=== PATIENT | female | born 1965 | race Caucasian/White ===

== ENCOUNTER 2023-08-04 11:11 | Outpatient (OUT) | payer BC, SELFPAY ==
[2023-08-04 11:34] LABS: Basophils Percent Auto 0.3 % (0.2-2.0); Eosinophils Absolute Auto 0.1 10^3/uL (0.0-0.7); Hemoglobin 12.7 g/dL (12.0-16.0); Immature Granulocytes Abs Auto 0.01 10^3/uL (0.00-0.03); Immature Granulocytes Pct Auto 0.1 % (0.0-0.5); Lymphocytes Absolute Auto 1.5 10^3/uL (1.2-3.8); Lymphocytes Percent Auto 22.3 % (20.5-60.0); Mean Corpuscular HGB Conc 32.6 g/dL (29.9-35.2); Mean Corpuscular Hemoglobin 30.7 pg (26.7-34.0); Mean Corpuscular Volume 94.2 fL (81.0-99.0); Mean Platelet Volume 10.8 fL (9.5-13.5); Monocytes Absolute Auto 0.5 10^3/uL (0.3-0.8); Monocytes Percent Auto 7.7 % (1.7-12.0); Neutrophils Absolute Auto 4.6 10^3/uL (1.4-6.5); Neutrophils Percent Auto 68.6 % (43.0-75.0); Platelet Count 185 10^3/uL (150-450); Red Blood Count 4.14 10^6/uL (4.20-5.40); Red Cell Distribution Width 12.2 % (11.0-15.0); White Blood Count 6.8 10^3/uL (4.0-11.0)
[2023-08-04 12:00] LABS: Alanine Aminotransferase 22 U/L (14-59); Albumin Globulin Ratio 0.9; Albumin Level 3.3 g/dL (3.4-5.0); Alkaline Phosphatase 98 U/L (46-116); Anion Gap 9.4; Aspartate Amino Transferase 18 U/L (15-37); BUN Creatinine Ratio 15.3; Bilirubin Total 0.3 mg/dL (0.2-1.0); Calcium 8.2 mg/dL (8.5-10.1); Carbon Dioxide 29.7 mmol/L (21.0-32.0); Chloride 106 mmol/L (98-107); Chol HDL Ratio 2.7; Cholesterol 187 mg/dL (<=200); Estimated GFR (African America >60 (>=60); Estimated GFR (Non-African Ame 58 (>=60); Globulin 3.5 g/dL; Glucose 89 mg/dL (74-106); HDL Cholesterol 70 mg/dL (40-60); Potassium 4.1 mmol/L (3.5-5.1); Sodium 141 mmol/L (136-145); Thyroid Stimulating Hormone 2.283 uIU/mL (0.358-3.740); Total Protein 6.8 g/dL (6.4-8.2); Triglycerides 64 mg/dL (<=150); VLDL CHOLESTEROL 12.8 mg/dL
== END 2023-08-04 11:12 | disposition home or self-care (01) ==
LOC: LAB 11:15
PROVIDERS: PCP Family Medicine; Visit Provider Family Medicine
DX: Z00.00 Encounter for general adult medical examination without abnormal findings (principal)
CPT/HCPCS: 36415; 80053; 80061; 84443; 85025

== ENCOUNTER 2023-08-14 12:50 | Outpatient (OUT) | payer BC, SELFPAY ==
--- NOTE | 2023-08-14 12:57 | XR_ITS ---
The [address] [address] Patient Name: RASHAD ALMEIDA MRN: [id number] date: 1965 Sex: F Assigned Patient Location: [facility] Current Patient Location: [facility] Accession/Order Number: [id number] Exam Date: 08/14/2023 13:15 Report Date: 08/14/2023 13:39 At the request of: YNES YEE Procedure: XR DEXA axial skeleton EXAMINATION: XR DEXA axial skeleton, 08/14/2023 1:15 PM EST HISTORY: Asymptomatic Menopausal State Z78.0 COMPARISON: None. TECHNIQUE: Dual-energy X-ray absorptiometry (DEXA) bone density study performed for the axial skeleton. HISTORY: Asymptomatic Menopausal State Z78.0 FINDINGS: Bone mineral density AP spine L1-L4 measures 0.759 g/sq cm. This is a 70.9% reduction from the prior exam. Young adult T score -3.5. WHO classification: Osteoporosis. Total femoral bone mineral density is 0.787 g/sq cm. T score -1.7. WHO classification: Osteopenia XR/XR DEXA axial skeleton IMPRESSION: Significant reduction in bone mineral density, more than physiologic in amount Osteoporosis with high fracture risk Electronically authenticated by: SHAUNA ARNOLD Date: 08/14/2023 13:39
--- NOTE | 2023-08-14 12:57 | MM_ITS ---
Patient Name: RASHAD ALMEIDA MR#: [id number] : 1965 Exam Date: 08/14/2023 Ordering Doctor: DR Verona Corral M.D. RADIOLOGY REPORT PROCEDURE: MM TOMOSYNTHESIS SCREENING BI COMPARISON: MG MAMM SCREEN RADHA W CAD, 05/27/2018. MG MAMM SCREEN RADHA W CAD, 08/10/2020. INDICATIONS: Screening Calculator Name NCI Breast Cancer Risk Assessment Tool 5 Year Breast Cancer Risk 1.10% Lifetime Breast Cancer Risk 7.10% Personal Breast Cancer No Personal Ovarian Cancer No Treatments None Family Cancers Mother with lung cancer at age 72. LOCATION: [facility] BREAST COMPOSITION: Heterogeneously dense,which may obscure small masses. FINDINGS: DIAGNOSTIC CATEGORY 1--NEGATIVE. NO CHANGE FROM COMPARISON ASSESSMENT. Scattered benign-appearing calcifications are present. Scattered benign-appearing lymph nodes are present. RIGHT BREAST: No significant suspicious finding. LEFT BREAST: No significant suspicious finding. RECOMMENDATIONS: ROUTINE MAMMOGRAM AND CLINICAL EVALUATION IN 12 MONTHS. PLEASE NOTE: A NORMAL MAMMOGRAM DOES NOT EXCLUDE THE POSSIBILITY OF BREAST CANCER. A CLINICALLY SUSPICIOUS PALPABLE LUMP SHOULD BE BIOPSIED. Dictated by: Schuyler Amin MD on 08/14/2023 at 14:55 Approved by: Schuyler Amin MD on 08/14/2023 at 14:56
== END 2023-08-14 12:51 | disposition home or self-care (01) ==
PROVIDERS: PCP Family Medicine; Visit Provider Family Medicine
DX: Z12.31 Encounter for screening mammogram for malignant neoplasm of breast (principal); Z78.0 Asymptomatic menopausal state; Z80.1 Family history of malignant neoplasm of trachea, bronchus and lung; M81.0 Age-related osteoporosis without current pathological fracture
CPT/HCPCS: 77063; 77067; 77080

== ENCOUNTER 2023-09-01 18:29 | Emergency (ER) | payer BC, SELFPAY ==
[2023-09-01] VITALS (16 sets, daily range): BP systolic 101–162; BP diastolic 65–92; PULSE 83–112; RESP 18; TEMP 37.2; O2SAT 94–98; BMI 30.6
--- NOTE | 2023-09-01 19:14 | XR_ITS ---
The [address] [address] Patient Name: RASHAD ALMEIDA MRN: [id number] date: 1965 Sex: F Assigned Patient Location: ED.MAIN Current Patient Location: ED[facility]MAIN Accession/Order Number: [id number] Exam Date: 09/01/2023 20:00 Report Date: 09/01/2023 20:37 At the request of: REINA EASLEY Procedure: XR chest 1V EXAMINATION: XR chest 1V, , 09/01/2023 8:00 PM EST INDICATION: Chest tightness HISTORY: Ordering Provider Reason for Exam: Chest tightness Technologist Note: Additional: COMPARISON: Chest x-ray dated 10/11/2022. TECHNIQUE: Chest x-ray: One view. FINDINGS: No pneumothorax, pleural effusion or focal airspace consolidation. Heart is normal in size. Bony thorax is unremarkable. XR/XR chest 1V IMPRESSION: No acute cardiopulmonary process. Electronically authenticated by: KIKI MONTIEL Date: 09/01/2023 20:37
--- NOTE | 2023-09-01 19:14 | ECG_ITS ---
[facility] Test Date: 2023-09-01 Pat Name: RASHAD ALMEIDA Department: Room: - Gender: Female Manager Play: : 1965 Requested By: YNES YEE Order Number: [id number] Reading MD: MARI ANN Measurements Intervals [place] Rate: 126 P: 69 [place]: 170 QRS: 71 QRSD: 78 T: 23 QT: 288 QTc: 363 Interpretive Statements 1120 Sinus tachycardia 9150 abnormal ECG Electronically Signed On 09-02-2023 7:08:42 EST by MARI ANN
--- OUTSIDE RECORDS SUMMARY | 2023-09-01 19:14 | XMS_ITS | CCD ---
Author Name Unknown Address [address] [place] [address] [id number] [place] [address] Organization [facility] Care Team Providers Care Street Commissioner Name Role Phone Verona Corral Unavailable MYRIAM ., DR LORNE Gomez Attending Unavailable MIGUEL ., DR LORNE Gomez Consulting Unavailable MIGUEL ., DR LORNE Gomez Admitting Unavailable NAKIA, DR VERONA Gomez Primary Care Unavailable JEFFERSONVILLE, DR SHAUNA Tapia Consulting Unavailable MURILLO, WILLIS Consulting Unavailable DIABCHRISTOPHER Consulting Unavailable NAKIA, DR VERONA Gomez Attending Unavailable NAKIA, DR VERONA Gomez Consulting Unavailable NAKIA, DR VERONA Gomez Primary Care Unavailable CORRAL, DR VERONA Gomez Admitting Unavailable NAKIA, DR VERONA Gomez Attending Unavailable CORRAL, DR VERONA Gomez Consulting Unavailable CORRAL, DR VERONA Gomez Primary Care Unavailable NAKIA, DR VERONA Gomez Admitting Unavailable Verona Corral Unavailable Unavailable Unavailable Dr. Verona Corral Primary Care Unav ailable MD RITA ARMENTA Attending Unavailable MD RITA ARMENTA Referring Unavailable Rita Armenta Attending Unavailable Dr. Verona Corral Primary Care Unav ailable Allergies Allergy Classification Reported Allergen(s) Allergy Type Date of Onset Reaction(s) Facility (4 sources) patient allergy list reviewed by nurse or physicia Propensity to adverse reactions 8 Comment:Done [employer] Other (4 sources) Allergies Reconciled Propensity to adverse reactions Unknown [employer] Other Medications Current Medications Medication Drug Class(es) Dates Sig (Normalized) Sig (Original) clonazePAM 0.5 mg oral tablet (13 sources) Benzodiazepine Start: 08-27-2023 take 1 tablet by mouth once daily as needed clonazePAM 0.5 MG TAKE 1 TABLET BY MOUTH DAILY NEEDED for Jul, Active Start: 06-10-2023 take 1 tablet by gabriel th once daily as needed clonazePAM 0.5 MG TAKE 1 TABLET BY MOUTH DAILY NEEDED for May, Active Start: 03-25-2023 take 1 tablet by gabriel th once daily as needed clonazePAM 0.5 MG TAKE 1 TABLET BY MOUTH DAILY NEEDED for Feb, Active Start: 10-10-2022 clonazePAM 0.5 MG Oral Tablet Quantity: 90 Refills: 0 Ordered: 10-Oct-2022 DO Start : 10-Oct-2022 Active Start: 10-10-2022 take 1 tablet by gabriel th once daily as needed KlonoPIN 0.5 MG 1 tablet Orally daily prn for 90 days Oct, Active folic acid 0.8 mg oral capsule (13 sources) take 1 capsule by mo nch every twenty-four hours Folic Acid 0.8 MG 1 capsule Orally Once a day Active take 1 capsule by mouth once aden ly Folic Acid 0.8 MG 1 capsule Orally Once a day Active take 1 tablet by mouth once terri y Folic Acid 1 MG Oral Tablet TAKE 1 TABLET DAILY. Quantity: 0 Refills: 0 Ordered: 06-Nov-2022 DO Active ibandronic acid 150 mg oral tablet (1 source) Bisphosphonate take 1 tablet by mouth once daily Ibandronate Sodium 150 MG 1 tablet 60 minutes before the first food, beverage or medicine of the day with plain water Orally for 90 days Active ozempic (0.25 or 0.5 mg/dose) 2 mg/3ml solution pen-injector (2 sources) Ozempic (0.25 or 0.5 MG/DOSE) 2 MG/3ML 0.25mg Subcutaneous weekly for 28 days Active Completed/Discontinued Medications Medication Drug Class(es) Dates Sig (Normalized) Sig (Original) flecainide acetate 100 mg oral tablet (3 sources) Antiarrhythmic Start: 11-06-2022 Flecainide Acetate 100 MG Oral Tablet Take 2 tablets as needed for SVT Quantity: 6 Refills: 0 Ordered: 06-Nov-2022 Rita Armenta MD Start : 06-Nov-2022 Active magnesium oxide 400 mg oral tablet (3 sources) Start: 11-06-2022 take 1 tablet by mouth twice daily Magnesium Oxide 400 MG Oral Tablet TAKE 1 TABLET TWICE DAILY. Quantity: 180 Refills: 3 Ordered: 06-Nov-2022 Rita Armenta MD Start : 06-Nov-2022 Active new start meloxicam 15 mg oral tablet (6 sources) Nonsteroidal Anti-inflammatory Drug Start: 07-16-2022 take 1 tablet by mouth once daily as needed Meloxicam 15 MG Oral Tablet TAKE 1 TABLET DAILY NEEDED. Quantity: 0 Refills: 0 Ordered: 16-Jul-2022 DO Start : 16-Jul-2022 Active methotrexate 2.5 mg oral tablet (13 sources) Folate Analog Metabolic Inhibitor Start: 01-14-2022 take 6 tablets by mouth every week Methotrexate Sodium 2.5 MG Oral Tablet TAKE 6 TABLETS WEEKLY. Quantity: 0 Refills: 0 Ordered: 29-Jul-2022 DO Start : 14-Jan-2022 Active Methotrexate Act kelley metoprolol tartrate 50 mg oral tablet (3 sources) beta-Adrenergic Afshan Start: 11-06-2022 Metopr olol Tartrate 50 MG Oral Tablet Take 1 tablet as needed for SVT Quantity: 3 Refills: 0 Ordered: 06-Nov-2022 Rita Armenta MD Start : 06-Nov-2022 Active Triamcinolone (10 sources) Corticosteroid Start: 02-23-2015 KENALOG - 10 m g Jan, 40 mg Problems Active Problems Problem Classification Problem Date Documented Date Episodic/Chronic Anxiety disorders (20 sources) Anxiety; Translations: [Anxiety disorder, unspecified] Onset: 10-26-2017 Chronic Cardiac dysrhythmias (17 sources) Supraventricular tachycardia; Translations: [Supraventricular tachycardia] Onset: 10-14-2022 Chronic Cardiac dysrhythmias (13 sources) Palpitations; Translations: [Tachycardia, unspecified] Onset: 10-11-2022 Episodic E Codes: Adverse effects of medical drugs (1 source) Adverse effect of appetite depressants, initial encounter; Translations: [ADVERS EFF APPETITE DEPRESSANT INIT] Onset: 10-14-2022 Episodic Fluid and electrolyte disorders (1 source) Dehydration; Translations: [DEHYDRATION] Onset: 10-14-2022 Episodic Heart valve disorders (1 source) Rheumatic tricuspid insufficiency; Translations: [RHEUMATIC TRICUSPID INSUFFICIENCY] Onset: 10-29-2022 Chronic Mood disorders (10 sources) Major depressive disorder, single episode, unspecified; Translations: [Depression] Chronic Other aftercare (1 source) Other halfway (current) drug therapy; Translations: [OTH CHALK TESTER CURRENT DRUG THERAPY] Onset: 10-14-2022 Episodic Other aftercare (3 sources) Treatment changed; Translations: [Long-term (current) use of other medications] Episodic Other connective tissue disease (4 sources) Pain in left foot; Translations: [Pain in left foot] Episodic Other female genital disorders (4 sources) Dyspareunia; Translations: [Dyspareunia] Chronic Other inflammatory condition of skin (14 sources) Psoriasis; Translations: [Psoriasis, unspecified] Chronic Other inflammatory condition of skin (1 source) Psoriasis, unspecified; Translations: [PSORIASIS UNSPECIFIED] Onset: 10-14-2022 Chronic Other nutritional; endocrine; and metabolic disorders (16 sources) Body mass index 30+ - obesity; Translations: [Body mass index (BMI) 30.0-30.9, adult] Onset: 12-09-2018 Chronic Other nutritional; endocrine; and metabolic disorders (1 source) Body mass index (BMI) 30.0-30.9, adult Chronic Other nutritional; endocrine; and metabolic disorders (2 sources) Obesity; Translations: [Obesity, unspecified] Chronic Other nutritional; endocrine; and metabolic disorders (1 source) Obesity, unspecified Chronic Other nutritional; endocrine; and metabolic disorders (1 source) Body mass index (BMI) 31.0-31.9, adult Chronic Other nutritional; endocrine; and metabolic disorders (3 sources) Overweight in adulthood with body mass index of 25 or more but less than 30; Translations: [Overweight] Episodic Other nutritional; endocrine; and metabolic disorders (1 source) Overweight Episodic Other nutritional; endocrine; and metabolic disorders (1 source) Body mass index (BMI) 29.0-29.9, adult Episodic Other nutritional; endocrine; and metabolic disorders (20 sources) Body mass index 25-29 - overweight; Translations: [Body mass index (BMI) 28.0-28.9, adult] Onset: 12-09-2018 Episodic Other nutritional; endocrine; and metabolic disorders (4 sources) Overweight; Translations: [Overweight] Episodic Other screening for suspected conditions (not mental disorders or infectious disease) (1 source) Encounter for screening mammogram for malignant neoplasm of breast Episodic Otitis media and related conditions (4 sources) Non-suppurative otitis media; Translations: [Unspecified nonsuppurative otitis media, left ear] Episodic Residual codes; unclassified (1 source) Asymptomatic menopausal state Episodic Skin and subcutaneous tissue infections (4 sources) Localized infection of skin AND/OR subcutaneous tissue; Translations: [Local infection of the skin and subcutaneous tissue, unspecified] Episodic Unclassified (1 source) CONTACT W/AND (SUSP) EXPOS COVID-19; Translations: [CONTACT W/AND (SUSP) EXPOS COVID-19] Onset: 10-14-2022 Past or Other Problems Problem Classification Problem Date Documented Da te Episodic/Chronic Other bone disease and musculoskeletal deformities (4 sources) Bone density finding; Translations: [Other specified disorders of bone density and structure, unspecified site] Onset: 09-17-2017 Episodic Other lower respiratory disease (4 sources) Cough; Translations: [Cough] Onset: 10-11-2018 Episodic Other non-traumatic joint disorders (4 sources) Arthralgia of the lower leg; Translations: [Pain in joint, lower leg] Onset: 09-17-2017 Episodic Residual codes; unclassified (4 sources) Insomnia; Translations: [Insomnia, unspecified] Onset: 11-23-2017 Episodic Unclassified (3 sources) Patient status finding; Translations: [Patient new to provider] Unclassified (3 sources) Never smoked tobacco; Translations: [Never a smoker] Results Test Name Value Interpretation Reference Range Facility [facility] CARDIAC STRESS/REST INJE CTIONon 12-04-2022 [facility] CARDIAC STRESS/REST INJECTION Patient Name: LORENA ALMEIDA STUDY: MYOCARDIAL PERFUSION STRESS TEST WITH EXERCISE Performing facility: [facility], [address] [place] [address], [address], [place] [address] [facility] Provider: Rita Armenta MD, [facility] PCP: Dr. Luis Corral Supervising provider: Rita Armenta MD, [facility] INDICATION: Palpitations PSVT HISTORY: Gender: F; Age: 57 y/o ; Height: 0 cm; Weight: 0 kg. Arrhythmias; Palpitation, SVT Denies smoking. COMPARISON: No comparison. ACCESSION NUMBER(S): [id number]; [id number]; [id number] ORDERING CLINICIAN: RITA ARMENTA TECHNIQUE: ONE DAY protocol. Stress injection: Date:12-04-22, 35.7 mCi of Myoview IV at peak exercise. Rest injection: Date: 12-04-22, 10.9 mCi of Myoview IV at rest. Imaging was performed by gated tomographic technique. STRESS TEST DATA: Resting heart rate was 59 BPM. Resting blood pressure was 120/72 mmHg. The patient exercised using a Efrem exercise protocol. 7:00 minutes exercised. 107 % of MPHR achieved for age. 8.50 METS achieved. Maximum heart rate was 176 BPM. Maximum blood pressure was 148/80 mmHg. DTS 7. TEST TERMINATED DUE TO: Fatigue FINDINGS: STRESS TEST RESULTS: Resting electrocardiogram revealed normal sinus rhythm. The patient had no significant ECG changes with maximal stress. The patient did not have chest pains/symptoms during the procedure. There was a normal recovery phase. There were no significant dysrhythmias. IMAGING RESULTS: Image quality was good. Rest and stress tomographic images were reviewed and revealed normal perfusion without evidence of ischemia, myocardial infarction, or left ventricular dilatation with stress. Overall left ventricular systolic function appeared to be normal without regional wall motion abnormalities. LV ejection fraction was 65 %. TID is 1.1 and is normal. There were evidence of breast attenuation artifact. IMPRESSION: Normal exercise Myoview cardiac perfusion stress test. No evidence of ischemia or myocardial infarction by perfusion imaging. Normal left ventricular systolic function, ejection fraction 65%. No exercise provoked significant ischemic ECG changes or chest pain symptoms. No previous study available for comparison Good exercise tolerance. Electronically signed by: VINCENZO DUEÑAS MD Normal [facility] No Panel Informationon 12-04 Normal -[facility] Work Phone: Office Visit (Cardiology)on 11-06-2022 Follow-up visit Diagnoses/Problems Assessed Patient new to provider Palpitations (785.1) (R00.2) Overweight with body mass index (BMI) of 28 to 28.9 in adult (278.02,V85.24) (E66.3,Z68.28) Never a smoker Paroxysmal SVT (supraventricular tachycardia) (427.0) (I47.1) Orders Overweight with body mass index (BMI) of 28 to 28.9 in adult Healthy Weight Tips; Status:Complete - Retrospective Authorization; Done: 06Nov2022 Some eating tips that can help you lose weight.; Status:Complete - Retrospective Authorization; Done: 06Nov2022 Palpitations IO EKG Electrocardiogram- 12 Lead; Status:Complete; Done: 06Nov2022 Palpitations, Paroxysmal SVT (supraventricular tachycardia) NM Cardiac Stress/Rest Nuclear Med Order; Status:Hold For - Scheduling,Retrospecti ve Authorization; Requested for:06Nov2022; Radiologist to Determine Optimal Study : Y What are the patient's signs and symptoms? : svt Paroxysmal SVT (supraventricular tachycardia) Start: Flecainide Acetate 100 MG Oral Tablet; Take 2 tablets as needed for SVT Start: Magnesium Oxide 400 MG Oral Tablet; TAKE 1 TABLET TWICE DAILY Start: Metoprolol Tartrate 50 MG Oral Tablet; Take 1 tablet as needed for SVT SocHx: Never a smoker Tobacco Use Screening; Status:Complete; Done: 06Nov2022 Patient Instructions Please bring all medicines, vitamins, and herbal supplements with you when you come to the office. Prescriptions will not be filled unless you are compliant with your follow up appointments or have a follow up appointment scheduled as per instruction of your physician. Refills should be requested at the time of your visit. Start Magnesium Oxide 400 mg 1 tablet twice daily. If patient experiences diarrhea decrease down to once daily. Per Dr. Rita Armenta MD 3-4 doses of PRN medications sent to pharmacy. Follow up in [4 ] months Chief Complaint LORENA ALMEIDA is being seen for a cardiovascular evaluation. LORENA ALMEIDA is being seen for SVT. History of Present Illness Patient is new to this provider. She is accompanied by her to the office. 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 Her palpitations were very infrequent but over the last year or so they are becoming more frequent. Sometimes they last a few minutes sometimes they last longer. She describes them as a sudden sensation of heart jumping racing, trying to get out of her chest almost, and when it last for several minutes it is associated with lightheadedness presyncope diaphoresis pallor, and chest discomfort. Sometimes she tries vagal maneuvers and it breaks the palpitations. She has on and off being on Adipex, losing 10 pounds each time she is on the medication. This is supervised by physician. Of late, because of the palpitations and her tachycardia, she is no longer using Adipex. She rarely uses caffeinated beverages. She has no known drug allergies she is never a smoker, she does not have a history of hypertension diabetes, no history of coronary artery disease. 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 She tells me that she is very hesitant to take any medications. She does not give history of symptoms suggestive of obstructive sleep apnea. She has never had a treadmill stress test. Reviewed her echocardiogram report. Her LV function is preserved and she does not have any significant valvular heart disease. Reviewed records from [facility] dated 10/12/2022. Dr. Negron's office notes were also reviewed. Laboratory data from 10/12/2022 show hematocrit of 35 hemoglobin 11.4 platelets 150 sodium 144 potassium 4 GFR greater than 60 albumin 2.8. TSH was normal Assessment: 1. 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 2. Echocardiogram 10/24/2022-normal chamber dimensions grossly normal valves no pericardial effusion LVEF 55 to 60% normal diastolic function mild tricuspid regurgitation left atrial volume index was reported to be? 60 mL?? RV systolic pressure was reported to be about 25 to 30 mmHg. 3. Carotid ultrasound 10/12/2022-normal examination 4. Patient is on methotrexate for? Psoriasis Recommendations: 1. Extensive discussion about reentrant tachycardia. She has tried vagal maneuvers at times with success. However there has been an increase in the frequency and duration of her symptoms, at this point I am not sure whether this is related to add Effexor count, but the decision has been made to hold off on Adipex. I told her that if she would like to try medications for weight loss she should talk to her primary physician about agents such as Rybelsus or Mounjaro. 2. Magnesium oxide 400 mg p.o. twice daily 3. Talke (more content not included)... Normal [employer] Tobacco Screening.on 023 Adult depression screening assessment No -[facility] [address] DO Work Phone: Tobacco use status [facility] b) No [facility] DO Work Phone: ECHOCARDIO M/2D COMPLETEon 0 10-24-2022 ECHOCARDIO M/2D COMPLETE Patient: LORENA ALMEIDA Exam Date: 10/24/2022 : 1965 Gender:F Ordering : DR VERONA CORRAL M.D. Admission #: [id number] Family : Order #: [id number] CLICK HERE TO VIEW EXAM ECHOCARDIOGRAM REPORT PROCEDURE: CARDIO PULMONARY ECHOCARDIO M/2D COMP INDICATIONS: Palpitations COMPARISON: None. DESCRIPTION: COMPLETE ECHOCARDIOGRAM Real-time transthoracic echocardiography with 2D, M-mode, spectral and color flow Doppler performed. QUALITY: Technical quality was good. 64 165# BP 124/80 LEFT VENTRICLE: Normal chamber size. Normal left ventricular wall thickness. LV EF: Normal left ventricular ejection fraction, (>55%). DIASTOLIC: No diastolic dysfunction. ATRIAL SEPTUM: LEFT ATRIUM: Normal chamber size. RIGHT ATRIUM: Normal chamber size. RIGHT VENTRICLE: Normal chamber size. Normal right ventricular systolic function. TRICUSPID VALVE: Normal mobility and thickness. No stenosis with mild regurgitation. No evidence of pulmonary hypertension. RVSP 30 mmHg MITRAL VALVE: Normal mobility and thickness. No evidence of mitral valve stenosis. There is no mitral annular calcification. Trivial mitral regurgitation. AORTIC VALVE: Normal trileaflet appearance. No visible sclerosis. Normal leaflet mobility. No evidence of aortic valve stenosis. No aortic regurgitation. AORTIC ROOT: Normal diameter and appearance. PULMONIC VALVE: Normal thickness and mobility. No stenosis. Trivial regurgitation. PERICARDIUM: No evidence of pericardial effusion. IVC: Collapses with inspirations. PLEURA: CONCLUSION: 1. Normal ventricular systolic function. LVEF is 55 to 60%. 2. Normal diastolic function. 3. Mild tricuspid regurgitation. 4. No pericardial effusion. 5. Normal right-sided pressures. Adult Echocardiography Procedure Report Left Ventricle LVEDD (3.7 - 5.6 cm): 4.55 cm LVESD (2.2 - 4.0 cm): 3.18 cm LVIVS thickness (0.6 - 1.2 cm): 1.03 cm LVPW thickness (0.5 - 1.0 cm): 0.58 cm e': 0.13 m/s E - e': 5.83 LVOT Max Gradient: 4.81 mm[Hg], 4.81 mm[Hg] Peak Velocity (LVOT): 1.10 m/s, 1.10 m/s Mean Velocity (LVOT): 0.76 m/s, 0.76 m/s LVOT Diameter 2.10 cm Left Ventricular Ejection Fraction: 55-60% Left Atrium LA Volume Index (2D A2C): 60.39 ml, 60.39 ml Left Atrium Systolic Dimension: 3.62 cm Mitral Valve MV E to A Ratio: 1.15 Mitral Valve A-Wave Peak Velocity: 0.64 m/s Mitral Valve E-Wave Peak Velocity: 0.74 m/s Right Ventricle Aorta AO Root Diam: 3.21 cm Aortic Valve AoV Area (Peak Isrrael): 3.00 cm2, 3.00 cm2 Peak Velocity(Antegrade Flow): 1.27 m/s Peak Gradient(Antegrade Flow): 6.47 mm[Hg] Tricuspid Valve Peak Velocity (Regurgitant Flow): 2.39 m/s, 2.60 m/s, 2.46 m/s Peak Velocity: 0.54 m/s Pulmonic Valve Peak Velocity: 0.90 m/s, 0.86 m/s Peak Gradient: 3.27 mm[Hg], 2.98 mm[Hg] Right Atrium Right Atrium Systolic Pressure: 40.37 ml, 40.37 ml Dictated by: Max Davila M.D. on 10/24/2022 at 14:52 Approved by: Max Davila M.D. on 10/24/2022 at 14:55 Normal [facility] ECHOCARDIO M/2D COMPLETE [employer] Other CBC AUTO DIFFon 10-12-2022 BASO # 0.0 103/ul Normal 0.0-0.1 [facility] Comment on above: Performed By: #### C [facility] #### [facility] [address] [place] [address] Dr. Drea Rockwell Basophils/100 WBC (Bld) 0.2 % Normal 0.2-2.0 [facility] Comment on above: Performed By: #### C ANALY #### [facility] [address] [place] [address] Dr. Drea Rockwell EO # 0.1 103/ul Normal 0.0-0.7 [facility] Comment on above: Performed By: #### C VDTBH #### [facility] [address] [place] [address] Dr. Drea Rockwell Eosinophils/100 WBC (Bld) 2.4 % Normal 0.9-7.0 [facility] Comment on above: Performed By: #### C VDTBH #### [facility] [address] [place] [address] Dr. Drea Rockwell Erythrocyte distribution width (RBC) [Ratio] 12.5 % Normal 11.0-15.0 [facility] Comment on above: Performed By: #### C VDTBH #### [facility] [address] [place] [address] Dr. Drea Rockwell Hematocrit (Bld) [Volume fraction] 34.8 % Critically low 36.0-48.0 [facility] Comment on above: Performed By: #### C VDTBH #### [facility] [address] [place] [address] Dr. Drea Rockwell Hemoglobin (Bld) [Mass/Vol] 11.4 g/dL Critically low 12.0-16.0 [facility] Comment on above: Result Comment: IV f luids given Performed By: #### C VDTBH #### [facility] [address] [place] [address] Dr. Drea Rockwell IG # 0.00 10e3/ul Normal 0.00-0.03 [facility] Comment on above: Performed By: #### C VDTBH #### [facility] [address] [place] [address] Dr. Drea Rockwell IG % 0.0 % Normal 0.0-0.5 [facility] Comment on above: Performed By: #### C VDTBH #### [facility] [address] [place] [address] Dr. Drea Rockwell LYMPH # 1.5 103/ul Normal 1.2-3.8 [facility] Comment on above: Performed By: #### C VDTBH #### [facility] [address] [place] [address] Dr. Drea Rockwell Lymphocytes/100 WBC (Bld) 33.7 % Normal 20.5-60.0 [facility] Comment on above: Performed By: #### C VDTBH #### [facility] [address] [place] [address] Dr. Drea Rockwell MANUAL DIFF REQ NO Normal [facility] Comment on above: Performed By: #### C VDTBH #### [facility] [address] [place] [address] Dr. Drea Rockwell MCH (RBC) [Entitic mass] 29.9 pg Normal 26.7-34.0 [facility] Comment on above: Performed By: #### C VDTBH #### [facility] [address] [place] [address] Dr. Drea Rockwell MCHC (RBC) [Mass/Vol] 32.8 g/dL Normal 29.9-35.2 [facility] Comment on above: Performed By: #### C VDTBH #### [facility] [address] [place] [address] Dr. Drea Rockwell MCV (RBC) [Entitic vol] 91.3 fL Normal 81.0-99.0 [facility] Comment on above: Performed By: #### C VDTBH #### [facility] [address] [place] [address] Dr. Drea Rockwell MONO # 0.4 103/ul Normal 0.3-0.8 [facility] Comment on above: Performed By: #### C VDTBH #### [facility] [address] [place] [address] Dr. Drea Rockwell Monocytes/100 WBC (Bld) 9.3 % Normal 1.7-12.0 [facility] Comment on above: Performed By: #### C VDTBH #### [facility] [address] [place] [address] Dr. Drea Rockwell NEUT # 2.5 103/ul Normal 1.4-6.5 [facility] Comment on above: Performed By: #### C VDTBH #### [facility] [address] [place] [address] Dr. Drea Rockwell Neutrophils/100 WBC (Bld) 54.4 % Normal 43.0-75.0 [facility] Comment on above: Performed By: #### C VDTBH #### [facility] [address] [place] [address] Dr. Drea Rockwell Platelet mean volume (Bld) [Entitic vol] 11.1 fL Normal 9.5-13.5 [facility] Comment on above: Performed By: #### C VDTBH #### [facility] [address] [place] [address] Dr. Drea Rockwell PLT 150 103/ul Normal 150-450 [facility] Comment on above: Performed By: #### C VDTBH #### [facility] [address] [place] [address] Dr. Drea Rockwell RBC 3.81 106/ul Critically low 4.20-5.40 [facility] Comment on above: Performed By: #### C VDTBH #### [facility] [address] [place] [address] Dr. Drea Rockwell WBC 4.5 103/ul Normal 4.0-11.0 [facility] Comment on above: Performed By: #### C VDTBH #### [facility] [address] [place] [address] Dr. Drea Rockwell PROF 14(COMP METB)on 023 Albumin [Mass/Vol] 2.8 g/dL Critically low 3.4-5.0 [facility] Comment on above: Performed By: #### C VDTBH #### [facility] [address] [place] [address] Dr. Drea Rockwell Albumin/Globulin [Mass ratio] 1.1 {ratio} Normal [facility] Comment on above: Performed By: #### C VDTBH #### [facility] [address] [place] [address] Dr. Drea Rockwell ALP [Catalytic activity/Vol] 66 U/L Normal 46-116 [facility] Comment on above: Performed By: #### C VDTBH #### [facility] [address] [place] [address] Dr. Drea Rockwell ALT [Catalytic activity/Vol] 17 U/L Normal 14-59 [facility] Comment on above: Performed By: #### C VDTBH #### [facility] [address] [place] [address] Dr. Drea Rockwell Anion gap [Moles/Vol] 13.4 mmol/L Normal [facility] Comment on above: Performed By: #### C VDTBH #### [facility] [address] [place] [address] Dr. Drea Rockwell AST [Catalytic activity/Vol] 13 U/L Critically low 15-37 [facility] Comment on above: Performed By: #### C VDTBH #### [facility] [address] [place] [address] Dr. Drea Rockwell Bilirubin [Mass/Vol] 0.2 mg/dL Normal 0.2-1.0 [facility] Comment on above: Performed By: #### C VDTBH #### [facility] [address] [place] [address] Dr. Drea Rockwell Calcium [Mass/Vol] 8.1 mg/dL Critically low 8.5-10.1 [facility] Comment on above: Performed By: #### C VDTBH #### [facility] [address] [place] [address] Dr. Drea Rockwell Chloride [Moles/Vol] 109 mmol/L Critically high 98-107 [facility] Comment on above: Performed By: #### C VDTBH #### [facility] [address] [place] [address] Dr. Drea Rockwell CO2 [Moles/Vol] 25.6 mmol/L Normal 21.0-32.0 [facility] Comment on above: Performed By: #### C VDTBH #### [facility] [address] [place] [address] Dr. Drea Rockwell Creatinine [Mass/Vol] 0.83 mg/dL Normal 0.55-1.02 [facility] Comment on above: Performed By: #### C VDTBH #### [facility] [address] [place] [address] Dr. Drea Rockwell EGFR-AF BERMUDIAN >60 Normal >=60 [facility] Comment on above: Performed By: #### C VDTBH #### [facility] [address] [place] [address] Dr. Drea Rockwell EGFR-NON AF BERMUDIAN >60 Normal >=60 [facility] Comment on above: Performed By: #### C VDTBH #### [facility] [address] [place] [address] Dr. Drea Rockwell Globulin (S) [Mass/Vol] 2.6 g/dL Normal [facility] Comment on above: Performed By: #### C VDTBH #### [facility] [address] [place] [address] Dr. Drea Rockwell Glucose [Mass/Vol] 95 mg/dL Normal 74-106 [facility] Comment on above: Performed By: #### C VDTBH #### [facility] [address] [place] [address] Dr. Drea Rockwell Potassium [Moles/Vol] 4.0 mmol/L Normal 3.5-5.1 [facility] Comment on above: Performed By: #### C VDTBH #### [facility] [address] [place] [address] Dr. Drea Rockwell Protein [Mass/Vol] 5.4 g/dL Critically low 6.4-8.2 [facility] Comment on above: Performed By: #### C VDTBH #### [facility] [address] [place] [address] Dr. Drea Rockwell Sodium [Moles/Vol] 144 mmol/L Normal 136-145 [facility] Comment on above: Performed By: #### C VDTBH #### [facility] [address] [place] [address] Dr. Drea Rockwell Urea nitrogen [Mass/Vol] 17.0 mg/dL Normal 7.0-18.0 [facility] Comment on above: Performed By: #### C VDTBH #### [facility] [address] [address] [address] Drea Rockwell Urea nitrogen/Creatinin e [Mass ratio] 20.5 mg/mg Normal [facility] Comment on above: Performed By: #### C VDTBH #### [facility] [address] [address] [address] Drea Rockwell US CAROTID ART BILon 023 US CAROTID ART RADHA EXAMINATION: US CAROTID ART RADHA HISTORY: SHORTNESS OF BREATH COMPARISON: No relevant comparison available. TECHNIQUE: Duplex Doppler ultrasound analysis of carotid and vertebral arteries. . Bilateral carotid arterial duplex examination was performed using B-mode, color flow and spectral analysis. Carotid stenosis is reported according to validated velocity parameters, similar to NASCET criteria. FINDINGS: RIGHT CAROTID ARTERY No atherosclerotic plaque Subclavian: PSV: 80.7 cm/s cm/s EDV: 5.1 cm/s cm/s CCA: Prox: PSV: 63.3 cm/s cm/s EDV: 19.3 cm/s cm/s Mid: PSV: 84.1 cm/s cm/s EDV: 20.4 cm/s cm/s Distal: PSV: 64.4 cm/s cm/s EDV: 18.2 cm/s cm/s BULB: PSV: 64.4 cm/s cm/s EDV: 18.2 cm/s cm/s ICA: Prox: PSV: 54.5 cm/s cm/s EDV: 18.2 cm/s cm/s Mid: PSV: 90.7 cm/s cm/s EDV: 33.6 cm/s cm/s Distal: PSV: 99.1 cm/s cm/s EDV: 39.6 cm/s cm/s ECA: PSV: 60.3 cm/s cm/s EDV: 8.5 cm/s cm/s VERTEBRAL: PSV: 56.4 cm/s cm/s EDV: 20.2 cm/s cm/s ICA/CCA ratio: PSV: 1.5 EDV: 2.2 LEFT CAROTID ARTERY No atherosclerotic plaque Subclavian: PSV: 84.0 cm/s cm/s EDV: 6.3 cm/s CCA: Prox: PSV: 65.8 cm/s cm/s EDV: 24.1 cm/s Mid: PSV: 74.6 cm/s cm/s EDV: 24.1 cm/s Distal: PSV: 77.6 cm/s cm/s EDV: 25.9 cm/s BULB: PSV: 61.1 cm/s cm/s EDV: 16.0 cm/s ICA: Prox: PSV: 56.7 cm/s cm/s EDV: 22.6 cm/s Mid: PSV: 53.4 cm/s cm/s EDV: 23.7 cm/s Distal: PSV: 64.4 cm/s cm/s EDV: 33.6 cm/s ECA: PSV: 66.6 cm/s cm/s EDV: 9.4 cm/s VERTEBRAL: PSV: 55.6 cm/s cm/s EDV: 22.6 cm/s ICA/CCA ratio: PSV: 0.8 EDV: 1.3 IMPRESSION: Normal exam Spectral Doppler US Thresholds (Reference: Jett EG, et al. Radiology 2000; [id number]) Stenosis (%) PSV (cm/sec) VICA/VCCA 0-49 <150 <2.5 50-69 150-225 2.5-4.0 >70 >225 >4.0 Electronically authenticated by: SHAUNA ARNOLD Date: 2022-10-12 09:15 Normal [facility] BNPon 10-11-2022 Natriuretic peptide B (Bld) [Mass/Vol] 201.0 pg/mL Normal <=900.0 [facility] Comment on above: Performed By: #### B TRACK VEHICLE REPAIRER, CMADM, CMP #### [facility] [address] [place] [address] Dr. Drea Rockwell CARDIAC ALFONSO ADMITon 023 CK [Catalytic activity/Vol] 65 U/L Normal 26-192 [facility] Comment on above: Performed By: #### B TRACK VEHICLE REPAIRER, CMADM, CMP #### [facility] [address] [place] [address] [id number] [address] Drea Rockwell CK.MB [Mass/Vol] 1.00 ng/mL Normal <=3.60 [facility] Comment on above: Performed By: #### B TRACK VEHICLE REPAIRER, CMADM, CMP #### [facility] [address] [place] [address] Dr. Drea Rockwell HSTROP 7.4 pg/mL Normal 4.0-51.3 [facility] Comment on above: Result Comment: CUT- OFF POINTS HAVE BEEN ESTABLISHED BASED ON THE FOURTH UNIVERSAL DEFINITIONS OF MYOCARDIAL INFARCTION. THE UPPER REFERENCE LIMIT (URL) OF TROPONIN, DEFINED THE 99TH PERCENTILE OF cTnI DISTRIBUTION IN A REFERENCE POPULATION, HAS BEEN CONFIRMED THE DECISION THRESHOLD FOR AR DIAGNOSIS. Performed By: #### B TRACK VEHICLE REPAIRER, CMADM, CMP #### [facility] [address] [place] [address] Dr. Drea Rockwell AMY 149 ng/mL Critically high 9-82 [facility] Comment on above: Performed By: #### B TRACK VEHICLE REPAIRER, CMADM, CMP #### [facility] [address] [place] [address] Dr. Drea Rockwell CBC AUTO DIFFon 10-11-2022 BASO # 0.0 103/ul Normal 0.0-0.1 [facility] Comment on above: Performed By: #### C VDTBH #### [facility] [address] [place] [address] Dr. Drea Rockwell Basophils/100 WBC (Bld) 0.4 % Normal 0.2-2.0 [facility] Comment on above: Performed By: #### C VDTBH #### [facility] [address] [place] [address] Dr. Drea Rockwell EO # 0.1 103/ul Normal 0.0-0.7 [facility] Comment on above: Performed By: #### C VDTBH #### [facility] [address] [place] [address] Dr. Drea Rockwell Eosinophils/100 WBC (Bld) 1.3 % Normal 0.9-7.0 [facility] Comment on above: Performed By: #### C VDTBH #### [facility] [address] [place] [address] Dr. Drea Rockwell Erythrocyte distribution width (RBC) [Ratio] 12.5 % Normal 11.0-15.0 [facility] Comment on above: Performed By: #### C VDTBH #### [facility] [address] [place] [address] Dr. Drea Rockwell Hematocrit (Bld) [Volume fraction] 42.5 % Normal 36.0-48.0 [facility] Comment on above: Performed By: #### C VDTBH #### [facility] [address] [place] [address] Dr. Drea Rockwell Hemoglobin (Bld) [Mass/Vol] 14.3 g/dL Normal 12.0-16.0 [facility] Comment on above: Performed By: #### C VDTBH #### [facility] [address] [place] [address] Dr. Drea Rokcwell IG # 0.01 10e3/ul Normal 0.00-0.03 [facility] Comment on above: Performed By: #### C VDTBH #### [facility] [address] [place] [address] Dr. Drea Rockwell IG % 0.1 % Normal 0.0-0.5 [facility] Comment on above: Performed By: #### C VDTBH #### [facility] [address] [place] [address] Dr. Drea Rockwell LYMPH # 2.2 103/ul Normal 1.2-3.8 [facility] Comment on above: Performed By: #### C VDTBH #### [facility] [address] [place] [address] Dr. Drea Rockwell Lymphocytes/100 WBC (Bld) 31.5 % Normal 20.5-60.0 [facility] Comment on above: Performed By: #### C VDTBH #### [facility] [address] [place] [address] Dr. Drea Rockwell MANUAL DIFF REQ NO Normal [facility] Comment on above: Performed By: #### C VDTBH #### [facility] [address] [place] [address] Dr. Drea Rockwell MCH (RBC) [Entitic mass] 30.6 pg Normal 26.7-34.0 [facility] Comment on above: Performed By: #### C VDTBH #### [facility] [address] [place] [address] Dr. Drea Rockwell MCHC (RBC) [Mass/Vol] 33.6 g/dL Normal 29.9-35.2 [facility] Comment on above: Performed By: #### C VDTBH #### [facility] [address] [place] [address] Dr. Drea Rockwell MCV (RBC) [Entitic vol] 91.0 fL Normal 81.0-99.0 [facility] Comment on above: Performed By: #### C VDTBH #### [facility] [address] [place] [address] Dr. Drea Rockwell MONO # 0.4 103/ul Normal 0.3-0.8 [facility] Comment on above: Performed By: #### C VDTBH #### [facility] [address] [place] [address] Dr. Drea Rockwell Monocytes/100 WBC (Bld) 5.6 % Normal 1.7-12.0 [facility] Comment on above: Performed By: #### C VDTBH #### [facility] [address] [place] [address] Dr. Drea Rockwell NEUT # 4.2 103/ul Normal 1.4-6.5 [facility] Comment on above: Performed By: #### C VDTBH #### [facility] [address] [place] [address] Dr. Drea Rockwell Neutrophils/100 WBC (Bld) 61.1 % Normal 43.0-75.0 [facility] Comment on above: Performed By: #### C VDTBH #### [facility] [address] [place] [address] Dr. Drea Rockwell Platelet mean volume (Bld) [Entitic vol] 11.0 fL Normal 9.5-13.5 [facility] Comment on above: Performed By: #### C VDTBH #### [facility] [address] [address] [address] Drea Rockwell PLT 211 103/ul Normal 150-450 [facility] Comment on above: Performed By: #### C VDTBH #### [facility] [address] [address] [address] Drea Rockwell RBC 4.67 106/ul Normal 4.20-5.40 [facility] Comment on above: Performed By: #### C VDTBH #### [facility] [address] [address] [address] Drea Rockwell WBC 6.9 103/ul Normal 4.0-11.0 [facility] Comment on above: Performed By: #### C VDTBH #### [facility] [address] [place] [address] Dr. Drea Rockwell Covid-19 PCR ([facility])on 10-01 SARS-CoV-2 (COVID-19) RNA SILVINA+probe Ql (Unsp spec) Not detected Normal NOT DETECTED [facility] Comment on above: Result Comment: When diagnostic testing is negative, the possibility of a false negative should be considered in the context of a patient's recent exposures and the presence of clinical signs and symptoms consistent with SARS-CoV-2. This test is not yet approved or cleared by the [place] FDA. When there are no FDA-approved or cleared tests available, and other criteria are met, FDA can make tests available under an emergency access mechanism called an Emergency Use Authorization (EUA). The EUA for this test is supported by the [employer] of Health and Human Service's declaration that circumstances exist to justify the emergency use of in vitro diagnostics for the detection and/or diagnosis of the virus that causes COVID-19. This EUA will remain in effect for the duration of the COVID-19 declaration justifying emergency of IVDs, unless it is terminated or revoked by the FDA (after which the test may no longer be used). Performed By: #### C VDTBH #### [facility] [address] [place] [address] Dr. Drea Rockwell PROF 14(COMP METB)on 023 Albumin [Mass/Vol] 3.8 g/dL Normal 3.4-5.0 [facility] Comment on above: Performed By: #### B TRACK VEHICLE REPAIRER, CMADM, CMP #### [facility] [address] [address] [address] Drea Rockwell Albumin/Globulin [Mass ratio] 1.2 {ratio} Normal [facility] Comment on above: Performed By: #### B TRACK VEHICLE REPAIRER, CMADM, CMP #### [facility] [address] [address] [address] Drea Rockwell ALP [Catalytic activity/Vol] 86 U/L Normal 46-116 [facility] Comment on above: Performed By: #### B TRACK VEHICLE REPAIRER, CMADM, CMP #### [facility] [address] [place] [address] Dr. Drea Rockwell ALT [Catalytic activity/Vol] 21 U/L Normal 14-59 [facility] Comment on above: Performed By: #### B TRACK VEHICLE REPAIRER, CMADM, CMP #### [facility] [address] [address] [address] Drea Rockwell Anion gap [Moles/Vol] 13.7 mmol/L Normal [facility] Comment on above: Performed By: #### B TRACK VEHICLE REPAIRER, CMADM, CMP #### [facility] [address] [place] [address] Dr. Drea Rockwell AST [Catalytic activity/Vol] 16 U/L Normal 15-37 [facility] Comment on above: Performed By: #### B TRACK VEHICLE REPAIRER, CMADM, CMP #### [facility] [address] [address] [address] Drea Rockwell Bilirubin [Mass/Vol] 0.4 mg/dL Normal 0.2-1.0 [facility] Comment on above: Performed By: #### B TRACK VEHICLE REPAIRER, CMADM, CMP #### [facility] [address] [address] [address] Drea Rockwell Calcium [Mass/Vol] 8.8 mg/dL Normal 8.5-10.1 [facility] Comment on above: Performed By: #### B TRACK VEHICLE REPAIRER, CMADM, CMP #### [facility] [address] [address] [address] Drea Rockwell Chloride [Moles/Vol] 102 mmol/L Normal 98-107 [facility] Comment on above: Performed By: #### B TRACK VEHICLE REPAIRER, CMADM, CMP #### [facility] [address] [address] [address] Drea Rockwell CO2 [Moles/Vol] 27.1 mmol/L Normal 21.0-32.0 [facility] Comment on above: Performed By: #### B TRACK VEHICLE REPAIRER, CMADM, CMP #### [facility] [address] [address] [address] Drea Rockwell Creatinine [Mass/Vol] 1.31 mg/dL Critically high 0.55-1.02 [facility] Comment on above: Performed By: #### B TRACK VEHICLE REPAIRER, CMADM, CMP #### [facility] [address] [address] [address] Drea Rockwell EGFR-AF BERMUDIAN 51 mL/min/1.73m2 Critically low >=60 [facility] Comment on above: Performed By: #### B TRACK VEHICLE REPAIRER, CMADM, CMP #### [facility] [address] [address] [address] Drea Rockwell EGFR-NON AF BERMUDIAN 42 mL/min/1.73m2 Critically low >=60 [facility] Comment on above: Performed By: #### B TRACK VEHICLE REPAIRER, CMADM, CMP #### [facility] [address] [address] [address] Drea Rockwell Globulin (S) [Mass/Vol] 3.3 g/dL Normal [facility] Comment on above: Performed By: #### B TRACK VEHICLE REPAIRER, CMADM, CMP #### [facility] [address] [address] [address] Drea Rockwell Glucose [Mass/Vol] 130 mg/dL Critically high 74-106 [facility] Comment on above: Performed By: #### B TRACK VEHICLE REPAIRER, CMADM, CMP #### [facility] [address] [address] [address] Drea Rockwell Potassium [Moles/Vol] 3.8 mmol/L Normal 3.5-5.1 [facility] Comment on above: Performed By: #### B TRACK VEHICLE REPAIRER, CMADM, CMP #### [facility] [address] [place] [address] Dr. Drea Rockwell Protein [Mass/Vol] 7.1 g/dL Normal 6.4-8.2 [facility] Comment on above: Performed By: #### B TRACK VEHICLE REPAIRER, CMADM, CMP #### [facility] [address] [place] [address] Dr. Drea Rockwell Sodium [Moles/Vol] 139 mmol/L Normal 136-145 [facility] Comment on above: Performed By: #### B TRACK VEHICLE REPAIRER, CMADM, CMP #### [facility] [address] [place] [address] Dr. Drea Rockwell Urea nitrogen [Mass/Vol] 15.0 mg/dL Normal 7.0-18.0 [facility] Comment on above: Performed By: #### B TRACK VEHICLE REPAIRER, CMADM, CMP #### [facility] [address] [place] [address] Dr. Drea Rockwell Urea nitrogen/Creatinin e [Mass ratio] 11.5 mg/mg Normal [facility] Comment on above: Performed By: #### B TRACK VEHICLE REPAIRER, CLAYDM, CMP #### [facility] [address] [place] [address] Dr. Drea Rockwell PROTIMEon 10-11-2022 INR Coag (PPP) [Relative time] 0.99 {INR} Normal [facility] Comment on above: Performed By: #### C VDTBH #### [facility] [address] [place] [address] Dr. Drea Rockwell INR GUIDELINES SEE BELOW Normal [facility] Comment on above: Result Comment: CARROLL RED INR: 2.0 - 3.0 CONDITIONS NOT LISTED BELOW 2.5 - 3.5 FOR PROSTHETIC HEART VALVE REPLACEMENT 2.5 - 3.5 RECURRENT THROMBOSIS Performed By: #### C VDTBH #### [facility] [address] [place] [address] Dr. Drea Rockwell PT Coag (PPP) [Time] 10.5 s Normal 9.0-11.6 [facility] Comment on above: Performed By: #### C VDTBH #### [facility] [address] [place] [address] Dr. Drea Rockwell PTTon 10-11-2022 aPTT Coag (Bld) [Time] 29.4 s Normal 22.3-36.2 [facility] Comment on above: Performed By: #### C VDTBH #### [facility] [address] [place] [address] Dr. Drea Rockwell TROPONIN, HIGH SENSITIVITYon 10-11-2022 HSTROP 10.7 pg/mL Normal 4.0-51.3 [facility] Comment on above: Result Comment: CUT- OFF POINTS HAVE BEEN ESTABLISHED BASED ON THE FOURTH UNIVERSAL DEFINITIONS OF MYOCARDIAL INFARCTION. THE UPPER REFERENCE LIMIT (URL) OF TROPONIN, DEFINED THE 99TH PERCENTILE OF cTnI DISTRIBUTION IN A REFERENCE POPULATION, HAS BEEN CONFIRMED THE DECISION THRESHOLD FOR AR DIAGNOSIS. Performed By: #### C VDTBH #### [facility] [address] [place] [address] Dr. Drea Rockwell XR CHEST 1 Von 10-11-2022 XR CHEST 1 V EXAM: CHEST 1 VIEW HISTORY: SHORTNESS OF BREATH TECHNIQUE: Chest, one view. COMPARISON: None. FINDINGS: Lungs are mildly hyperinflated with biapical scarring. No focal consolidation, pleural effusion, or pneumothorax. Pulmonary vasculature is within normal limits. There is mild aortic atherosclerosis. Heart size is within normal limits. IMPRESSION: 1. No acute cardiopulmonary disease. Electronically authenticated by: WILLIS MURILLO Date: 2022-10-11 13:49 Normal [facility] CBC AUTO DIFFon 09-12-2022 BASO # 0.0 103/ul Normal 0.0-0.1 [facility] Comment on above: Performed By: #### C VDTBH #### [facility] [address] [place] [address] Dr. Drea Rockwell Basophils/100 WBC (Bld) 0.4 % Normal 0.2-2.0 [facility] Comment on above: Performed By: #### C VDTBH #### [facility] [address] [place] [address] Dr. Drea Rockwell EO # 0.1 103/ul Normal 0.0-0.7 [facility] Comment on above: Performed By: #### C VDTBH #### [facility] [address] [place] [address] Dr. Drea Rockwell Eosinophils/100 WBC (Bld) 0.9 % Normal 0.9-7.0 [facility] Comment on above: Performed By: #### C VDTBH #### [facility] [address] [place] [address] Dr. Drea Rockwell Erythrocyte distribution width (RBC) [Ratio] 12.6 % Normal 11.0-15.0 [facility] Comment on above: Performed By: #### C VDTBH #### [facility] [address] [place] [address] Dr. Drea Rockwell Hematocrit (Bld) [Volume fraction] 44.2 % Normal 36.0-48.0 [facility] Comment on above: Performed By: #### C VDTBH #### [facility] [address] [place] [address] Dr. Drea Rockwell Hemoglobin (Bld) [Mass/Vol] 13.2 g/dL Normal 12.0-16.0 [facility] Comment on above: Performed By: #### C VDTBH #### [facility] [address] [place] [address] Dr. Drea Rockwell IG # 0.02 10e3/ul Normal 0.00-0.03 [facility] Comment on above: Performed By: #### C VDTBH #### [facility] [address] [place] [address] Dr. Drea Rockwell IG % 0.4 % Normal 0.0-0.5 [facility] Comment on above: Performed By: #### C VDTBH #### [facility] [address] [place] [address] Dr. Drea Rockwell LYMPH # 1.5 103/ul Normal 1.2-3.8 [facility] Comment on above: Performed By: #### C VDTBH #### [facility] [address] [place] [address] Dr. Drea Rockwell Lymphocytes/100 WBC (Bld) 28.1 % Normal 20.5-60.0 [facility] Comment on above: Performed By: #### C VDTBH #### [facility] [address] [place] [address] Dr. Drea Rockwell MANUAL DIFF REQ NO Normal [facility] Comment on above: Performed By: #### C VDTBH #### [facility] [address] [place] [address] Dr. Drea Rockwell MCH (RBC) [Entitic mass] 30.2 pg Normal 26.7-34.0 [facility] Comment on above: Performed By: #### C VDTBH #### [facility] [address] [place] [address] Dr. Drea Rockwell MCHC (RBC) [Mass/Vol] 29.9 g/dL Normal 29.9-35.2 [facility] Comment on above: Performed By: #### C VDTBH #### [facility] [address] [place] [address] Dr. Drea Rockwell MCV (RBC) [Entitic vol] 101.1 fL Critically high 81.0-99.0 [facility] Comment on above: Performed By: #### C VDTBH #### [facility] [address] [place] [address] Dr. Drea Rockwell MONO # 0.3 103/ul Normal 0.3-0.8 [facility] Comment on above: Performed By: #### C VDTBH #### [facility] [address] [place] [address] Dr. Drea Rockwell Monocytes/100 WBC (Bld) 6.0 % Normal 1.7-12.0 [facility] Comment on above: Performed By: #### C VDTBH #### [facility] [address] [place] [address] Dr. Drea Rockwell NEUT # 3.4 103/ul Normal 1.4-6.5 [facility] Comment on above: Performed By: #### C VDTBH #### [facility] [address] [place] [address] Dr. Drea Rockwell Neutrophils/100 WBC (Bld) 64.2 % Normal 43.0-75.0 [facility] Comment on above: Performed By: #### C VDTBH #### [facility] [address] [address] [address] Drea Rockwell Platelet mean volume (Bld) [Entitic vol] 10.9 fL Normal 9.5-13.5 [facility] Comment on above: Performed By: #### C VDTBH #### [facility] [address] [place] [address] Dr. Drea Rockwell PLT 190 103/ul Normal 150-450 [facility] Comment on above: Performed By: #### C VDTBH #### [facility] [address] [place] [address] Dr. Drea Rockwell RBC 4.37 106/ul Normal 4.20-5.40 [facility] Comment on above: Performed By: #### C VDTBH #### [facility] [address] [place] [address] Dr. Drea Rockwell WBC 5.3 103/ul Normal 4.0-11.0 [facility] Comment on above: Performed By: #### C VDTBH #### [facility] [address] [place] [address] Dr. Drea Rockwell LIPID PROFILEon 09-12-2022 CHOL-HDL RATIO NORM SEE BELOW Normal [facility] Comment on above: Result Comment: 3.3 - 4.4 LOW RISK 4.4 - 7.1 AVERAGE RISK 7.1 - 11.0 MODERATE RISK >11.0 HIGH RISK Performed By: #### L IPID, CMP, TSH #### [facility] [address] [place] [address] Dr. Drea Rockwell Cholesterol [Mass/Vol] 173 mg/dL Normal <=200 [facility] Comment on above: Performed By: #### L IPID, CMP, TSH #### [facility] [address] [place] [address] Dr. Drea Rockwell Cholesterol in HDL [Mass/Vol] 74 mg/dL Critically high 40-60 [facility] Comment on above: Performed By: #### L IPID, CMP, TSH #### [facility] [address] [address] [address] Drea Rockwell Cholesterol in LDL [Mass/Vol] 86.8 mg/dL Normal [facility] Comment on above: Performed By: #### L IPID, CMP, TSH #### [facility] [address] [address] [address] Drea Rockwell Cholesterol.total/ Cholesterol in HDL [Mass ratio] 2.3 {ratio} Normal [facility] Comment on above: Performed By: #### L IPID, CMP, TSH #### [facility] [address] [address] [address] Drea Rockwell HDL NORMAL > or = 60 mg/dl - LO W CARDIOVASCULAR RISK <40 mg/dl - HIGH CARDIOVASCULAR RISK Normal [facility] Comment on above: Performed By: #### L IPID, CMP, TSH #### [facility] [address] [place] [address] Dr. Drea Rockwell LDL CALC NORMAL SEE BELOW Normal [facility] Comment on above: Result Comment: <100 mg/dl OPTIMAL 100 - 129 mg/dl NEAR OR ABOVE OPTIMAL 130 - 159 mg/dl BORDERLINE HIGH 160 - 189 mg/dl HIGH >190 mg/dl VERY HIGH Performed By: #### L IPID, CMP, TSH #### [facility] [address] [address] [address] Drea Rockwell Triglyceride [Mass/Vol] 61 mg/dL Normal <=150 [facility] Comment on above: Performed By: #### L IPID, CMP, TSH #### [facility] [address] [address] [address] Drea Rockwell VLDL CALC 12.2 mg/dL Normal [facility] Comment on above: Performed By: #### L IPID, CMP, TSH #### [facility] [address] [address] [address] Drea Rockwell PROF 14(COMP METB)on 023 Albumin [Mass/Vol] 3.7 g/dL Normal 3.4-5.0 [facility] Comment on above: Performed By: #### L IPID, CMP, TSH #### [facility] [address] [address] [address] Drea Rockwell Albumin/Globulin [Mass ratio] 1.1 {ratio} Normal [facility] Comment on above: Performed By: #### L IPID, CMP, TSH #### [facility] [address] [address] [address] Drea Rockwell ALP [Catalytic activity/Vol] 79 U/L Normal 46-116 [facility] Comment on above: Performed By: #### L IPID, CMP, TSH #### [facility] [address] [place] [address] Dr. Drea Rockwell ALT [Catalytic activity/Vol] 18 U/L Normal 14-59 [facility] Comment on above: Performed By: #### L IPID, CMP, TSH #### [facility] [address] [address] [address] Drea Rockwell Anion gap [Moles/Vol] 9.5 mmol/L Normal [facility] Comment on above: Performed By: #### L IPID, CMP, TSH #### [facility] [address] [place] [address] Dr. Drea Rockwell AST [Catalytic activity/Vol] 13 U/L Critically low 15-37 [facility] Comment on above: Performed By: #### L IPID, CMP, TSH #### [facility] [address] [address] [address] Drea Rockwell Bilirubin [Mass/Vol] 0.3 mg/dL Normal 0.2-1.0 [facility] Comment on above: Performed By: #### L IPID, CMP, TSH #### [facility] [address] [place] [address] Dr. Drea Rockwell Calcium [Mass/Vol] 9.0 mg/dL Normal 8.5-10.1 [facility] Comment on above: Performed By: #### L IPID, CMP, TSH #### [facility] [address] [place], [place] [id number] Dr. Drea Rockwell Chloride [Moles/Vol] 106 mmol/L Normal 98-107 [facility] Comment on above: Performed By: #### L IPID, CMP, TSH #### [facility] [address] [address] [address] Drea Rockwell CO2 [Moles/Vol] 31.7 mmol/L Normal 21.0-32.0 [facility] Comment on above: Performed By: #### L IPID, CMP, TSH #### [facility] [address] [address] [address] Drea Rockwell Creatinine [Mass/Vol] 0.91 mg/dL Normal 0.55-1.02 [facility] Comment on above: Performed By: #### L IPID, CMP, TSH #### [facility] [address] [place] [address] Dr. Drea Rockwell EGFR-AF BERMUDIAN >60 Normal >=60 [facility] Comment on above: Performed By: #### L IPID, CMP, TSH #### [facility] [address] [place] [address] Dr. Drea Rockwell EGFR-NON AF BERMUDIAN >60 Normal >=60 [facility] Comment on above: Performed By: #### L IPID, CMP, TSH #### [facility] [address] [address] [address] Drea Rockwell Globulin (S) [Mass/Vol] 3.3 g/dL Normal [facility] Comment on above: Performed By: #### L IPID, CMP, TSH #### [facility] [address] [place] [address] Dr. Drea Rockwell Glucose [Mass/Vol] 86 mg/dL Normal 74-106 [facility] Comment on above: Performed By: #### L IPID, CMP, TSH #### [facility] [address] [place] [address] Dr. Drea Rockwell Potassium [Moles/Vol] 4.2 mmol/L Normal 3.5-5.1 [facility] Comment on above: Performed By: #### L IPID, CMP, TSH #### [facility] [address] [address] [address] Drea Rockwell Protein [Mass/Vol] 7.0 g/dL Normal 6.4-8.2 [facility] Comment on above: Performed By: #### L IPID, CMP, TSH #### [facility] [address] [address] [address] Drea Rockwell Sodium [Moles/Vol] 143 mmol/L Normal 136-145 [facility] Comment on above: Performed By: #### L IPID, CMP, TSH #### [facility] [address] [address] [address] Drea Rockwell Urea nitrogen [Mass/Vol] 19.0 mg/dL Critically high 7.0-18.0 [facility] Comment on above: Performed By: #### L IPID, CMP, TSH #### [facility] [address] [place] [address] Dr. Drea Rockwell Urea nitrogen/Creatinin e [Mass ratio] 20.9 mg/mg Normal [facility] Comment on above: Performed By: #### L IPID, CMP, TSH #### [facility] [address] [address] [address] Drea Rockwell TSHon 09-12-2022 TSH 1.851 uIU/mL Normal 0.358-3.740 [facility] Comment on above: Performed By: #### L IPID, CMP, TSH #### [facility] [address] [place] [address] Dr. Drea Rockwell Vital Signs Date Time Vital Sign Value Performing Clinician Facility 08-04-2023 09:30-0500 Body height 160.02 cm Verona Corral Other [employer] Other 08-04-2023 09:30-0500 Body mass index (BMI) [Ratio] 31.78 kg/m2 Verona Corral Other [employer] Other 08-04-2023 09:30-0500 Body weight 81.38 kg Verona Corral Other [facility] [employer] Other 08-04-2023 09:30-0500 Diastolic blood pressure 77 mm[Hg] Verona Corral Other [facility] [employer] Other 08-04-2023 09:30-0500 Systolic blood pressure 107 mm[Hg] Verona Corral Other [facility] [employer] Other 12-04-2022 12:00-0400 65 1 Verona Corral Work Phone: [facility] [place] Work Phone: Comment on above: [id number] 11-06-2022 12:44-0500 Diastolic blood pressure 86 mm[Hg] Verona Corral Work Phone: [facility] DO Work Phone: 11-06-2022 12:44-0500 Systolic blood pressure 138 mm[Hg] Verona Corral Work Phone: [facility] DO Work Phone: 11-06-2022 12:43-0500 Body height 162.56 cm Verona Corral Work Phone: [facility] DO Work Phone: 11-06-2022 12:43-0500 Body mass index (BMI) [Ratio] 28.84 kg/m2 Verona Corral Work Phone: [facility] DO Work Phone: 11-06-2022 12:43-0500 Body surface area Derived from formula 1.82 m2 Verona Corral Work Phone: [facility] DO Work Phone: 11-06-2022 12:43-0500 Body weight 76.2 kg Verona Corral Work Phone: [facility] [employer] 250 DO Work Phone: 11-06-2022 12:43-0500 Diastolic blood pressure 90 mm[Hg] Verona Corral Work Phone: [facility] [employer] [facility] DO Work Phone: 11-06-2022 12:43-0500 Heart rate 68 /min Verona Corral Work Phone: [facility] [employer] 250 DO Work Phone: 11-06-2022 12:43-0500 Systolic blood pressure 142 mm[Hg] Verona Corral Work Phone: [facility] [employer] 250 DO Work Phone: 10-17-2022 12:30-0500 Body height 160.02 cm Verona Corral Other [employer] Other 10-17-2022 12:30-0500 Body mass index (BMI) [Ratio] 29.58 kg/m2 Verona Corral Other [employer] Other 10-17-2022 12:30-0500 Body weight 75.75 kg Verona Corral Other [employer] Other 10-17-2022 12:30-0500 Diastolic blood pressure 74 mm[Hg] Verona Corral Other [employer] Other 10-17-2022 12:30-0500 SaO2% (BldA) [Mass fraction] 97 % Verona Corral Other [employer] Other 10-17-2022 12:30-0500 Systolic blood pressure 118 mm[Hg] Verona Corral Other [employer] Other 10-10-2022 09:30-0500 Body height 160.02 cm Verona Corral Other [employer] Other 10-10-2022 09:30-0500 Body mass index (BMI) [Ratio] 29.58 kg/m2 Verona Corral Other [employer] Other 10-10-2022 09:30-0500 Body weight 75.75 kg Verona Corral Other [employer] Other 09-12-2022 09:45-0500 Body height 160.02 cm Verona Corral Other [employer] Other 09-12-2022 09:45-0500 Body mass index (BMI) [Ratio] 30.82 kg/m2 Verona Corral Other [employer] Other 09-12-2022 09:45-0500 Body weight 78.93 kg Verona Corral Other [employer] Other 09-12-2022 09:45-0500 Diastolic blood pressure 80 mm[Hg] Verona Corral Other [employer] Other 09-12-2022 09:45-0500 SaO2% (BldA) [Mass fraction] 97 % Verona Corral Other [employer] Other 09-12-2022 09:45-0500 Systolic blood pressure 122 mm[Hg] Verona Corral Other [employer] Other Encounters Encounter Date Encounter Type Care Provider Facility Start: 08-27-2023 End: 08-27-2023 ambulatory Verona Corral Other [employer] Other Start: 08-27-2023 Telephone encounter Verona Corral [facility] Start: 08-05-2023 End: 08-05-2023 ambulatory Verona Corral Other [employer] Other Start: 08-05-2023 Telephone encounter Verona Corral [facility] Start: 08-04-2023 End: 08-04-2023 ambulatory Verona Corral Other [employer] Other Start: 08-04-2023 Encounter for genera l adult medical examination without abnormal findings Verona Corral [facility] Start: 08-04-2023 Office outpatient vi sit 15 minutes Verona Corral [facility] Start: 03-25-2023 End: 03-25-2023 ambulatory Verona Corral Other [employer] Other Start: 03-25-2023 Telephone encounter Verona Corral [facility] Start: 12-04-2022 Patient encounter procedure Verona Corral Work Phone: [facility] Work Phone: Start: 12-04-2022 ambulatory Ritaward Armenta Facility:[id number] Start: 11-06-2022 Office consultation new/estab patient 60 min Verona Corral Work Phone: [facility] DO Work Phone: Start: 11-06-[address] Verona Corral Facility: Start: 10-29-2022 End: 10-29-2022 ambulatory Verona Corral Other [employer] Other Start: 10-29-2022 Telephone encounter Verona Corral [facility] Start: 10-24-2022 End: 10-25-[address] VERONA CORRAL Facility:[facility] Start: 10-20-2022 End: 10-20-2022 ambulatory Verona Corral Other [employer] Other Start: 10-20-2022 Encounter by marco Corral [facility] Start: 10-17-2022 End: 10-17-2022 ambulatory Verona Corral Other [employer] Other Start: 10-17-2022 Office outpatient vi sit 15 minutes Verona Corral [facility] Start: 10-11-2022 End: 10-12-[address] LORNE MIGUEL . Facility:[facility] Start: 10-10-2022 End: 10-10-2022 ambulatory Verona Corral Other [employer] Other Start: 10-10-2022 Office outpatient vi sit 15 minutes Verona Corral [facility] Start: 09-24-2022 End: 09-24-2022 ambulatory Verona Corral Other [employer] Other Start: 09-24-2022 Telephone encounter Verona Corral [facility] Start: 09-19-2022 Encounter for genera l adult medical examination with abnormal findings DR VERONA CORRAL [facility] Start: 09-12-2022 End: 09-13-2022 Encounter for general adult medical examination with abnormal findings DR VERONA CORRAL Facility:[facility] Start: 09-12-2022 Office outpatient vi sit 15 minutes Verona Corral [facility] Start: 09-12-2022 End: 09-13-[address] VERONA CORRAL Facility:[facility] Start: 10-15-2021 Gynecological examination normal Verona Corral Other [employer] Other Start: 08-19-2021 Adult health examination Faye Corral Other [employer] Other Procedures Date Procedure Procedure Detail Performing Clinician Start: 05-17-2018 General examination of patient Verona Nakia Other Start: 05-17-2018 Screening for malign ant neoplasm of colon Verona Corral Other Start: 05-17-2018 Screening mammography Radha Corral Other Appendectomy Verona Corral Work Phone: Cataract surgery Verona jarrett Work Phone: Operative procedure on foot Verona Corral Work Phone: Operative procedure on knee Verona Corral Work Phone: Screening for malign ant neoplasm of breast [facility] Corral Other Plan of Treatment Date Care Activity Detail Author Start: 03-12-2023 FUV, Provider: Rita Armenta, Status: Pen, Time: 2:30 PM FUV, Provider: Rita Armenta, Status: Pen, Time: 2:[address] [facility] DO Work Phone: Start: 12-04-2022 STRESS NUC, Provider : BHAVANI [facility] NUCLEAR 01,[id number], Status: Pen, Time: 12:00 PM STRESS NUC, Provider: BHAVANI [facility] NUCLEAR 01,[id number], Status: Pen, Time: 12:[address] [facility] DO Work Phone: Payers Date Payer Category Payer Unknown [id number] 2.16.84 [id number] 1965 Unknown [id number] [id number] [id number] 1965 Unknown [id number] 2.16.84 [id number] 1965 Unknown [id number] 1965 Unknown [id number] [facility] [id number] Unknown ANTHEM Social History Date Type Detail Facility Unknown if ever smoked [employer] Other Sex Assigned At Sex Assigned At Bir th [employer] Other Caffeine use Caffeine use [facility] DO Work Phone: Clinical Notes 03-09-2022 to 08-04-2023 Note Date & Type Note Facility 08-04-2023 Evaluation note Encounter Date Diagnosis Assessment Notes Jul, Wellness examination (ICD-10 - Z00.00) pt requests wellness labs - today was not a wellness exam Jul, Screening mammogram, encounter for (ICD-10 - Z12.31) Jul, Menopause (ICD-10 - Z78.0) due for DEXA Jul, Obesity, unspecified (ICD-10 - E66.9) The patient will begin Ozempic to help with both glycemic control and satiety. The risks, benefits and side effects were discussed; including but not limited to the risk of nausea, diarrhea and headache. The risk of hypoglycemia was particularly in conjunction with other diabetes medications and dose adjustments were discussed. The patient was also counseled on the risk of pancreatitis. Patient was counseled on the risk of medullary thyroid cancer seen in rat models. The patient denies any previous history of pancreatitis, pancreatic cancer, chronic kidney disease or personal or family history of medullary thyroid cancer or MEN syndrome. The patient was counseled on the potential worsening of diabetic retinopathy and watch closely for any visual changes and monitor patient closely with diabetic conservation specialist. -Begin 0.25 Ozempic every week. The patient will stop the Ozempic any significant nausea, vomiting, abdominal pain or other side effects. Jul, Body mass index [BMI] 31.0-31.9, adult (ICD-10 - Z68.31) [employer] Other 02-17-2023 Evaluation note* Encounter Date Diagnosis Assessment Notes Treatment Notes Treatment Clinical Notes Oct, Palpitations (ICD-10 - R00.2) Echo needs completed. Will forward that, this OV and the discharge summary to [facility]. Lorena understands logically to stop adipex. Of note, she was considering med for ADD in the furture. This SVT would force our decision to avoid stimulants in the future. Oct, SVT (supraventricular tachycardia) (ICD-10 - I47.1) [employer] Other 02-10-2023 Evaluation note* Encounter Date Diagnosis Assessment Notes Treatment Notes Treatment Clinical Notes Oct, Overweight (ICD-10 - E66.3) Followup in 30 days. Monitor for adverse side effects Oct, Body mass index [BMI] 29.0-29.9, adult (ICD-10 - Z68.29) Oct, Anxiety (ICD-10 - F41.9) chronic issue. renewed meds. symptoms stable [employer] Other 01-13-2023 Evaluation note* Encounter Date Diagnosis Assessment Notes Treatment Notes Treatment Clinical Notes Aug, Abnormal wellness exam (ICD-10 - Z00.01) Due for wellness labs, today was a checkup. Aug, BMI 30.0-30.9,adult (ICD-10 - Z68.30) Patient has clearly made a good quintin effort for several months on her own to lose weight with little success. Pt to start Adipex daily. Medication is a stimulant. May cause you to be jittery or constipated. Take in the morning, may also take stool softener daily as needed. Continue to eat a healthy well balanced diet and continue work-out regimine. Pt aware that this is not a cure for obesity but a tool used to help them during their weight loss plateau. Pt aware that they need to continue to work hard at weight loss or the weight will be regained. Side effects discussed and understood. Pt education printed and discussed. Pt notified of prescribing schedule with 30 day dispensing, no refills, for up to 12 weeks, with a 6 month break in-between treatments. Id SOB, CP, mood changes, tachycardia, HTN, headaches, blurred vision occur, go to ER . obese [employer] Other 03-12-2022 History of Present illness Narrative* Patient is new to this provider. She is accompanied by her to the office. 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 * Her palpitations were very infrequent but over the last year or so they are becoming more frequent.Sometimes they last a few minutes sometimes they last longer. She describes them as a sudden sensation of heart jumping racing, trying to get out of her chest almost, and when it last for several minutes it is associated with lightheadedness presyncope diaphoresis pallor, and chest discomfort. Sometimes she tries vagal maneuvers and it breaks the palpitations. * She has on and off being on Adipex, losing 10 pounds each time she is on the medication. This is supervised by physician. Of late, because of the palpitations and her tachycardia, she is no longer using Adipex. * She rarely uses caffeinated beverages. * She has no known drug allergies she is never a smoker, she does not have a history of hypertension diabetes, no history of coronary artery disease. 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 * She tells me that she is very hesitant to take any medications. * She does not give history of symptoms suggestive of obstructive sleep apnea. * She has never had a treadmill stress test. Reviewed her echocardiogram report. Her LV function is preserved and she does not have any significant valvular heart disease. * Reviewed records from [facility] dated 10/12/2022. * Dr. Negron's office notes were also reviewed. * Laboratory data from 10/12/2022 show hematocrit of 35 hemoglobin 11.4 platelets 150 sodium 144 potassium 4 GFR greater than 60 albumin 2.8. TSH was normal * Assessment: * 1. 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 * 2. Echocardiogram 10/24/2022-normal chamber dimensions grossly normal valves no pericardial effusionLVEF 55 to 60% normal diastolic function mild tricuspid regurgitation left atrial volume index was reported to be? 60 mL?? RV systolic pressure was reported to be about 25 to 30 mmHg. * 3. Carotid ultrasound 10/12/2022-normal examination * 4. Patient is on methotrexate for? Psoriasis * Recommendations: * 1. Extensive discussion about reentrant tachycardia. She has tried vagal maneuvers at times with success. However there has been an increase in the frequency and duration of her symptoms, at this point I am not sure whether this is related to add Effexor count, but the decision has been made to hold off on Adipex. I told her that if she would like to try medications for weight loss she should talk to her primary physician about agents such as Rybelsus or Mounjaro. * 2. Magnesium oxide 400 mg p.o. twice daily * 3. Talked about electrophysiology consultation, I said I would arrange, with goal to discuss ablation of SVT, patient is not keen on proceeding with invasive therapy at this time * 4. Talked about medical therapy, and became to the consensus that since the episodes are unpredictable and infrequent, rather than keep her on a regular medical regiment, we will give her a prescription for pill in the pocket approach, she will take metoprolol tartrate 50 mg and flecainide 200 mg for palpitations that last more than 5 to 10 minutes or if those are associated with additional symptoms like chest discomfort lightheadedness presyncope or syncope. If her tachycardia does not break, she understands that she needs emergent medical attention. * 5. She will need a treadmill stress test, at her convenience this can be arranged. We can discuss the results of her treadmill stress test over the telephone. The fact that she had a negative troponin after being tachycardic at 200 for more than 15 minutes speaks against a limiting coronary artery d isease. * 6. Follow-up in 4 months sooner if interval problems arise * Thank you Dr. Corral for allowing me to participate in Lorena's care, please do not hesitate to call if further questions arise, * Sincerely, * Rita Armenta MD [facility] DO Work Phone: [phone] History of Present illness Narrative* Patient is new to this provider. She is accompanied by her to the office. 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 * Her palpitations were very infrequent but over the last year or so they are becoming more frequent.Sometimes they last a few minutes sometimes they last longer. She describes them as a sudden sensation of heart jumping racing, trying to get out of her chest almost, and when it last for several minutes it is associated with lightheadedness presyncope diaphoresis pallor, and chest discomfort. Sometimes she tries vagal maneuvers and it breaks the palpitations. * She has on and off being on Adipex, losing 10 pounds each time she is on the medication. This is supervised by physician. Of late, because of the palpitations and her tachycardia, she is no longer using Adipex. * She rarely uses caffeinated beverages. * She has no known drug allergies she is never a smoker, she does not have a history of hypertension diabetes, no history of coronary artery disease. 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 * She tells me that she is very hesitant to take any medications. * She does not give history of symptoms suggestive of obstructive sleep apnea. * She has never had a treadmill stress test. Reviewed her echocardiogram report. Her LV function is preserved and she does not have any significant valvular heart disease. * Reviewed records from [facility] dated 10/12/2022. * Dr. Negron's office notes were also reviewed. * Laboratory data from 10/12/2022 show hematocrit of 35 hemoglobin 11.4 platelets 150 sodium 144 potassium 4 GFR greater than 60 albumin 2.8. TSH was normal * Assessment: * 1. 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 * 2. Echocardiogram 10/24/2022-normal chamber dimensions grossly normal valves no pericardial effusionLVEF 55 to 60% normal diastolic function mild tricuspid regurgitation left atrial volume index was reported to be? 60 mL?? RV systolic pressure was reported to be about 25 to 30 mmHg. * 3. Carotid ultrasound 10/12/2022-normal examination * 4. Patient is on methotrexate for? Psoriasis * Recommendations: * 1. Extensive discussion about reentrant tachycardia. She has tried vagal maneuvers at times with success. However there has been an increase in the frequency and duration of her symptoms, at this point I am not sure whether this is related to add Effexor count, but the decision has been made to hold off on Adipex. I told her that if she would like to try medications for weight loss she should talk to her primary physician about agents such as Rybelsus or Mounjaro. * 2. Magnesium oxide 400 mg p.o. twice daily * 3. Talked about electrophysiology consultation, I said I would arrange, with goal to discuss ablation of SVT, patient is not keen on proceeding with invasive therapy at this time * 4. Talked about medical therapy, and became to the consensus that since the episodes are unpredictable and infrequent, rather than keep her on a regular medical regiment, we will give her a prescription for pill in the pocket approach, she will take metoprolol tartrate 50 mg and flecainide 200 mg for palpitations that last more than 5 to 10 minutes or if those are associated with additional symptoms like chest discomfort lightheadedness presyncope or syncope. If her tachycardia does not break, she understands that she needs emergent medical attention. * 5. She will need a treadmill stress test, at her convenience this can be arranged. We can discuss the results of her treadmill stress test over the telephone. The fact that she had a negative troponin after being tachycardic at 200 for more than 15 minutes speaks against a limiting coronary artery d isease. * 6. Follow-up in 4 months sooner if interval problems arise * Thank you Dr. Corral for allowing me to participate in Lorena's care, please do not hesitate to call if further questions arise, * Sincerely, * Rita Armenta MD [facility] [employer] DO Work Phone: Chief complaint Narrative - Reported* LORENA ALMEIDA is being seen for a cardiovascular evaluation. * [facility] ALMEIDA [facility] being [facility]T. [facility] Work Phone: Chief complaint Narrative - Reported* LORENA ALMEIDA is being seen for a cardiovascular evaluation. * LORENA ALMEIDA is being seen for SVT. [facility] 250 DO Work Phone: Evaluation noteNo InformationNort [employer] Other History general Narrative - Reported* Type Description Date Medical History Psoriasis Medical History Anxiety Medical History Depression Surgical History appendectomy Surgical History cataract 2011, 2013 Hospitalization History childbirths Hospitalization History see above [employer] Other History general Narrative - Reported* Type Description Date Medical History Psoriasis Medical History Anxiety Medical History Depression Medical History Basel cell carcinoma Medical History V tach Surgical History appendectomy Surgical History cataract 2011, 2013 Surgical History Basel cell removal forehead 08/03/23 Hospitalization History childbirths Hospitalization History see above [employer] Other Summary Purpose Family History Unknown Family Member Name Dates Details Family history of malignant neoplasm: Mother(V16.9, Z80.9) Status:Active Family history of atrial fib rillation: Mother(V17.49, Z82.49) Status:Active Family history of hypertensi on: Father(V17.49, Z82.49) Status:Active Heart problem: Father, Siste r Status:Active Unknown Family Member Name Dates Details Heart problem: Father, Siste r Status:Active Family history of hypertensi on: Father(V17.49, Z82.49) Status:Active Family history of atrial fib rillation: Mother(V17.49, Z82.49) Status:Active Family history of malignant neoplasm: Mother(V16.9, Z80.9) Status:Active Unknown Family Member Name Dates Details Family history of malignant neoplasm: Mother(V16.9, Z80.9) Status:Active Family history of atrial fib rillation: Mother(V17.49, Z82.49) Status:Active Family history of hypertensi on: Father(V17.49, Z82.49) Status:Active Heart problem: Father, Siste r Status:Active Advance Directives No Advanced Directives Records FoundNo Advanced Directives Records FoundNo Advanced Directives Records FoundNo Advanced Directives Records Found Additional Source Comments REASON FOR VISIT (unrecogniz ed section and content) labswants to discuss AdipexA DIPEX CHECK UPTBHCancel Appointment RequestechorefilllabsWeightlossNo Information INFORMATION SOURCE (unrecogn ized section and content) DATE CREATED AUTHOR 10/31/2022 [facility] DATE CREATED AUTHOR AUTHOR'S ORGANIZ ATION 11/08/2022 [facility] DATE CREATED AUTHOR AUTHOR'S ORGANIZ ATION 11/08/2022 [employer] DATE CREATED AUTHOR AUTHOR'S ORGANIZ ATION 12/07/2022 [facility] FOR RECORDS PERTAINING TO PATIENTS WHO ARE OR HAVE BEEN ENROLLED IN A CHEMICAL DEPENDENCY/SUBSTANCEABUSE PROGRAM, SOME INFORMATION MAY BE OMITTED. This clinical summary was aggregated from multiple sources. Caution should be exercised in using it in the provision of clinical care. This summary normalizes information from multiple sources, and as a consequence, information in this document may materially change the coding, format and clinical context of patient data. In addition, data may be omitted in some cases. CLINICAL DECISIONS SHOULD BE BASED ON THE PRIMARY CLINICAL RECORDS. [employer] [facility]. provides no warranty or guarantee of the accuracy or completeness of information in this document.
--- NOTE | 2023-09-01 19:17 | ED.GENADUL1 ---
Documented by User: Faith Shelley 09/01/23 22:01 HPI - General Adult General Chief complaint: Weakness Stated complaint: Possible Allergic Reaction, All over Body Pain Time Seen by Provider: 09/01/23 19:10 Source: patient Mode of arrival: Wheelchair Limitations: no limitations History of Present Illness HPI narrative: 58 year old female presents to the ED for generalized pain. Onset was this morning. It has been getting progressively worse. Also reports diarrhea. She started taking Boniva yesterday and is concerned her sx are side effects of the medication. Denies fever, chills, SOB, cough, difficulty swallowing. Denies N/V, abd pain, urinary sx. Denies concern for Covi-19 and influenza. States her pain is only with movement. States it is muscle pain not joint pain. Rates her pain 10/10. She is accompanied by family. Related Data Allergies Allergy/AdvReac Type Severity Reaction Status Date / Time No Known Drug Allergies Allergy Verified 09/01/23 18:39 Review of Systems ROS Constitutional Denies: fever, chills or fatigue Ears, nose, mouth, and throat Denies: throat pain, neck pain, throat swelling or difficulty swallowing Cardiovascular Reports: chest pain; Denies: lightheadedness Respiratory Denies: shortness of breath or cough Gastrointestinal Reports: diarrhea; Denies: abdominal pain, nausea or vomiting Musculoskeletal Reports: back pain, neck pain, extremity pain and muscle cramps; Denies: joint pain or joint swelling Integumentary/Breast Reports: redness; Denies: rash or itching Neurological Denies: headache, numbness in extremities, weakness in extremities, lack of coordination or dizziness Exam Constitutional Vital Signs, click to edit/add: Last Vital Signs Temp 98.9 F 09/01/23 18:39 Pulse 83 09/01/23 22:10 Resp 18 09/01/23 18:39 BP 121/78 09/01/23 22:00 Pulse Ox 94 L 09/01/23 22:10 Common normals: no apparent distress and oriented x3 General appearance: cooperative Other: Chest, upper back, and cheeks appear flushed. HENMT Common normals: normocephalic Nose: external nose normal Mouth: oral and palatal mucosa normal, lip normal and tongue normal Eye Common normals: conjunctivae normal and no scleral icterus Chest Chest: symmetrical chest wall rise Respiratory Common normals: normal respiratory effort and no use of accessory muscles Effort & inspection: symmetric chest movement Auscultation: clear to auscultation bilaterally GI Common normals: Normal to inspection, nondistended, normoactive bowel sounds present, soft to palpation and non-tender Neuro Common normals: oriented x3 Sensorium/orientation: awake and alert Speech: speech normal Course Vital Signs Vital signs: Vital Signs Temperature 98.9 F 09/01/23 18:39 Pulse Rate 112 H 09/01/23 18:39 Respiratory Rate 18 09/01/23 18:39 Blood Pressure 162/86 H 09/01/23 18:39 Pulse Oximetry 98 09/01/23 18:39 Temperature 98.9 F 09/01/23 18:39 Pulse Rate 83 09/01/23 22:10 Respiratory Rate 18 09/01/23 18:39 Blood Pressure 121/78 09/01/23 22:00 Pulse Oximetry 94 L 09/01/23 22:10 Medical Decision Making MDM Narrative Medical decision making narrative: She was medicated with morphine, Zofran, IV fluids with some improvement. Laboratory studies including CBC, CMP, CK, myoglobin, and troponin were unremarkable. She was then medicated with Norflex and Toradol. Chest x-ray showed no acute findings. Care was resumed to Dr. Joya. See her dictation for further evaluation and treatment. Medical Records Medical records reviewed: Yes I reviewed the patient's medical records Lab Data Lab results reviewed: Yes I reviewed the patient's lab results Labs: Lab Results 09/01/23 Range/Units 19:40 WBC 12.3 H (4.0-11.0) 10^3/uL RBC 4.23 (4.20-5.40) 10^6/uL Hgb 12.6 (12.0-16.0) g/dL Hct 40.2 (36.0-48.0) % MCV 95.0 (81.0-99.0) fL MCH 29.8 (26.7-34.0) pg MCHC 31.3 (29.9-35.2) g/dL RDW 12.2 (11.0-15.0) % Plt Count 205 (150-450) 10^3/uL MPV 10.6 (9.5-13.5) fL Neut % (Auto) 87.8 H (43.0-75.0) % Lymph % (Auto) 7.5 L (20.5-60.0) % [place] % (Auto) 4.0 (1.7-12.0) % Eos % (Auto) 0.2 L (0.9-7.0) % Baso % (Auto) 0.2 (0.2-2.0) % Neut # (Auto) 10.8 H (1.4-6.5) 10^3/uL Lymph # (Auto) 0.9 L (1.2-3.8) 10^3/uL [place] # (Auto) 0.5 (0.3-0.8) 10^3/uL Eos # (Auto) 0.0 (0.0-0.7) 10^3/uL Baso # (Auto) 0.0 (0.0-0.1) 10^3/uL Abs Immat Gran (auto) 0.04 H (0.00-0.03) 10^3/uL Imm/Tot Granulo (auto) 0.3 (0.0-0.5) % Sodium 138 (136-145) mmol/L Potassium 4.5 (3.5-5.1) mmol/L Chloride 104 (98-107) mmol/L Carbon Dioxide 27.0 (21.0-32.0) mmol/L Anion Gap 11.5 BUN 16.0 (7.0-18.0) mg/dL Creatinine 0.83 (0.55-1.02) mg/dL Est GFR ( Amer) >60 (>=60) Est GFR (Non-Af Amer) >60 (>=60) BUN/Creatinine Ratio 19.3 Glucose 104 (74-106) mg/dL Calcium 8.9 (8.5-10.1) mg/dL Magnesium 2.0 (1.8-2.4) mg/dL Total Bilirubin 0.3 (0.2-1.0) mg/dL AST 18 (15-37) U/L ALT 25 (14-59) U/L Alkaline Phosphatase 102 (46-116) U/L Total Creatine Kinase 74 (26-192) U/L CK-MB (CK-2) <0.50 (<=3.60) ng/mL Myoglobin 39 (9-82) ng/mL Troponin I High Sens <4.0 L (4.0-51.3) pg/mL Total Protein 7.1 (6.4-8.2) g/dL Albumin 3.2 L (3.4-5.0) g/dL Globulin 3.9 g/dL Albumin/Globulin Ratio 0.8 Imaging Data Chest x-ray: Attestation: I have reviewed the pertinent imaging results. Radiologist's impression: Procedure: XR chest 1V EXAMINATION: XR chest 1V, , 09/01/2023 8:00 PM EST INDICATION: Chest tightness HISTORY: Ordering Provider Reason for Exam: Chest tightness Technologist Note: Additional: COMPARISON: Chest x-ray dated 10/11/2022. TECHNIQUE: Chest x-ray: One view. FINDINGS: No pneumothorax, pleural effusion or focal airspace consolidation. Heart is normal in size. Bony thorax is unremarkable. XR/XR chest 1V IMPRESSION: No acute cardiopulmonary process. Electronically authenticated by: KIKI MONTIEL Date: 09/01/2023 20:37 ECG Data Attestation: ?I have reviewed the pertinent ECG results. (EKG showed sinus tachycardia at a rate of 126 bpm with no acute ST segment changes. ) Interpretation: Measurements Intervals [place] Rate: 126 P: 69 [place]: 170 QRS: 71 QRSD: 78 T: 23 QT: 288 QTc: 363 Interpretive Statements 1120 Sinus tachycardia 3433 Septal myocardial infarction, probably old 9150 abnormal ECG No previous ECG available for comparison Discharge Plan Discharge Chief Complaint: Weakness Clinical Impression: Medication side effects, Diarrhea, Body aches Patient Disposition: Home, Self-Care Time of Disposition Decision: 22:30 Condition: Good Instructions: Acute Diarrhea (ED), Adverse Drug Reaction (ED) Stand Alone Forms: Portal Instructions Referrals: Verona Corral MD [Primary Care Provider] - 1 week Documented by User: Zulema Joya MD 09/01/23 22:32 HPI - General Adult General Chief complaint: Weakness Stated complaint: Possible Allergic Reaction, All over Body Pain Time Seen by Provider: 09/01/23 19:10 Related Data Allergies Allergy/AdvReac Type Severity Reaction Status Date / Time No Known Drug Allergies Allergy Verified 09/01/23 18:39 Exam Constitutional Vital Signs, click to edit/add: Last Vital Signs Temp 98.9 F 09/01/23 18:39 Pulse 83 09/01/23 22:10 Resp 18 09/01/23 18:39 BP 121/78 09/01/23 22:00 Pulse Ox 94 L 09/01/23 22:10 Course Vital Signs Vital signs: Vital Signs Temperature 98.9 F 09/01/23 18:39 Pulse Rate 112 H 09/01/23 18:39 Respiratory Rate 18 09/01/23 18:39 Blood Pressure 162/86 H 09/01/23 18:39 Pulse Oximetry 98 09/01/23 18:39 Temperature 98.9 F 09/01/23 18:39 Pulse Rate 83 09/01/23 22:10 Respiratory Rate 18 09/01/23 18:39 Blood Pressure 121/78 09/01/23 22:00 Pulse Oximetry 94 L 09/01/23 22:10 Medical Decision Making MDM Narrative Medical decision making narrative: She was medicated with morphine, Zofran, IV fluids with some improvement. Laboratory studies including CBC, CMP, CK, myoglobin, and troponin were unremarkable. She was then medicated with Norflex and Toradol. Chest x-ray showed no acute findings. Care was resumed to Dr. Joya. See her dictation for further evaluation and treatment. This patient was seen and evaluated in conjunction with the nurse practitioner. Please refer to her full H and P. In brief she took an injection of both earlier today and started having side effects including body aches, headache, neck pain and diarrhea. She is medicated in emergency department with clinical improvement. This evening labs are reviewed and are essentially normal. Reevaluation the patient states she can now move her head from side to side without muscle spasms or pain. She denies any for any additional medication in emergency department. I instructed her to refrain from using this medication again until she speaks with her family physician. Lab Data Labs: Lab Results 09/01/23 Range/Units 19:40 WBC 12.3 H (4.0-11.0) 10^3/uL RBC 4.23 (4.20-5.40) 10^6/uL Hgb 12.6 (12.0-16.0) g/dL Hct 40.2 (36.0-48.0) % MCV 95.0 (81.0-99.0) fL MCH 29.8 (26.7-34.0) pg MCHC 31.3 (29.9-35.2) g/dL RDW 12.2 (11.0-15.0) % Plt Count 205 (150-450) 10^3/uL MPV 10.6 (9.5-13.5) fL Neut % (Auto) 87.8 H (43.0-75.0) % Lymph % (Auto) 7.5 L (20.5-60.0) % [place] % (Auto) 4.0 (1.7-12.0) % Eos % (Auto) 0.2 L (0.9-7.0) % Baso % (Auto) 0.2 (0.2-2.0) % Neut # (Auto) 10.8 H (1.4-6.5) 10^3/uL Lymph # (Auto) 0.9 L (1.2-3.8) 10^3/uL [place] # (Auto) 0.5 (0.3-0.8) 10^3/uL Eos # (Auto) 0.0 (0.0-0.7) 10^3/uL Baso # (Auto) 0.0 (0.0-0.1) 10^3/uL Abs Immat Gran (auto) 0.04 H (0.00-0.03) 10^3/uL Imm/Tot Granulo (auto) 0.3 (0.0-0.5) % Sodium 138 (136-145) mmol/L Potassium 4.5 (3.5-5.1) mmol/L Chloride 104 (98-107) mmol/L Carbon Dioxide 27.0 (21.0-32.0) mmol/L Anion Gap 11.5 BUN 16.0 (7.0-18.0) mg/dL Creatinine 0.83 (0.55-1.02) mg/dL Est GFR ( Amer) >60 (>=60) Est GFR (Non-Af Amer) >60 (>=60) BUN/Creatinine Ratio 19.3 Glucose 104 (74-106) mg/dL Calcium 8.9 (8.5-10.1) mg/dL Magnesium 2.0 (1.8-2.4) mg/dL Total Bilirubin 0.3 (0.2-1.0) mg/dL AST 18 (15-37) U/L ALT 25 (14-59) U/L Alkaline Phosphatase 102 (46-116) U/L Total Creatine Kinase 74 (26-192) U/L CK-MB (CK-2) <0.50 (<=3.60) ng/mL Myoglobin 39 (9-82) ng/mL Troponin I High Sens <4.0 L (4.0-51.3) pg/mL Total Protein 7.1 (6.4-8.2) g/dL Albumin 3.2 L (3.4-5.0) g/dL Globulin 3.9 g/dL Albumin/Globulin Ratio 0.8 Discharge Plan Discharge Chief Complaint: Weakness Clinical Impression: Medication side effects, Diarrhea, Body aches Patient Disposition: Home, Self-Care Time of Disposition Decision: 22:30 Condition: Good Instructions: Acute Diarrhea (ED), Adverse Drug Reaction (ED) Stand Alone Forms: Portal Instructions Referrals: Verona Corral MD [Primary Care Provider] - 1 week
[2023-09-01 19:56] LABS: Basophils Percent Auto 0.2 % (0.2-2.0); Eosinophils Percent Auto 0.2 % (0.9-7.0); Hematocrit 40.2 % (36.0-48.0); Hemoglobin 12.6 g/dL (12.0-16.0); Immature Granulocytes Abs Auto 0.04 10^3/uL (0.00-0.03); Immature Granulocytes Pct Auto 0.3 % (0.0-0.5); Lymphocytes Absolute Auto 0.9 10^3/uL (1.2-3.8); Lymphocytes Percent Auto 7.5 % (20.5-60.0); Mean Corpuscular HGB Conc 31.3 g/dL (29.9-35.2); Mean Corpuscular Hemoglobin 29.8 pg (26.7-34.0); Mean Platelet Volume 10.6 fL (9.5-13.5); Monocytes Absolute Auto 0.5 10^3/uL (0.3-0.8); Neutrophils Absolute Auto 10.8 10^3/uL (1.4-6.5); Neutrophils Percent Auto 87.8 % (43.0-75.0); Platelet Count 205 10^3/uL (150-450); Red Blood Count 4.23 10^6/uL (4.20-5.40); Red Cell Distribution Width 12.2 % (11.0-15.0); White Blood Count 12.3 10^3/uL (4.0-11.0)
[2023-09-01] MEDS: 0.9 % SODIUM CHLORIDE 1,000 ML 999 ML IV (20:02)
[2023-09-01] MEDS: ONDANSETRON PF 4 MG/2 ML VIAL IV (20:03)
[2023-09-01] MEDS: MORPHINE SULFATE 2 MG/ML SYRINGE IV (20:03)
[2023-09-01 20:20] LABS: Alanine Aminotransferase 25 U/L (14-59); Albumin Globulin Ratio 0.8; Albumin Level 3.2 g/dL (3.4-5.0); Alkaline Phosphatase 102 U/L (46-116); Anion Gap 11.5; Aspartate Amino Transferase 18 U/L (15-37); BUN Creatinine Ratio 19.3; Bilirubin Total 0.3 mg/dL (0.2-1.0); Calcium 8.9 mg/dL (8.5-10.1); Chloride 104 mmol/L (98-107); Estimated GFR (African America >60 (>=60); Estimated GFR (Non-African Ame >60 (>=60); Globulin 3.9 g/dL; Glucose 104 mg/dL (74-106); Potassium 4.5 mmol/L (3.5-5.1); Sodium 138 mmol/L (136-145); Total Protein 7.1 g/dL (6.4-8.2)
[2023-09-01 20:24] LABS: Creatine Kinase 74 U/L (26-192); Creatine Kinase MB <0.50 ng/mL (<=3.60); Myoglobin 39 ng/mL (9-82); Troponin I High Sensitivity <4.0 pg/mL (4.0-51.3)
[2023-09-01] MEDS: ORPHENADRINE 60 MG/ 2 ML VIAL IV (21:19)
[2023-09-01] MEDS: KETOROLAC TROMETHAMINE 30 MG/ML VIAL 15 MG IVP (21:19)
== END 2023-09-01 22:49 | disposition home or self-care (01) ==
PROVIDERS: Nurse Practitioner Family; Emergency Provider Emergency Medicine; PCP Family Medicine
DX: R52 Pain, unspecified (principal); R19.7 Diarrhea, unspecified; T45.8X5A Adverse effect of other primarily systemic and hematological agents, initial encounter
CPT/HCPCS: 36415; 71045; 80053; 82550; 82553; 83735; 83874; 84484; 85025; 93005; 96361; 96374; 96375; 99285; J1885; J2270; J2360; J2405

== ENCOUNTER 2024-01-08 14:01 | Outpatient (OUT) | payer BC, SELFPAY ==
[2024-01-08 15:49] LABS: Free T4 0.87 ng/dL (0.76-1.46)
[2024-01-08 15:54] LABS: Alanine Aminotransferase 19 U/L (14-59); Albumin Level 3.4 g/dL (3.4-5.0); Alkaline Phosphatase 86 U/L (46-116); Anion Gap 9.7; Aspartate Amino Transferase 13 U/L (15-37); Bilirubin Total 0.4 mg/dL (0.2-1.0); Calcium 8.8 mg/dL (8.5-10.1); Carbon Dioxide 29.3 mmol/L (21.0-32.0); Chloride 106 mmol/L (98-107); Estimated GFR (African America >60 (>=60); Estimated GFR (Non-African Ame >60 (>=60); Globulin 3.5 g/dL; Glucose 81 mg/dL (74-106); Sodium 141 mmol/L (136-145); Total Protein 6.9 g/dL (6.4-8.2)
== END 2024-01-08 14:02 | disposition home or self-care (01) ==
LOC: LAB 14:04
PROVIDERS: PCP Family Medicine
DX: R00.2 Palpitations (principal); Z86.79 Personal history of other diseases of the circulatory system; R00.1 Bradycardia, unspecified; I48.3 Typical atrial flutter; R42 Dizziness and giddiness
CPT/HCPCS: 36415; 80053; 84439; 84443

== ENCOUNTER 2024-08-25 09:28 | Outpatient (OUT) | payer BC, SELFPAY ==
--- OUTSIDE RECORDS SUMMARY | 2024-08-25 09:35 | XMS_ITS | CCD ---
Author Organization [facility] Care Team Providers Care Costume Designer Name Role Phone Verona Yee Unavailable MYRIAM ., DR LORNE Gomez Attending Unavailable MIGUEL ., DR LORNE Gomez Consulting Unavailable MIGUEL ., DR LORNE Gomez Admitting Unavailable NAKIA, DR VERONA Gomez Primary Care Unavailable PIKETON, DR SHAUNA Tapia Consulting Unavailable MURILLO, WINCHA Consulting Unavailable DIAB, CHRISTOPHER Consulting Unavailable NAKIA, DR VERONA Gomez Attending Unavailable NAKIA, DR VERONA Gomez Consulting Unavailable NAKIA, DR VERONA Gomez Primary Care Unavailable NAKIA, DR VERONA Gomez Admitting Unavailable NAKIA, DR VERONA Gomez Attending Unavailable YEE, DR VERONA Gomez Consulting Unavailable YEE, DR VERONA Gomez Primary Care Unavailable YEE, DR VERONA Gomez Admitting Unavailable Verona Yee Unavailable Unavailable Unavailable Dr. Verona Yee Primary Care Unav MD RITA Flores Attending Unavailable MD RITA ROCHA Referring Unavailable Rita Rocha Attending Unavailable Dr. Verona Yee Primary Care Unav Verona Mobley MD Primary Care Provider Rita Rocha MD Unavailable Verona Yee MD Primary Care Provider Rita Rocha MD Unavailable JAMIN DISLA Admitting Unavailable JAMIN DISLA Attending Unavailable VERONA YEE Primary Care Unavailable RITA ROCHA Referring Unavailable RITA ROCHA Referring Unavailable VERONA YEE Primary Care Unavailable JAMIN DISLA Attending Unavailable RITA ROCHA Referring Unavailable VERONA YEE Primary Care Unavailable JAMIN DISLA Attending Unavailable VERONA YEE Primary Care Unavailable JAMIN DISLA Referring Unavailable RITA ROCHA Attending Unavailable VERONA YEE Primary Care Unavailable RITA ROCHA Referring Unavailable VERONA YEE Primary Care Unavailable RITA ROCHA Attending Unavailable VERONA YEE Primary Care Unavailable RITA ROCHA Attending Unavailable VERONA YEE Primary Care Unavailable RITA ROCHA Attending Unavailable VERONA YEE Primary Care Unavailable RITA ROCHA Referring Unavailable Allergies Allergy Classification Reported Allergen(s) Allergy Type Date of Onset Reaction(s) Facility (8 sources) patient allergy list reviewed by nurse or physicia Propensity to adverse reactions 8 Comment:Done [facility] Other (8 sources) Allergies Reconciled Propensity to adverse reactions Unknown [facility] Other (5 sources) Ibandronate; Translations: [IBANDRONATE] Drug Allergy 4 weakness [facility] (6 sources) Ibandronate Drug Allergy 4 Myalgia [facility] (6 sources) Metoprolol; Translations: [METOPROLOL] Drug Allergy 4 Drowsiness [facility] Repository Medications Current Medications Medication Drug Class(es) Dates Sig (Normalized) Sig (Original) aspirin 81 mg delayed release oral tablet (7 sources) Platelet Aggregation Inhibitor, Nonsteroidal Anti-inflammatory Drug Start: 01-01-2024 End: 12-31-2024 take 1 tablet by mouth once daily aspirin 81 mg EC tablet Indications: Sinus tachycardia Take 1 tablet (81 mg) by mouth once daily. 01/01/2024 07/15/2024 Discontinued (Therapy completed) Cholecalciferol (1 source) Vitamin D take 1 capsule by mouth every week Cholecalciferol 1.25 MG (01245 UT) 1 capsule Orally weekly for 90 days Active clobetasol propionate 0.0005 mg/mg topical ointment (3 sources) Corticosteroid Start: 02-02-2024 clobetasol (Temovate) 0.05 % ointment Apply 1 Application topically 2 times a day. 02/02/2024 Active Start: 11-05-2023 Clobetasol Act kelley 1 APPLIC TOPICAL Daily November 05, 2023 1:00am Clobetasol Prop Oint-[place] Tar (3 sources) Clobetasol Prop Oint-[place] Tar Active dilTIAZem hydrochloride 30 mg oral tablet (1 source) Calcium Channel Afshan Start: End: take 1 tablet by mouth twice daily dilTIAZem (Cardizem) 30 mg immediate release tablet Indications: Palpitations , History of paroxysmal supraventricular tachycardia Take 1 tablet (30 mg) by mouth 2 times a day. 180 tablet 3 03/14/2024 03/14/2025 Active ibandronic acid 150 mg oral tablet (1 source) Bisphosphonate take 1 tablet by mouth once daily Ibandronate Sodium 150 MG 1 tablet 60 minutes before the first food, beverage or medicine of the day with plain water Orally for 90 days Active magnesium oxide 400 mg oral capsule (13 sources) Start: End: take 400 mg by mouth twice daily Magnesium Oxide Discontinued 400 MG PO Twice daily March 11, 2024 12:00am June 03, 2024 9:52am Start: 01-01-2024 End: 03-14-2025 take 1 capsule by mouth twice daily magnesium oxide 400 mg magnesium capsule Indications: Palpitations , History of paroxysmal supraventricular tachycardia , Sinus tachycardia , Dizziness , Sinus bradycardia Take 1 capsule (400 mg) by mouth 2 times a day. 180 capsule 3 03/14/2024 03/14/2025 Active Start: 01-01-2024 take 31-31.9 capsule s by mouth once daily magnesium oxide 400 mg magnesium capsule Indications: Sinus tachycardia , Family history of early CAD , Post-menopausal , Class 1 obesity with body mass index (BMI) of 31.0 to 31.9 in adult, unspecified obesity type, unspecified whether serious comorbidity present , Never smoked cigarettes , Palpitations , History of paroxysmal supraventricular tachycardia , Dizziness , Sinus bradycardia Take 1 capsule (400 mg) by mouth once daily. 90 capsule 3 01/01/2024 Active Start: 11-06-2022 take 1 tablet by gabriel th twice daily Magnesium Oxide 400 MG Oral Tablet TAKE 1 TABLET TWICE DAILY. Quantity: 180 Refills: 3 Ordered: 06-Nov-2022 Rita Rocha MD Start : 06-Nov-2022 Active new start ozempic (0.25 or 0.5 mg/dose ) 2 mg/3ml solution pen-injector (6 sources) Ozempic (0.25 or 0.5 MG/DOSE) 2 MG/3ML 0.25mg Subcutaneous weekly for 28 days Active Completed/Discontinued Medications Medication Drug Class(es) Dates Sig (Normalized) Sig (Original) azithromycin 250 mg oral tablet (2 sources) Macrolide Antimicrobial Start: 11-06-2023 End: 03-11-2024 Azithromycin Discontinued 250 MG PO daily 6 November 06, 2023 1:00am March 11, 2024 10:30am take 2 tablets today and then 1 tablet for the next 4 days clonazePAM 0.5 mg oral tablet (20 sources) Benzodiazepine Start: 10-10-2022 End: 03-11-2024 take 0.5 mg by mouth once daily Clonazepam Discontinued 0.5 MG PO Daily November 05, 2023 1:00am November 16, 2023 10:06am Start: 10-10-2022 clonazePAM 0.5 MG Oral Tablet Quantity: 90 Refills: 0 Ordered: 10-Oct-2022 DO Start : 10-Oct-2022 Active codeine phosphate 2 mg/ml / guaiFENesin 20 mg/ml oral solution (2 sources) Opioid Agonist Start: 11-06-2023 End: 02-10-2024 take 1 mL by mouth every six hours Codeine-Guaifenesin Discontinued 5 ML PO Every 6 hours 60 3 November 06, 2023 1:00am February 10, 2024 12:53pm flecainide acetate 100 mg oral tablet (5 sources) Antiarrhythmic Start: 11-06-2022 Flecainide Acetate 100 MG Oral Tablet Take 2 tablets as needed for SVT Quantity: 6 Refills: 0 Ordered: 06-Nov-2022 Rita Rocha MD Start : 06-Nov-2022 Active End: 01-04-2024 take 1 tablet by mouth once flecainide (Tambocor) 100 mg tablet Take 1 tablet (100 mg) by mouth 1 time if needed. 01/04/2024 Discontinued (Med List Cleanup) folic acid 0.8 mg oral capsule (19 sources) Start: 11-05-2023 End: 11-06-2023 take 0.8 mg by mouth once daily Folic Acid Discontinued 0.8 MG PO Daily November 05, 2023 1:00am November 06, 2023 10:17am take 1 capsule by mouth once aden ly Folic Acid 0.8 MG 1 capsule Orally Once a day Active take 1 tablet by mouth once terri y Folic Acid 1 MG Oral Tablet TAKE 1 TABLET DAILY. Quantity: 0 Refills: 0 Ordered: 06-Nov-2022 DO Active meloxicam 15 mg oral tablet (12 sources) Nonsteroidal Anti-inflammatory Drug Start: 07-16-2022 End: 11-06-2023 take 15 mg by mouth once daily Meloxicam Discontinued 15 MG PO Daily November 05, 2023 1:00am November 06, 2023 10:17am methotrexate 2.5 mg oral tablet (14 sources) Folate Analog Metabolic Inhibitor Start: 01-14-2022 take 6 tablets by mouth every week Methotrexate Sodium 2.5 MG Oral Tablet TAKE 6 TABLETS WEEKLY. Quantity: 0 Refills: 0 Ordered: 29-Jul-2022 DO Start : 14-Jan-2022 Active Methotrexate Act kelley methylPREDNISolone 4 mg oral tablet (5 sources) Corticosteroid Start: 11-11-2023 End: 03-11-2024 take 1 tablet by mouth once Methylprednisolone (Medrol (Al)) 4 mg tablets,dose pack Discontinued 0 PO per package directions 18 02November 11, 2023 12:00am March 11, 2024 10:30am PO PER PKG DIR Start: 09-03-2023 methylPREDNISo lone 4 MG as directed Orally for 6 days Aug, Active 24 hr metoprolol succinate 25 mg extended release oral tablet (20 sources) beta-Adrenergic Afshan Start: 03-11-2024 End: 06-03-2024 take 12.5 mg by mouth once daily Metoprolol Succinate Discontinued 12.5 MG PO Daily March 11, 2024 12:00am June 03, 2024 9:52am Start: 01-01-2024 End: 12-31-2024 Metoprolol Tartrate Disconti nued 25 MG PO .prn March 11, 2024 12:00am June 03, 2024 9:51am Start: 01-01-2024 End: 01-03-2025 take 1 tablet by mouth once daily metoprolol succinate XL (Toprol-XL) 25 mg 24 hr tablet Indications: Sinus tachycardia , Palpitations Take 1 tablet (25 mg) by mouth once daily. Do not crush or chew. 90 tablet 1 02/23/2024 03/14/2024 Discontinued (Therapy completed) Start: 01-01-2024 End: 01-04-2024 take 1 tablet by mouth twice daily metoprolol tartrate (Lopressor) 50 mg tablet Indications: Sinus tachycardia Take 1 tablet by mouth 2 times a day. 01/01/2024 01/04/2024 Discontinued (Therapy completed) Start: 11-06-2022 End: 01-01-2024 Metoprolol Tartrate 50 MG Or al Tablet Take 1 tablet as needed for SVT Quantity: 3 Refills: 0 Ordered: 06-Nov-2022 Rita Rocha MD Start : 06-Nov-2022 Active Semaglutide (2 sources) Start: 11-05-2023 End: 11-06-2023 Semaglutide (Ozempic) 0.25 mg or 0.5 mg (2 mg/3 mL) pen injector Discontinued 0.25 MG SUBCUT every week November 05, 2023 1:00am November 06, 2023 10:17am topiramate 25 mg oral tablet (6 sources) Start: 04-04-2024 End: 06-03-2024 take 1 tablet by mouth twice daily Topiramate (Topamax) 25 mg tablet Discontinued 25 MG PO Twice daily 60 April 04, 2024 4:37pm June 03, 2024 9:52am Start: 03-11-2024 End: 07-15-2024 take 1 tablet by mouth once daily Topiramate (Topamax) 25 mg tablet Discontinued 25 MG PO Daily 30 March 11, 2024 12:00am April 04, 2024 4:37pm Triamcinolone (14 sources) Corticosteroid Start: 02-23-2015 KENALOG - 10 m g Jan, 40 mg Problems Active Problems Problem Classification Problem Date Documented Date Episodic/Chronic Anxiety disorders (20 sources) Anxiety; Translations: [Anxiety disorder, unspecified] Onset: 10-26-2017 Chronic Cardiac dysrhythmias (20 sources) Supraventricular tachycardia; Translations: [Supraventricular tachycardia] Onset: 10-14-2022 Resolved: 01-01-2024 Chronic Chronic obstructive pulmonary disease and bronchiectasis (2 sources) Bronchitis; Translations: [Bronchitis, not specified as acute or chronic] 11-06-2023 Episodic E Codes: Adverse effects of medical drugs (1 source) Adverse effect of appetite depressants, initial encounter; Translations: [ADVERS EFF APPETITE DEPRESSANT INIT] Onset: 10-14-2022 Episodic Fluid and electrolyte disorders (1 source) Dehydration; Translations: [DEHYDRATION] Onset: 10-14-2022 Episodic Heart valve disorders (1 source) Rheumatic tricuspid insufficiency; Translations: [RHEUMATIC TRICUSPID INSUFFICIENCY] Onset: 10-29-2022 Chronic Mood disorders (16 sources) Major depressive disorder, single episode, unspecified; Translations: [Depression] 11-05-2023 Chronic Osteoporosis (4 sources) Postmenopausal osteoporosis; Translations: [Age-related osteoporosis without current pathological fracture] 11-05-2023 Chronic Other circulatory disease (12 sources) History of paroxysmal supraventricular tachycardia; Translations: [Personal history of other diseases of the circulatory system] Onset: 01-01-2024 01-01-2024 Episodic Other circulatory disease (6 sources) Personal history of other diseases of the circulatory system; Translations: [Personal history of other diseases of the circulatory system] Onset: 03-30-2024 Episodic Other connective tissue disease (8 sources) Pain in left foot; Translations: [Pain in left foot] Episodic Other female genital disorders (8 sources) Dyspareunia; Translations: [Dyspareunia] Chronic Other inflammatory condition of skin (20 sources) Psoriasis; Translations: [Psoriasis, unspecified] Onset: 10-30-2023 11-06-2023 Chronic Other inflammatory condition of skin (1 source) Psoriasis, unspecified; Translations: [PSORIASIS UNSPECIFIED] Onset: 10-14-2022 Chronic Other nutritional; endocrine; and metabolic disorders (20 sources) Body mass index 30+ - obesity; Translations: [Body mass index (BMI) 30.0-30.9, adult] Onset: 12-09-2018 07-15-2024 Chronic Other nutritional; endocrine; and metabolic disorders (3 sources) Body mass index (BMI) 30.0-30.9, adult; Translations: [Body mass index (BMI) 30.0-30.9, adult] Onset: 07-15-2024 Chronic Other nutritional; endocrine; and metabolic disorders (20 sources) Obesity; Translations: [Obesity, unspecified] Onset: 01-01-2024 01-01-2024 Chronic Other nutritional; endocrine; and metabolic disorders (5 sources) Obesity, unspecified; Translations: [Obesity, unspecified] Onset: 01-01-2024 Chronic Other nutritional; endocrine; and metabolic disorders (5 sources) Body mass index (BMI) 31.0-31.9, adult; Translations: [Body mass index (BMI) 31.0-31.9, adult] Onset: 01-01-2024 Chronic Other nutritional; endocrine; and metabolic disorders [...] Episodic Other nutritional; endocrine; and metabolic disorders (8 sources) Overweight; Translations: [Overweight] Episodic Otitis media and related conditions (8 sources) Non-suppurative otitis media; Translations: [Unspecified nonsuppurative otitis media, left ear] Episodic Residual codes; unclassified (11 sources) Never smoked tobacco; Translations: [Other specified health status] Onset: 01-01-2024 01-01-2024 Episodic Residual codes; unclassified (1 source) H/O cardiac surgery; Translations: [Other specified postprocedural states] 06-03-2024 Episodic Skin and subcutaneous tissue infections (8 sources) Localized infection of skin AND/OR subcutaneous tissue; Translations: [Local infection of the skin and subcutaneous tissue, unspecified] Episodic Unclassified (1 source) CONTACT W/AND (SUSP) EXPOS COVID-19; Translations: [CONTACT W/AND (SUSP) EXPOS COVID-19] Onset: 10-14-2022 Past or Other Problems Problem Classification Problem Date Documented Da te Episodic/Chronic Cardiac dysrhythmias (20 sources) Palpitations; Translations: [Tachycardia, unspecified] Onset: 10-11-2022 Resolved: 01-04-2024 Episodic Conditions associated with dizziness or vertigo (14 sources) Dizziness; Translations: [Dizziness and giddiness] Onset: 01-01-2024 01-01-2024 Episodic Other aftercare (3 sources) Other halfway (current) drug therapy; Translations: [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] Onset: 10-14-2022 Episodic Other aftercare (7 sources) Treatment changed; Translations: [Long-term (current) use of other medications] Onset: 03-14-2024 03-14-2024 Episodic Other bone disease and musculoskeletal deformities (8 sources) Bone density finding; Translations: [Other specified disorders of bone density and structure, unspecified site] Onset: 09-17-2017 Episodic Other lower respiratory disease (8 sources) Cough; Translations: [Cough] Onset: 10-11-2018 Episodic Other non-epithelial cancer of skin (2 sources) Malignant neoplasm of skin; Translations: [Unspecified malignant neoplasm of skin, unspecified] Onset: 04-07-2024 04-07-2024 Episodic Other non-traumatic joint disorders (8 sources) Arthralgia of the lower leg; Translations: [Pain in joint, lower leg] Onset: 09-17-2017 Episodic Other screening for suspected conditions (not mental disorders or infectious disease) (3 sources) Encounter for screening mammogram for malignant neoplasm of breast; Translations: [Electrocardiogram abnormal] Onset: 04-07-2024 Episodic Residual codes; unclassified (10 sources) Insomnia; Translations: [Insomnia, unspecified] Onset: 11-23-2017 11-05-2023 Episodic Residual codes; unclassified (5 sources) Asymptomatic menopausal state; Translations: [Asymptomatic menopausal state] Onset: 01-01-2024 Episodic Residual codes; unclassified (10 sources) FH: premature coronary heart disease; Translations: [Family history of ischemic heart disease and other diseases of the circulatory system] Onset: 01-01-2024 01-01-2024 Episodic Residual codes; unclassified (10 sources) Postmenopausal state; Translations: [Asymptomatic menopausal state] Onset: 01-01-2024 01-01-2024 Episodic Residual codes; unclassified (4 sources) Family history of ischemic heart disease and other diseases of the circulatory system; Translations: [Family history of ischemic heart disease and other diseases of the circulatory system] Onset: 01-01-2024 Episodic Residual codes; unclassified (4 sources) Other specified health status; Translations: [Other specified health status] Onset: 01-01-2024 Episodic Unclassified (3 sources) Patient status finding; Translations: [Patient new to provider] Unclassified (3 sources) Never smoked tobacco; Translations: [Never a smoker] Unclassified (6 sources) Onset: 01-01-2024 Resolved: 05-10-2024 01-01-2024 Results Test Name Value Interpretation Reference Range Facility ECG 12 Leadon 05-10-2024 Normal sinus rhythm, normal ECG, sinus rhythm 60bpm [facility] Work Phone: Activated clotting timeon ACT Coag (Bld) 162 s Normal 82-174 [facility] Comment on above: Result Comment: Targ et ACT range will vary based on the patient population, clinical status, and surgical intervention occurring. Performed By: #### [id number] #### CHANTEL Us ([id number]) [facility] ([facility]) [address] [place] [address] CT CARDIAC SCORING WO IV CON TRASTon 02-05-2024 CT CARDIAC SCORING WO IV CONTRAST Interpreted By: Gian Dixon, ADDENDUM: Technical: The following is to serve as an over-read for an unenhanced cardiac CT, to evaluate the extra vascular structures. Contiguous axial CT sections are performed from level the pablo to the upper abdomen. Findings: The visualized portions of both lungs are clear. There is no sign of pathologic lymph node enlargement. There is no pericardial or pleural effusion. Incompletely visualized 1 cm nodular density lies posterior to the spleen and could reflect a small splenule though is poorly evaluated on this examination. The visualized osseous and soft tissue structures of the chest wall are intact. Impression: The extra vascular structures have an unremarkable CT appearance. Signed by: Gian Dixon 02/07/2024 9:27 PM -------- ORIGINAL REPORT -------- Dictation workstation: [id number] Interpreted By: Gian Knapp, STUDY: CT CARDIAC SCORING WO IV CONTRAST; 02/05/2024 4:46 pm INDICATION: Signs/Symptoms:f/h cad; post menopausal. COMPARISON: None. ACCESSION NUMBER(S): [id number] ORDERING CLINICIAN: RITA ROCHA TECHNIQUE: Using prospective ECG gating, CT scan of the coronary arteries was performed without intravenous contrast. Coronary calcium scoring was performed according to the method of Agatston. CT Dose-Length Product (DLP): 60.7 mGy*cm CT Dose Reduction Employed: Yes, prospective gating, iterative reconstruction. FINDINGS: The score and distribution of calcium in the coronary arteries is as follows: LM 0 LAD 0 LCx 0 RCA 0 Total 0 The visualized mid/lower ascending thoracic aorta measures 3.2 cm in diameter. The heart is normal in size. No pericardial effusion is present. IMPRESSION: 1. Coronary artery calcium score of 0*. *Coronary artery calcium scoring may be helpful in predicting the risk for future coronary heart disease events. According to the [employer] Clinical Expert Consensus Task Force, such testing provides important prognostic information in patients with more than one coronary heart disease risk factor. The coronary artery calcium score correlates with the annual risk of a non-fatal myocardial infarction or coronary heart disease . Coronary artery score Annual Risk 0-99 0.4% 100-399 1.3% >400 2.4% These three breakpoints correspond to lower, intermediate and high risk states for future coronary events. Such information should be used, along with appropriate clinical judgment, to make decisions regarding the intensity of risk factor management strategies to treat blood lipids and to modify other non-lipid coronary risk factors. Reference: Bala P et al. Circulation. 2007; 115:402-426 Reading Professor Of Chemical Engineering: Dr. Gian Knapp, Date: 02/07/2024 8:57 pm Signed by: Gian Knapp 02/07/2024 8:57 PM Dictation workstation: [id number] [facility] Estimated glomerular filtrat ion rate (GFR) non- Americanon 01-08-2024 GFR/1.73 sq M.predicted among non-blacks MDRD (S/P/Bld) [Vol rate/Area] mL/min/{1.73_m2} >=60 [facility] Globulin Calc (S) [Mass/Vol] on 01-08-2024 Globulin (S) [Mass/Vol] 3.5 g/dL [facility] Laboratory - Chemistry and C hemistry - challengeon 01-08-2024 Albumin [Mass/Vol] 3.4 g/dL 3.4-5.0 [facility] ALP [Catalytic activity/Vol] 86 U/L 46-116 [facility] ALT [Catalytic activity/Vol] 19 U/L 14-59 [facility] AST [Catalytic activity/Vol] 13 U/L Low 15-37 [facility] Bilirubin [Mass/Vol] 0.4 mg/dL 0.2-1.0 [facility] Calcium [Mass/Vol] 8.8 mg/dL 8.5-10.1 [facility] Chloride [Moles/Vol] 106 mmol/L 98-107 [facility] CO2 [Moles/Vol] 29.3 mmol/L 21.0-32.0 [facility] Creatinine [Mass/Vol] 0.77 mg/dL 0.55-1.02 [facility] Free T4 [Mass/Vol] 0.87 ng/dL 0.76-1.46 [facility] GFR/1.73 sq M.predicted MDRD (S/P/Bld) [Vol rate/Area] mL/min/{1.73_m2} >=60 [facility] Glucose [Mass/Vol] 81 mg/dL 74-106 [facility] Potassium [Moles/Vol] 4.0 mmol/L 3.5-5.1 [facility] Protein [Mass/Vol] 6.9 g/dL 6.4-8.2 [facility] Sodium [Moles/Vol] 141 mmol/L 136-145 [facility] TSH Qn 2.200 m[IU]/L 0.358-3.740 [facility] Urea nitrogen [Mass/Vol] 20.0 mg/dL High 7.0-18.0 [facility] Urea nitrogen/Creatinine [Mass ratio] 26.0 mg/mg [facility] Serum or plasma albumin/glob ulin mass ratioon 01-08-2024 Albumin/Globulin [Mass ratio] 1.0 {ratio} [facility] Serum or plasma anion gap de terminationon 01-08-2024 Anion gap [Moles/Vol] 9.7 mmol/L [facility] ECG 12 Leadon 01-04-2024 [facility] Work Phone: Sinus bradycardia in the low 40s, normal intervals. CPACS [facility] Work Phone: ECG 12 lead (Clinic Performe d)on 01-01-2024 Sinus bradycardia in the 50s, normal intervals, pattern of septal myocardial infarction unchanged from prior ECGs. [facility] Work Phone: [facility] CARDIAC STRESS/REST INJE CTIONon 12-04-2022 [facility] CARDIAC STRESS/REST INJECTION Patient Name: LORENA VILLALOBOS STUDY: MYOCARDIAL PERFUSION STRESS TEST WITH EXERCISE Performing facility: [facility], [address] [place] [address], [address], [address] Provider: Rita Rocha MD, [facility] PCP: Dr. Luis Yee Supervising provider: Rita Rocha MD, [facility] INDICATION: Palpitations PSVT HISTORY: Gender: F; Age: 57 y/o ; Height: 0 cm; Weight: 0 kg. Arrhythmias; Palpitation, SVT Denies smoking. COMPARISON: No comparison. ACCESSION NUMBER(S): [id number]; [id number]; [id number] ORDERING CLINICIAN: RITA ROCHA TECHNIQUE: ONE DAY protocol. Stress injection: Date:12-04-22, [...] Electronically signed by: VINCENZO DUEÑAS MD Normal [facility] No Panel Informationon 12-04 Normal -[facility] Work Phone: Office Visit (Cardiology)on 11-06-2022 Follow-up [...] Stress/Rest Nuclear Med Order; Status:Hold For - Scheduling,Retrospect kelley Authorization; Requested for:06Nov2022; Radiologist to Determine Optimal [...] down to once daily. Per Dr. Rita Rocha MD 3-4 doses of PRN medications sent to pharmacy. Follow up in [4 ] months Chief Complaint LORENA VILLALOBOS is being seen for a cardiovascular evaluation. LORENA VILLALOBOS is being seen for SVT. History of [...] significant valvular heart disease. Reviewed records from [facility] dated 10/12/2022. Dr. Negron's office [...] 3. [place]ke (more content not included)... Normal [employer] Tobacco Screening.on 023 Adult depression screening assessment No -[facility] 250 DO Work Phone: Tobacco use status [facility]PH[facility] b) No -[facility] 250 DO Work Phone: ECHOCARDIO M/2D COMPLETEon 0 10-24-2022 ECHOCARDIO M/2D COMPLETE Patient: LORENA VILLALOBOS Exam Date: 10/24/2022 : 1965 Gender:F Ordering : DR VERONA YEE M.D. Admission #: [id number] Family : Order #: [id number] CLICK HERE TO VIEW EXAM ECHOCARDIOGRAM REPORT [...] Davila M.D. on 10/24/2022 at 14:55 Normal [facility] ECHOCARDIO M/2D COMPLETE [employer] Other CBC AUTO DIFFon 10-12-2022 BASO # 0.0 103/ul Normal 0.0-0.1 [facility] Comment on above: Performed By: #### C VDTBH #### [facility] [address] [address] [address] Drea Rockwell Basophils/100 WBC (Bld) 0.2 % Normal 0.2-2.0 [facility] Comment on above: Performed By: #### C VDTBH #### [facility] [address] [address] [address] Drea Rockwell EO # 0.1 103/ul Normal 0.0-0.7 [facility] Comment on above: Performed By: #### C VDTBH #### [facility] [address] [address] [address] Drea Rockwell Eosinophils/100 WBC (Bld) 2.4 % Normal 0.9-7.0 [facility] Comment on above: Performed By: #### C VDTBH #### [facility] [address] [address] [address] Drea Rockwell Erythrocyte distribution width (RBC) [Ratio] 12.5 % Normal 11.0-15.0 [facility] Comment on above: Performed By: #### C VDTBH #### [facility] [address] [address] [address] Drea Rockwell Hematocrit (Bld) [Volume fraction] 34.8 % Critically low 36.0-48.0 [facility] Comment on above: Performed By: #### C VDTBH #### [facility] [address] [place] [address] Dr. Drea Rockwell Hemoglobin (Bld) [Mass/Vol] 11.4 g/dL Critically low 12.0-16.0 [facility] Comment on above: Result Comment: IV f luids given Performed By: #### C VDTBH #### [facility] [address] [place] [address] Dr. Drea Rockwell IG # 0.00 10e3/ul Normal 0.00-0.03 [facility] Comment on above: Performed By: #### C VDTBH #### [facility] [address] [place] [address] Dr. Drea Rockwell IG % 0.0 % Normal 0.0-0.5 [facility] Comment on above: Performed By: #### C VDTBH #### [facility] [address] [place] [address] Dr. Drea Rockwell LYMPH # 1.5 103/ul Normal 1.2-3.8 [facility] Comment on above: Performed By: #### C VDTBH #### [facility] [address] [place] [address] Dr. Drea Rockwell Lymphocytes/100 WBC (Bld) 33.7 % Normal 20.5-60.0 [facility] Comment on above: Performed By: #### C VDTBH #### [facility] [address] [place] [address] Dr. Drea Rockwell MANUAL DIFF REQ NO Normal [facility] Comment on above: Performed By: #### C VDTBH #### [facility] [address] [place] [address] Dr. Drea Rockwell MCH (RBC) [Entitic mass] 29.9 pg Normal 26.7-34.0 [facility] Comment on above: Performed By: #### C VDTBH #### [facility] [address] [place] [address] Dr. Drea Rockwell MCHC (RBC) [Mass/Vol] 32.8 g/dL Normal 29.9-35.2 [facility] Comment on above: Performed By: #### C VDTBH #### [facility] [address] [place] [address] Dr. Drea Rockwell MCV (RBC) [Entitic vol] 91.3 fL Normal 81.0-99.0 [facility] Comment on above: Performed By: #### C VDTBH #### [facility] [address] [place] [address] Dr. Drea Rockwell MONO # 0.4 103/ul Normal 0.3-0.8 [facility] Comment on above: Performed By: #### C VDTBH #### [facility] [address] [place] [address] Dr. Drea Rockwell Monocytes/100 WBC (Bld) 9.3 % Normal 1.7-12.0 [facility] Comment on above: Performed By: #### C VDTBH #### [facility] [address] [place] [address] Dr. Drea Rockwell NEUT # 2.5 103/ul Normal 1.4-6.5 [facility] Comment on above: Performed By: #### C VDTBH #### [facility] [address] [place] [address] Dr. Drea Rockwell Neutrophils/100 WBC (Bld) 54.4 % Normal 43.0-75.0 [facility] Comment on above: Performed By: #### C VDTBH #### [facility] [address] [place] [address] Dr. Drea Rockwell Platelet mean volume (Bld) [Entitic vol] 11.1 fL Normal 9.5-13.5 [facility] Comment on above: Performed By: #### C VDTBH #### [facility] [address] [place] [address] Dr. Drea Rockwell PLT 150 103/ul Normal 150-450 [facility] Comment on above: Performed By: #### C VDTBH #### [facility] [address] [place] [address] Dr. Drea Rockwell RBC 3.81 106/ul Critically low 4.20-5.40 [facility] Comment on above: Performed By: #### C VDTBH #### [facility] [address] [place] [address] Dr. Drea Rockwell WBC 4.5 103/ul Normal 4.0-11.0 [facility] Comment on above: Performed By: #### C VDTBH #### [facility] [address] [place] [address] Dr. Drea Rockwell PROF 14(COMP METB)on 023 Albumin [Mass/Vol] 2.8 g/dL Critically low 3.4-5.0 [facility] Comment on above: Performed By: #### C VDTBH #### [facility] [address] [place] [address] Dr. Drea Rockwell Albumin/Globulin [Mass ratio] 1.1 {ratio} Normal [facility] Comment on above: Performed By: #### C VDTBH #### [facility] [address] [place] [address] Dr. Drea Rockwell ALP [Catalytic activity/Vol] 66 U/L Normal 46-116 [facility] Comment on above: Performed By: #### C VDTBH #### [facility] [address] [place] [address] Dr. Drea Rockwell ALT [Catalytic activity/Vol] 17 U/L Normal 14-59 [facility] Comment on above: Performed By: #### C VDTBH #### [facility] [address] [place] [address] Dr. Drea Rockwell Anion gap [Moles/Vol] 13.4 mmol/L Normal [facility] Comment on above: Performed By: #### C VDTBH #### [facility] [address] [place] [address] Dr. Drea Rockwell AST [Catalytic activity/Vol] 13 U/L Critically low 15-37 [facility] Comment on above: Performed By: #### C VDTBH #### [facility] [address] [place] [address] Dr. Drea Rockwell Bilirubin [Mass/Vol] 0.2 mg/dL Normal 0.2-1.0 [facility] Comment on above: Performed By: #### C VDTBH #### [facility] [address] [place] [address] Dr. Drea Rockwell Calcium [Mass/Vol] 8.1 mg/dL Critically low 8.5-10.1 Th [facility] Comment on above: Performed By: #### C VDTBH #### [facility] [address] [place] [address] Dr. Drea Rockwell Chloride [Moles/Vol] 109 mmol/L Critically high 98-107 [facility] Comment on above: Performed By: #### C VDTBH #### [facility] [address] [place] [address] Dr. Drea Rockwell CO2 [Moles/Vol] 25.6 mmol/L Normal 21.0-32.0 [facility] Comment on above: Performed By: #### C VDTBH #### [facility] [address] [place] [address] Dr. Drea Rockwell Creatinine [Mass/Vol] 0.83 mg/dL Normal 0.55-1.02 [facility] Comment on above: Performed By: #### C VDTBH #### [facility] [address] [place] [address] Dr. Drea Rockwell EGFR-AF DUTCH >60 Normal >=60 [facility] Comment on above: Performed By: #### C VDTBH #### [facility] [address] [place] [address] Dr. Drea Rockwell EGFR-NON AF DUTCH >60 Normal >=60 [facility] Comment on above: Performed By: #### C VDTBH #### [facility] [address] [place] [address] Dr. Drea Rockwell Globulin (S) [Mass/Vol] 2.6 g/dL Normal [facility] Comment on above: Performed By: #### C VDTBH #### [facility] [address] [place] [address] Dr. Drea Rockwell Glucose [Mass/Vol] 95 mg/dL Normal 74-106 [facility] Comment on above: Performed By: #### C VDTBH #### [facility] [address] [place] [address] Dr. Drea Rockwell Potassium [Moles/Vol] 4.0 mmol/L Normal 3.5-5.1 [facility] Comment on above: Performed By: #### C VDTBH #### [facility] [address] [place] [address] Dr. Drea Rockwell Protein [Mass/Vol] 5.4 g/dL Critically low 6.4-8.2 [facility] Comment on above: Performed By: #### C VDTBH #### [facility] [address] [place] [address] Dr. Drea Rockwell Sodium [Moles/Vol] 144 mmol/L Normal 136-145 [facility] Comment on above: Performed By: #### C VDTBH #### [facility] [address] [place] [address] Dr. Drea Rockwell Urea nitrogen [Mass/Vol] 17.0 mg/dL Normal 7.0-18.0 [facility] Comment on above: Performed By: #### C VDTBH #### [facility] [address] [place] [address] Dr. Drea Rockwell Urea nitrogen/Creatinine [Mass ratio] 20.5 mg/mg Normal [facility] Comment on above: Performed By: #### C VDTBH #### [facility] [address] [place] [address] Dr. Drea Rockwell US CAROTID ART BILon [...] by: SHAUNA ARNOLD Date: 2022-10-12 09:15 Normal [facility] BNPon 10-11-2022 Natriuretic peptide B (Bld) [Mass/Vol] 201.0 pg/mL Normal <=900.0 [facility] Comment on above: Performed By: #### B EXTENSION COURSE COORDINATOR, CMADM, CMP #### [facility] [address] [place] [address] Dr. Drea Rockwell CARDIAC ALFONSO ADMITon 023 CK [Catalytic activity/Vol] 65 U/L Normal 26-192 [facility] Comment on above: Performed By: #### B EXTENSION COURSE COORDINATOR, CMADM, CMP #### [facility] [address] [place] [address] Dr. Drea Rockwell CK.MB [Mass/Vol] 1.00 ng/mL Normal <=3.60 [facility] Comment on above: Performed By: #### B EXTENSION COURSE COORDINATOR, CMADM, CMP #### [facility] [address] [place] [address] Dr. Drea Rockwell HSTROP 7.4 pg/mL Normal 4.0-51.3 [facility] Comment on above: Result Comment: CUT- OFF POINTS HAVE BEEN ESTABLISHED BASED ON THE FOURTH UNIVERSAL DEFINITIONS OF MYOCARDIAL INFARCTION. THE UPPER REFERENCE LIMIT (URL) OF TROPONIN, DEFINED THE 99TH PERCENTILE OF cTnI DISTRIBUTION IN A REFERENCE POPULATION, HAS BEEN CONFIRMED THE DECISION THRESHOLD FOR [place] DIAGNOSIS. Performed By: #### B EXTENSION COURSE COORDINATOR, CMADM, CMP #### [facility] [address] [place] [address] Dr. Drea Rockwell AMY 149 ng/mL Critically high 9-[address] [facility] Comment on above: Performed By: #### B EXTENSION COURSE COORDINATOR, CMADM, CMP #### [facility] [address] [place] [address] Dr. Drea Rockwell CBC AUTO DIFFon 10-11-2022 BASO # 0.0 103/ul Normal 0.0-0.1 [facility] Comment on above: Performed By: #### C VDTBH #### [facility] [address] [place] [address] Dr. Drea Rockwell Basophils/100 WBC (Bld) 0.4 % Normal 0.2-2.0 [facility] Comment on above: Performed By: #### C VDTBH #### [facility] [address] [place] [address] Dr. Drea Rockwell EO # 0.1 103/ul Normal 0.0-0.7 [facility] Comment on above: Performed By: #### C VDTBH #### [facility] [address] [place] [address] Dr. Drea Rockwell Eosinophils/100 WBC (Bld) 1.3 % Normal 0.9-7.0 [facility] Comment on above: Performed By: #### C VDTBH #### [facility] [address] [place] [address] Dr. Drea Rockwell Erythrocyte distribution width (RBC) [Ratio] 12.5 % Normal 11.0-15.0 [facility] Comment on above: Performed By: #### C VDTBH #### [facility] [address] [place] [address] Dr. Drea Rockwell Hematocrit (Bld) [Volume fraction] 42.5 % Normal 36.0-48.0 [facility] Comment on above: Performed By: #### C VDTBH #### [facility] [address] [place] [address] Dr. Drea Rockwell Hemoglobin (Bld) [Mass/Vol] 14.3 g/dL Normal 12.0-16.0 [facility] Comment on above: Performed By: #### C VDTBH #### [facility] [address] [place] [address] Dr. Drea Rockwell IG # 0.01 10e3/ul Normal 0.00-0.03 [facility] Comment on above: Performed By: #### C VDTBH #### [facility] [address] [place] [address] Dr. Drea Rockwell IG % 0.1 % Normal 0.0-0.5 [facility] Comment on above: Performed By: #### C VDTBH #### [facility] [address] [place] [address] Dr. Drea Rockwell LYMPH # 2.2 103/ul Normal 1.2-3.8 [facility] Comment on above: Performed By: #### C VDTBH #### [facility] [address] [place] [address] Dr. Drea Rockwell Lymphocytes/100 WBC (Bld) 31.5 % Normal 20.5-60.0 [facility] Comment on above: Performed By: #### C VDTBH #### [facility] [address] [place] [address] Dr. Drea Rockwell MANUAL DIFF REQ NO Normal [facility] Comment on above: Performed By: #### C VDTBH #### [facility] [address] [place] [address] Dr. Drea Rockwell MCH (RBC) [Entitic mass] 30.6 pg Normal 26.7-34.0 [facility] Comment on above: Performed By: #### C VDTBH #### [facility] [address] [place] [address] Dr. Drea Rockwell MCHC (RBC) [Mass/Vol] 33.6 g/dL Normal 29.9-35.2 [facility] Comment on above: Performed By: #### C VDTBH #### [facility] [address] [place] [address] Dr. Drea Rockwell MCV (RBC) [Entitic vol] 91.0 fL Normal 81.0-99.0 [facility] Comment on above: Performed By: #### C VDTBH #### [facility] [address] [place] [address] Dr. Drea Rockwell MONO # 0.4 103/ul Normal 0.3-0.8 [facility] Comment on above: Performed By: #### C VDTBH #### [facility] [address] [place] [address] Dr. Drea Rockwell Monocytes/100 WBC (Bld) 5.6 % Normal 1.7-12.0 [facility] Comment on above: Performed By: #### C VDTBH #### [facility] [address] [place] [address] Dr. Drea Rockwell NEUT # 4.2 103/ul Normal 1.4-6.5 [facility] Comment on above: Performed By: #### C VDTBH #### [facility] [address] [place] [address] Dr. Drea Rockwell Neutrophils/100 WBC (Bld) 61.1 % Normal 43.0-75.0 [facility] Comment on above: Performed By: #### C VDTBH #### [facility] [address] [place] [address] Dr. Drea Rockwell Platelet mean volume (Bld) [Entitic vol] 11.0 fL Normal 9.5-13.5 [facility] Comment on above: Performed By: #### C VDTBH #### [facility] [address] [place] [address] Dr. Drea Rockwell PLT 211 103/ul Normal 150-450 [facility] Comment on above: Performed By: #### C VDTBH #### [facility] [address] [place] [address] Dr. Drea Rockwell RBC 4.67 106/ul Normal 4.20-5.40 [facility] Comment on above: Performed By: #### C VDTBH #### [facility] [address] [place] [address] Dr. Drea Rockwell WBC 6.9 103/ul Normal 4.0-11.0 [facility] Comment on above: Performed By: #### C VDTBH #### [facility] [address] [place] [address] Dr. Drea Rockwell Covid-19 PCR (CVDTB)on 10-01 SARS-CoV-2 (COVID-19) RNA SILVINA+probe Ql (Unsp spec) Not detected Normal NOT DETECTED [facility] Comment on above: Result Comment: [...] for this test is supported by the [place] of [employer] and Human Service's declaration that [...] longer be used). Performed By: #### C VDTB #### [facility] [address] [place] [address] Dr. Drea Rockwell PROF 14(COMP METB)on 023 Albumin [Mass/Vol] 3.8 g/dL Normal 3.4-5.0 [facility] Comment on above: Performed By: #### B EXTENSION COURSE COORDINATOR, CMADM, CMP #### [facility] [address] [place] [address] Dr. Drea Rockwell Albumin/Globulin [Mass ratio] 1.2 {ratio} Normal [facility] Comment on above: Performed By: #### B EXTENSION COURSE COORDINATOR, CMADM, CMP #### [facility] [address] [place] [address] Dr. Drea Rockwell ALP [Catalytic activity/Vol] 86 U/L Normal 46-116 [facility] Comment on above: Performed By: #### B EXTENSION COURSE COORDINATOR, CMADM, CMP #### [facility] [address] [place] [address] Dr. Drea Rockwell ALT [Catalytic activity/Vol] 21 U/L Normal 14-59 [facility] Comment on above: Performed By: #### B EXTENSION COURSE COORDINATOR, CMADM, CMP #### [facility] [address] [address] [address] Drea Rockwell Anion gap [Moles/Vol] 13.7 mmol/L Normal [facility] Comment on above: Performed By: #### B EXTENSION COURSE COORDINATOR, CMADM, CMP #### [facility] [address] [address] [address] Drea Rockwell AST [Catalytic activity/Vol] 16 U/L Normal 15-37 [facility] Comment on above: Performed By: #### B EXTENSION COURSE COORDINATOR, CMADM, CMP #### [facility] [address] [address] [address] Drea Rockwell Bilirubin [Mass/Vol] 0.4 mg/dL Normal 0.2-1.0 [facility] Comment on above: Performed By: #### B EXTENSION COURSE COORDINATOR, CMADM, CMP #### [facility] [address] [address] [address] Drea Rockwell Calcium [Mass/Vol] 8.8 mg/dL Normal 8.5-10.1 [facility] Comment on above: Performed By: #### B EXTENSION COURSE COORDINATOR, CMADM, CMP #### [facility] [address] [address] [address] Drea Rockwell Chloride [Moles/Vol] 102 mmol/L Normal 98-107 [facility] Comment on above: Performed By: #### B EXTENSION COURSE COORDINATOR, CMADM, CMP #### [facility] [address] [address] [address] Drea Rockwell CO2 [Moles/Vol] 27.1 mmol/L Normal 21.0-32.0 [facility] Comment on above: Performed By: #### B EXTENSION COURSE COORDINATOR, CMADM, CMP #### [facility] [address] [address] [address] Drea Rockwell Creatinine [Mass/Vol] 1.31 mg/dL Critically high 0.55-1.02 [facility] Comment on above: Performed By: #### B EXTENSION COURSE COORDINATOR, CMADM, CMP #### [facility] [address] [address] [address] Drea Rockwell EGFR-AF DUTCH 51 mL/min/1.73m2 Critically low >=60 [facility] Comment on above: Performed By: #### B EXTENSION COURSE COORDINATOR, CMADM, CMP #### [facility] [address] [address] [address] Drea Rockwell EGFR-NON AF DUTCH 42 mL/min/1.73m2 Critically low >=60 [facility] Comment on above: Performed By: #### B EXTENSION COURSE COORDINATOR, CMADM, CMP #### [facility] [address] [place] [address] Dr. Drea Rockwell Globulin (S) [Mass/Vol] 3.3 g/dL Normal [facility] Comment on above: Performed By: #### B EXTENSION COURSE COORDINATOR, CMADM, CMP #### [facility] [address] [place] [address] Dr. Drea Rockwell Glucose [Mass/Vol] 130 mg/dL Critically high 74-106 [facility] Comment on above: Performed By: #### B EXTENSION COURSE COORDINATOR, CMADM, CMP #### [facility] [address] [place] [address] Dr. Drea Rockwell Potassium [Moles/Vol] 3.8 mmol/L Normal 3.5-5.1 [facility] Comment on above: Performed By: #### B EXTENSION COURSE COORDINATOR, CMADM, CMP #### [facility] [address] [place] [address] Dr. Drea Rockwell Protein [Mass/Vol] 7.1 g/dL Normal 6.4-8.2 [facility] Comment on above: Performed By: #### B EXTENSION COURSE COORDINATOR, CMADM, CMP #### [facility] [address] [place] [address] Dr. Drea Rockwell Sodium [Moles/Vol] 139 mmol/L Normal 136-145 [facility] Comment on above: Performed By: #### B EXTENSION COURSE COORDINATOR, CMADM, CMP #### [facility] [address] [place] [address] Dr. Drea Rockwell Urea nitrogen [Mass/Vol] 15.0 mg/dL Normal 7.0-18.0 [facility] Comment on above: Performed By: #### B EXTENSION COURSE COORDINATOR, CMADM, CMP #### [facility] [address] [place] [address] Dr. Drea Rockwell Urea nitrogen/Creatinine [Mass ratio] 11.5 mg/mg Normal [facility] Comment on above: Performed By: #### B EXTENSION COURSE COORDINATOR, CMADM, CMP #### [facility] [address] [place] [address] Dr. Drea Rockwell PROTIMEon 10-11-2022 INR Coag (PPP) [Relative time] 0.99 {INR} Normal [facility] Comment on above: Performed By: #### C VDTBH #### [facility] [address] [place] [address] Dr. Drea Rockwell INR GUIDELINES SEE BELOW Normal [facility] Comment on above: Result Comment: CARROLL RED INR: 2.0 - 3.0 CONDITIONS NOT LISTED BELOW 2.5 - 3.5 FOR PROSTHETIC HEART VALVE REPLACEMENT 2.5 - 3.5 RECURRENT THROMBOSIS Performed By: #### C VDTBH #### [facility] [address] [place] [address] Dr. Drea Rockwell PT Coag (PPP) [Time] 10.5 s Normal 9.0-11.6 [facility] Comment on above: Performed By: #### C VDTBH #### [facility] [address] [place] [address] Dr. Drea Rockwell PTTon 10-11-2022 aPTT Coag (Bld) [Time] 29.4 s Normal 22.3-36.2 [facility] Comment on above: Performed By: #### C VDTBH #### [facility] [address] [place] [address] Dr. Drea Rockwell TROPONIN, HIGH SENSITIVITYon 10-11-2022 HSTROP 10.7 pg/mL Normal 4.0-51.3 [facility] Comment on above: Result Comment: CUT- OFF POINTS HAVE BEEN ESTABLISHED BASED ON THE FOURTH UNIVERSAL DEFINITIONS OF MYOCARDIAL INFARCTION. THE UPPER REFERENCE LIMIT (URL) OF TROPONIN, DEFINED THE 99TH PERCENTILE OF cTnI DISTRIBUTION IN A REFERENCE POPULATION, HAS BEEN CONFIRMED THE DECISION THRESHOLD FOR [place] DIAGNOSIS. Performed By: #### C VDTBH #### [facility] [address] [place] [address] Dr. Drea Rockwell XR CHEST 1 Von [...] WILLIS MURILLO Date: 2022-10-11 13:49 Normal [facility] CBC AUTO DIFFon 09-12-2022 BASO # 0.0 103/ul Normal 0.0-0.1 [facility] Comment on above: Performed By: #### C VDTBH #### [facility] [address] [place] [address] Dr. Drea Rockwell Basophils/100 WBC (Bld) 0.4 % Normal 0.2-2.0 [facility] Comment on above: Performed By: #### C VDTBH #### [facility] [address] [place] [address] Dr. Drea Rockwell EO # 0.1 103/ul Normal 0.0-0.7 [facility] Comment on above: Performed By: #### C VDTBH #### [facility] [address] [place] [address] Dr. Drea Rockwell Eosinophils/100 WBC (Bld) 0.9 % Normal 0.9-7.0 [facility] Comment on above: Performed By: #### C VDTBH #### [facility] [address] [place] [address] Dr. Dera Rockwell Erythrocyte distribution width (RBC) [Ratio] 12.6 % Normal 11.0-15.0 [facility] Comment on above: Performed By: #### C VDTBH #### [facility] [address] [place] [address] Dr. Drea Rockwell Hematocrit (Bld) [Volume fraction] 44.2 % Normal 36.0-48.0 [facility] Comment on above: Performed By: #### C VDTBH #### [facility] [address] [place] [address] Dr. Drea Rockwell Hemoglobin (Bld) [Mass/Vol] 13.2 g/dL Normal 12.0-16.0 [facility] Comment on above: Performed By: #### C VDTBH #### [facility] [address] [place] [address] Dr. Drea Rockwell IG # 0.02 10e3/ul Normal 0.00-0.03 [facility] Comment on above: Performed By: #### C VDTBH #### [facility] [address] [place] [address] Dr. Drea Rockwell IG % 0.4 % Normal 0.0-0.5 [facility] Comment on above: Performed By: #### C VDTBH #### [facility] [address] [place] [address] Dr. Drea Rockwell LYMPH # 1.5 103/ul Normal 1.2-3.8 [facility] Comment on above: Performed By: #### C VDTBH #### [facility] [address] [place] [address] Dr. Drea Rockwell Lymphocytes/100 WBC (Bld) 28.1 % Normal 20.5-60.0 [facility] Comment on above: Performed By: #### C VDTBH #### [facility] [address] [place] [address] Dr. Drea Rockwell MANUAL DIFF REQ NO Normal [facility] Comment on above: Performed By: #### C VDTBH #### [facility] [address] [place] [address] Dr. Drea Rockwell MCH (RBC) [Entitic mass] 30.2 pg Normal 26.7-34.0 [facility] Comment on above: Performed By: #### C VDTBH #### [facility] [address] [place] [address] Dr. Drea Rockwell MCHC (RBC) [Mass/Vol] 29.9 g/dL Normal 29.9-35.2 [facility] Comment on above: Performed By: #### C VDTBH #### [facility] [address] [place] [address] Dr. Drea Rockwell MCV (RBC) [Entitic vol] 101.1 fL Critically high 81.0-99.0 [facility] Comment on above: Performed By: #### C VDTBH #### [facility] [address] [place] [address] Dr. Drea Rockwell MONO # 0.3 103/ul Normal 0.3-0.8 [facility] Comment on above: Performed By: #### C VDTBH #### [facility] [address] [place] [address] Dr. Drea Rockwell Monocytes/100 WBC (Bld) 6.0 % Normal 1.7-12.0 [facility] Comment on above: Performed By: #### C VDTBH #### [facility] [address] [place] [address] Dr. Drea Rockwell NEUT # 3.4 103/ul Normal 1.4-6.5 [facility] Comment on above: Performed By: #### C VDTB #### [facility] [address] [place] [address] Dr. Drea Rockwell Neutrophils/100 WBC (Bld) 64.2 % Normal 43.0-75.0 [facility] Comment on above: Performed By: #### C VDTBH #### [facility] [address] [place] [address] Dr. Drea Rockwell Platelet mean volume (Bld) [Entitic vol] 10.9 fL Normal 9.5-13.5 [facility] Comment on above: Performed By: #### C VDTBH #### [facility] [address] [place] [address] Dr. Drea Rockwell PLT 190 103/ul Normal 150-450 [facility] Comment on above: Performed By: #### C VDTBH #### [facility] [address] [place] [address] Dr. Drea Rockwell RBC 4.37 106/ul Normal 4.20-5.40 [facility] Comment on above: Performed By: #### C VDTBH #### [facility] [address] [address] [address] Drea Rockwell WBC 5.3 103/ul Normal 4.0-11.0 [facility] Comment on above: Performed By: #### C VDTBH #### [facility] [address] [address] [address] Drea Rockwell LIPID PROFILEon 09-12-2022 CHOL-HDL RATIO NORM SEE BELOW Normal [facility] Comment on above: Result Comment: 3.3 - 4.4 LOW RISK 4.4 - 7.1 AVERAGE RISK 7.1 - 11.0 MODERATE RISK >11.0 HIGH RISK Performed By: #### L IPID, CMP, TSH #### [facility] [address] [address] [address] Drea Rockwell Cholesterol [Mass/Vol] 173 mg/dL Normal <=200 [facility] Comment on above: Performed By: #### L IPID, CMP, TSH #### [facility] [address] [address] [address] Drea Rockwell Cholesterol in HDL [Mass/Vol] 74 mg/dL Critically high 40-60 [facility] Comment on above: Performed By: #### L IPID, CMP, TSH #### [facility] [address] [address] [address] Drea Rockwell Cholesterol in LDL [Mass/Vol] 86.8 mg/dL Normal [facility] Comment on above: Performed By: #### L IPID, CMP, TSH #### [facility] [address] [address] [address] Drea Rockwell Cholesterol.total/C holesterol in HDL [Mass ratio] 2.3 {ratio} Normal [facility] Comment on above: Performed By: #### L IPID, CMP, TSH #### [facility] [address] [address] [address] Drea Rockwell HDL NORMAL > or = 60 mg/dl - LO W CARDIOVASCULAR RISK <40 mg/dl - HIGH CARDIOVASCULAR RISK Normal [facility] Comment on above: Performed By: #### L IPID, CMP, TSH #### [facility] [address] [address] [address] Drea Rockwell LDL CALC NORMAL SEE BELOW Normal [facility] Comment on above: Result Comment: <100 mg/dl OPTIMAL 100 - 129 mg/dl NEAR OR ABOVE OPTIMAL 130 - 159 mg/dl BORDERLINE HIGH 160 - 189 mg/dl HIGH >190 mg/dl VERY HIGH Performed By: #### L IPID, CMP, TSH #### [facility] [address] [address] [address] Drea Rockwell Triglyceride [Mass/Vol] 61 mg/dL Normal <=150 [facility] Comment on above: Performed By: #### L IPID, CMP, TSH #### [facility] [address] [address] [address] Drea Rockwell VLDL CALC 12.2 mg/dL Normal [facility] Comment on above: Performed By: #### L IPID, CMP, TSH #### [facility] [address] [place] [address] Dr. Drea Rockwell PROF 14(COMP METB)on 023 Albumin [Mass/Vol] 3.7 g/dL Normal 3.4-5.0 [facility] Comment on above: Performed By: #### L IPID, CMP, TSH #### [facility] [address] [place] [address] Dr. Drea Rockwell Albumin/Globulin [Mass ratio] 1.1 {ratio} Normal [facility] Comment on above: Performed By: #### L IPID, CMP, TSH #### [facility] [address] [address] [address] Drea Rockwell ALP [Catalytic activity/Vol] 79 U/L Normal 46-116 [facility] Comment on above: Performed By: #### L IPID, CMP, TSH #### [facility] [address] [address] [address] Drea Rockwell ALT [Catalytic activity/Vol] 18 U/L Normal 14-59 [facility] Comment on above: Performed By: #### L IPID, CMP, TSH #### [facility] [address] [place] [address] Dr. Drea Rockwell Anion gap [Moles/Vol] 9.5 mmol/L Normal [facility] Comment on above: Performed By: #### L IPID, CMP, TSH #### [facility] [address] [address] [address] Drea Rockwell AST [Catalytic activity/Vol] 13 U/L Critically low 15-37 [facility] Comment on above: Performed By: #### L IPID, CMP, TSH #### [facility] [address] [address] [address] Drea Rockwell Bilirubin [Mass/Vol] 0.3 mg/dL Normal 0.2-1.0 [facility] Comment on above: Performed By: #### L IPID, CMP, TSH #### [facility] [address] [place] [address] Dr. Drea Rockwell Calcium [Mass/Vol] 9.0 mg/dL Normal 8.5-10.1 [facility] Comment on above: Performed By: #### L IPID, CMP, TSH #### [facility] [address] [place] [address] Dr. Drea Rockwell Chloride [Moles/Vol] 106 mmol/L Normal 98-107 [facility] Comment on above: Performed By: #### L IPID, CMP, TSH #### [facility] [address] [place] [address] Dr. Drea Rockwell CO2 [Moles/Vol] 31.7 mmol/L Normal 21.0-32.0 [facility] Comment on above: Performed By: #### L IPID, CMP, TSH #### [facility] [address] [place] [address] Dr. Drea Rockwell Creatinine [Mass/Vol] 0.91 mg/dL Normal 0.55-1.02 [facility] Comment on above: Performed By: #### L IPID, CMP, TSH #### [facility] [address] [address] [address] Drea Rockwell EGFR-AF DUTCH >60 Normal >=60 [facility] Comment on above: Performed By: #### L IPID, CMP, TSH #### [facility] [address] [address] [address] Drea Rockwell EGFR-NON AF DUTCH >60 Normal >=60 [facility] Comment on above: Performed By: #### L IPID, CMP, TSH #### [facility] [address] [address] [address] Drea Rockwell Globulin (S) [Mass/Vol] 3.3 g/dL Normal [facility] Comment on above: Performed By: #### L IPID, CMP, TSH #### [facility] [address] [address] [address] Drea Rockwell Glucose [Mass/Vol] 86 mg/dL Normal 74-106 [facility] Comment on above: Performed By: #### L IPID, CMP, TSH #### [facility] [address] [address] [address] Drea Rockwell Potassium [Moles/Vol] 4.2 mmol/L Normal 3.5-5.1 [facility] Comment on above: Performed By: #### L IPID, CMP, TSH #### [facility] [address] [address] [address] Drea Rockwell Protein [Mass/Vol] 7.0 g/dL Normal 6.4-8.2 [facility] Comment on above: Performed By: #### L IPID, CMP, TSH #### [facility] [address] [address] [address] Drea Rockwell Sodium [Moles/Vol] 143 mmol/L Normal 136-145 [facility] Comment on above: Performed By: #### L IPID, CMP, TSH #### [facility] [address] [address] [address] Drea Rockwell Urea nitrogen [Mass/Vol] 19.0 mg/dL Critically high 7.0-18.0 [facility] Comment on above: Performed By: #### L IPID, CMP, TSH #### [facility] [address] [address] [address] Drea Rockwell Urea nitrogen/Creatinine [Mass ratio] 20.9 mg/mg Normal [facility] Comment on above: Performed By: #### L IPID, CMP, TSH #### [facility] [address] [place], [place] [address] Dr. Drea Rockwell TSHon 09-12-2022 TSH 1.851 uIU/mL Normal 0.358-3.740 [facility] Comment on above: Performed By: #### L IPID, CMP, TSH #### [facility] [id number] Drea Rockwell Vital Signs Date Time Vital Sign Value Performing Clinician Facility 07-15-2024 10:06-0500 Body height 162.6 cm Rita Rocha MD Work Phone: [facility] 07-15-2024 10:06-0500 Body mass index (BMI) [Ratio] 30.73 kg/m2 Rita Rocha MD Work Phone: [facility] 07-15-2024 10:06-0500 Body weight 81.19 kg Rita Rocha MD Work Phone: [facility] 07-15-2024 10:06-0500 Diastolic blood pressure 72 mm[Hg] Rita Rocha MD Work Phone: [facility] 07-15-2024 10:06-0500 Heart rate 78 /min Rita Rocha MD Work Phone: [facility] 07-15-2024 10:06-0500 Systolic blood pressure 113 mm[Hg] Rita Rocha MD Work Phone: [facility] 06-03-2024 09:39-0400 Body height 158.[address] [facility] 06-03-2024 09:39-0400 Body mass index (BMI) [Ratio] 34.3 kg/m2 [facility] 06-03-2024 09:39-0400 Body weight 85.[address] [facility] 06-03-2024 09:39-0400 Diastolic blood pressure 72 mm[Hg] [facility] 06-03-2024 09:39-0400 Heart rate 74 /min [facility] 06-03-2024 09:39-0400 Respiratory rate 18 /min [facility] 06-03-2024 09:39-0400 SaO2% (BldA) [Mass fraction] 99 % [facility] 06-03-2024 09:39-0400 Systolic blood pressure 135 mm[Hg] [facility] 05-10-2024 08:35-0400 Body height 162.6 cm Jamin Disla MD Work Phone: [facility] 05-10-2024 08:35-0400 Body mass index (BMI) [Ratio] 31.41 kg/m2 Jamin Disla MD Work Phone: [facility] 05-10-2024 08:35-0400 Body temperature 96.1 [degF] Jamin Disla MD Work Phone: [facility] 05-10-2024 08:35-0400 Body weight 83.01 kg Jamin Disla MD Work Phone: [facility] 05-10-2024 08:35-0400 Diastolic blood pressure 75 mm[Hg] Jamin Disla MD Work Phone: [facility] 05-10-2024 08:35-0400 Heart rate 62 /min Jamin Disla MD Work Phone: [facility] 05-10-2024 08:35-0400 Respiratory rate 16 /min Jamin Disla MD Work Phone: [facility] 05-10-2024 08:35-0400 SaO2% (BldA) [Mass fraction] 98 % Jamin Disla MD Work Phone: [facility] 05-10-2024 08:35-0400 Systolic blood pressure 146 mm[Hg] Jamin Disla MD Work Phone: [facility] 03-14-2024 14:25-0400 Body height 162.6 cm Rita Rocha MD Work Phone: [facility] 03-14-2024 14:25-0400 Body mass index (BMI) [Ratio] 31.76 kg/m2 Rita Rocha MD Work Phone: [facility] 03-14-2024 14:25-0400 Body weight 83.92 kg Rita Rocha MD Work Phone: [facility] 03-14-2024 14:25-0400 Diastolic blood pressure 60 mm[Hg] Rita Rocha MD Work Phone: [facility] 03-14-2024 14:25-0400 Heart rate 50 /min Rita Rocha MD Work Phone: [facility] 03-14-2024 14:25-0400 Systolic blood pressure 100 mm[Hg] Rita Rocha MD Work Phone: [facility] 03-11-2024 10:23-0400 Body height 160.[address] [facility] 03-11-2024 10:23-0400 Body mass index (BMI) [Ratio] 32.5 kg/m2 [facility] 03-11-2024 10:23-0400 Body weight 83.[address] [facility] 03-11-2024 10:23-0400 Diastolic blood pressure 80 mm[Hg] [facility] 03-11-2024 10:23-0400 Heart rate 54 /min [facility] 03-11-2024 10:23-0400 SaO2% (BldA) [Mass fraction] 99 % [facility] 03-11-2024 10:23-0400 Systolic blood pressure 122 mm[Hg] [facility] 01-04-2024 14:39-0400 Heart rate 49 /min Rita Rocha MD Work Phone: [facility] 01-04-2024 14:32-0400 Body height 162.6 cm Rita Rocha MD Work Phone: [facility] 01-04-2024 14:32-0400 Body mass index (BMI) [Ratio] 31.76 kg/m2 Rita Rocha MD Work Phone: [facility] 01-04-2024 14:32-0400 Body weight 83.92 kg Rita Rocha MD Work Phone: [facility] 01-04-2024 14:32-0400 Diastolic blood pressure 76 mm[Hg] Rita Rocha MD Work Phone: [facility] 01-04-2024 14:32-0400 Systolic blood pressure 116 mm[Hg] Rita Rocha MD Work Phone: [facility] 01-01-2024 10:08-0400 Body height 162.6 cm Rita Rocha MD Work Phone: [facility] 01-01-2024 10:08-0400 Body mass index (BMI) [Ratio] 31.51 kg/m2 Rita Rocha MD Work Phone: [facility] 01-01-2024 10:08-0400 Body temperature 97.2 [degF] Rita Rocha MD Work Phone: [facility] 01-01-2024 10:08-0400 Body weight 83.28 kg Rita Rocha MD Work Phone: [facility] 01-01-2024 10:08-0400 Diastolic blood pressure 79 mm[Hg] Rita Rocha MD Work Phone: [facility] 01-01-2024 10:08-0400 Heart rate 62 /min Rita Rocha MD Work Phone: [facility] 01-01-2024 10:08-0400 Systolic blood pressure 125 mm[Hg] Rita Rocha MD Work Phone: [facility] 08-04-2023 09:30-0500 Body height 160.02 cm Verona Yee Other [employer] Other 08-04-2023 09:30-0500 Body mass index (BMI) [Ratio] 31.78 kg/m2 Verona Yee Other [facility] [employer] Other 08-04-2023 09:30-0500 Body weight 81.38 kg Verona Yee Other [employer] Other 08-04-2023 09:30-0500 Diastolic blood pressure 77 mm[Hg] Verona Yee Other [facility] [employer] Other 08-04-2023 09:30-0500 Systolic blood pressure 107 mm[Hg] Verona Yee Other [facility] [employer] Other 12-04-2022 12:00-0400 65 1 Verona Yee Work Phone: [facility] [place] Work Phone: Comment on above: [id number] 11-06-2022 12:44-0500 Diastolic blood pressure 86 mm[Hg] Verona Yee Work Phone: [facility] 250 DO Work Phone: 11-06-2022 12:44-0500 Systolic blood pressure 138 mm[Hg] Verona Yee Work Phone: [facility] 250 DO Work Phone: 11-06-2022 12:43-0500 Body height 162.56 cm Verona Yee Work Phone: [facility] 250 DO Work Phone: 11-06-2022 12:43-0500 Body mass index (BMI) [Ratio] 28.84 kg/m2 Verona Yee Work Phone: [facility] 250 DO Work Phone: 11-06-2022 12:43-0500 Body surface area Derived from formula 1.82 m2 Verona Yee Work Phone: [facility] [employer] 250 DO Work Phone: 11-06-2022 12:43-0500 Body weight 76.2 kg Verona Yee Work Phone: [facility] [employer] 250 DO Work Phone: 11-06-2022 12:43-0500 Diastolic blood pressure 90 mm[Hg] Verona Yee Work Phone: [facility] [employer] 250 DO Work Phone: 11-06-2022 12:43-0500 Heart rate 68 /min Verona Yee Work Phone: [facility] [employer] 250 DO Work Phone: 11-06-2022 12:43-0500 Systolic blood pressure 142 mm[Hg] Verona Yee Work Phone: [facility] [employer] 250 DO Work Phone: 10-17-2022 12:30-0500 Body height 160.02 cm Verona Yee Other [facility] [employer] Other 10-17-2022 12:30-0500 Body mass index (BMI) [Ratio] 29.58 kg/m2 Verona Yee Other [employer] Other 10-17-2022 12:30-0500 Body weight 75.75 kg Verona Yee Other [employer] Other 10-17-2022 12:30-0500 Diastolic blood pressure 74 mm[Hg] Verona Yee Other [employer] Other 10-17-2022 12:30-0500 SaO2% (BldA) [Mass fraction] 97 % Verona Yee Other [employer] Other 10-17-2022 12:30-0500 Systolic blood pressure 118 mm[Hg] Verona Yee Other [employer] Other 10-10-2022 09:30-0500 Body height 160.02 cm Verona Yee Other [employer] Other 10-10-2022 09:30-0500 Body mass index (BMI) [Ratio] 29.58 kg/m2 Verona Yee Other [employer] Other 10-10-2022 09:30-0500 Body weight 75.75 kg Verona Yee Other [employer] Other 09-12-2022 09:45-0500 Body height 160.02 cm Verona Yee Other [employer] Other 09-12-2022 09:45-0500 Body mass index (BMI) [Ratio] 30.82 kg/m2 Vernoa Yee Other [employer] Other 09-12-2022 09:45-0500 Body weight 78.93 kg Verona Yee Other [employer] Other 09-12-2022 09:45-0500 Diastolic blood pressure 80 mm[Hg] Verona Yee Other [employer] Other 09-12-2022 09:45-0500 SaO2% (BldA) [Mass fraction] 97 % Verona Yee Other [employer] Other 09-12-2022 09:45-0500 Systolic blood pressure 122 mm[Hg] Verona Yee Other [employer] Other Encounters Encounter Date Encounter Type Care Provider Facility Start: 07-15-2024 End: 07-15-2024 Office outpatient visit 15 minutes Rita Rocha MD Work Phone: [facility] Comment on above: History of paroxysma l supraventricular tachycardia; Sinus tachycardia; BMI 30.0-30.9,adult; Never smoked cigarettes Start: 07-15-2024 End: 07-15-2024 ambulatory [facility] Start: 06-03-2024 End: 06-03-2024 ambulatory [facility] Work Phone: Start: 06-03-2024 End: 06-03-2024 Patient encounter procedure [facility] Work Phone: Start: 05-10-2024 End: 05-10-2024 Office outpatient visit 15 minutes Jamin Disla MD Work Phone: [facility] Comment on above: History of paroxysma l supraventricular tachycardia (Primary Dx) Start: 05-10-2024 End: 05-10-2024 ambulatory [facility] Start: 04-07-2024 End: 04-07-2024 ambulatory [facility] Start: 03-30-2024 End: 03-30-2024 ambulatory [facility] Start: 03-14-2024 End: 03-14-2024 ambulatory [facility] Start: 03-14-2024 End: 03-14-2024 Office outpatient visit 25 minutes Riat Rocha MD Work Phone: [facility] Comment on above: Palpitations; History of paroxysmal supraventricular tachycardia; Class 1 obesity with body mass index (BMI) of 31.0 to 31.9 in adult, unspecified obesity type, unspecified whether serious comorbidity present; Never smoked cigarettes; Sinus tachycardia; Family history of early CAD; Post-menopausal; Dizziness; Sinus bradycardia; Medication course changed Start: 03-11-2024 End: 03-11-2024 ambulatory [facility] Work Phone: Start: 03-11-2024 End: 03-11-2024 Patient encounter procedure [facility] Work Phone: Start: 02-05-2024 End: 02-05-2024 ambulatory [facility] Start: 02-05-2024 End: 02-05-2024 Subsequent hospital visit by physician [address] [facility] Comment on above: Sinus tachycardia; Family history of early CAD; Post-menopausal; Class 1 obesity with body mass index (BMI) of 31.0 to 31.9 in adult, unspecified obesity type, unspecified whether serious comorbidity present; Never smoked cigarettes; Palpitations; History of paroxysmal supraventricular tachycardia; Dizziness; Sinus bradycardia Start: 01-08-2024 Non-patient / Non-visit [facility] Work Phone: Start: 01-04-2024 End: 01-04-2024 Office outpatient visit 25 minutes Rita Rocha MD Work Phone: [facility] Comment on above: Typical atrial flutt er (Multi) (Primary Dx); Sinus tachycardia; Palpitations; History of paroxysmal supraventricular tachycardia; Class 1 obesity with body mass index (BMI) of 31.0 to 31.9 in adult, unspecified obesity type, unspecified whether serious comorbidity present; Never smoked cigarettes; Family history of early CAD; Post-menopausal; Dizziness; Sinus bradycardia Start: 01-04-2024 End: 01-04-2024 ambulatory [facility] Start: 01-01-2024 End: 01-01-2024 ambulatory [facility] Start: 01-01-2024 End: 01-01-2024 Office outpatient visit 25 minutes Rita Rocha MD Work Phone: [facility] [address] Comment on above: Sinus tachycardia; Family history of early CAD; Post-menopausal; Class 1 obesity with body mass index (BMI) of 31.0 to 31.9 in adult, unspecified obesity type, unspecified whether serious comorbidity present; Never smoked cigarettes; Palpitations; History of paroxysmal supraventricular tachycardia; Dizziness; Sinus bradycardia Start: 01-01-2024 End: 01-01-2024 ambulatory [facility] Start: 11-06-2023 End: 11-06-2023 ambulatory Verona Yee Other [employer] Other Start: 11-06-2023 Telephone encounter Verona Yee [facility] Start: 09-04-2023 End: 09-04-2023 ambulatory Verona Yee Other [employer] Other Start: 09-04-2023 Telephone encounter Verona Yee [facility] Start: 09-03-2023 End: 09-03-2023 ambulatory Verona Yee Other [employer] Other Start: 09-03-2023 Telephone encounter Verona Yee [facility] Start: 09-02-2023 End: 09-02-2023 ambulatory Verona eYe Other [employer] Other Start: 09-02-2023 Telephone encounter Verona Yee [facility] Start: 08-27-2023 End: 08-27-2023 ambulatory Verona Yee Other [employer] Other Start: 08-27-2023 Telephone encounter Verona Yee [facility] Start: 08-05-2023 End: 08-05-2023 ambulatory Verona Yee Other [employer] Other Start: 08-05-2023 Telephone encounter Verona Yee [facility] Start: 08-04-2023 End: 08-04-2023 ambulatory Verona Yee Other [employer] Other Start: 08-04-2023 Encounter for genera l adult medical examination without abnormal findings Verona Nakia [facility] Start: 08-04-2023 Office outpatient vi sit 15 minutes Verona Yee [facility] Start: 03-25-2023 End: 03-25-2023 ambulatory Verona Yee Other [employer] Other Start: 03-25-2023 Telephone encounter Verona Yee [facility] Start: 12-04-2022 Patient encounter procedure Verona Yee Work Phone: [facility] Work Phone: Start: 12-04-2022 ambulatory Rita Rocha Facility:[id number] Start: 11-06-2022 Office consultation new/estab patient 60 min Verona Yee Work Phone: [facility] 250 DO Work Phone: Start: 11-06-[address] Verona Yee Facility: Start: 10-29-2022 End: 10-29-2022 ambulatory Verona Yee Other [employer] Other Start: 10-29-2022 Telephone encounter Verona Yee [facility] Start: 10-24-2022 End: 10-25-[address] VERONA YEE Facility:[facility]1 Start: 10-20-2022 End: 10-20-2022 ambulatory Verona Yee Other [employer] Other Start: 10-20-2022 Encounter by computer link Verona jarrett [facility] Start: 10-17-2022 End: 10-17-2022 ambulatory Verona Yee Other [employer] Other Start: 10-17-2022 Office outpatient vi sit 15 minutes Verona Yee [facility] Start: 10-11-2022 End: 10-12-[address] LORNE MIGUEL . Facility:[facility]1 Start: 10-10-2022 End: 10-10-2022 ambulatory Verona Yee Other [employer] Other Start: 10-10-2022 Office outpatient vi sit 15 minutes Verona Yee [facility] Start: 09-24-2022 End: 09-24-2022 ambulatory Verona Yee Other [employer] Other Start: 09-24-2022 Telephone encounter Verona Yee [facility] Start: 09-19-2022 Encounter for genera l adult medical examination with abnormal findings DR VERONA YEE [facility] Start: 09-12-2022 End: 09-13-2022 Encounter for general adult medical examination with abnormal findings DR VERONA YEE Facility:[facility]1 Start: 09-12-2022 Office outpatient vi sit 15 minutes Verona Yee [facility] Start: 09-12-2022 End: 09-13-[address] VERONA YEE Facility:[facility]1 Start: 10-15-2021 Gynecological examin ation normal Verona Yee Other [employer] Other Start: 08-19-2021 Adult health examination Faye Yee Other [employer] Other Procedures Date Procedure Procedure Detail Performing Clinician Start: 05-10-2024 Ecg routine ecg w/le ast 12 lds i&r only Jamin Disla MD Work Phone: Start: 01-04-2024 ECG 12-LEAD RITA [facility] Start: 01-04-2024 Ecg routine ecg w/le ast 12 lds w/i&r Rita Rocha MD Work Phone: Start: 01-01-2024 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 RITA ROCHA Start: 01-01-2024 ECG 12-LEAD RITA [facility] Start: 01-01-2024 Ecg routine ecg w/le ast 12 lds w/i&r Rita Rocha MD Work Phone: Start: 05-17-2018 General examination of patient Verona Nakia Other Start: 05-17-2018 Screening for malign ant neoplasm of colon Verona Yee Other Start: 05-17-2018 Screening mammography Radha quesadaia Nakia Other Appendectomy Verona Yee Work Phone: Cataract surgery Verona jarrett Work Phone: Operative procedure on foot Verona Gomez Yee Work Phone: Operative procedure on knee Verona Gomez Yee Work Phone: Screening for malign ant neoplasm of breast Verona Yee Other Plan of Treatment Date Care Activity Detail Author Start: 07-18-2024 End: 07-18-2024 Patient encounter procedure 07/18/2024 3:30 PM EST Office Visit [facility] [address] [place] [address] Rita Rocha MD [address] [facility] [address] [place], [place] [id number] [facility] Start: 05-01-2024 COVID-19 Vaccine ( season) COVID-19 Vaccine ( season) [facility] Start: 05-01-2024 COVID-19 Vaccine ( season) COVID-19 Vaccine ( season) [facility] Start: 05-01-2024 Influenza vaccination [facility] Start: 03-30-2024 End: 03-30-2024 Patient encounter procedure 03/30/2024 8:20 AM EDT Office Visit [facility] [address] [facility] [address] [place] [id number] Jamin Disla MD [address] [place] [address] [facility] Start: 03-11-2024 End: 03-11-2024 Patient encounter procedure [facility] [address] Start: 01-01-2024 End: 12-31-2024 CT for calcium scoring WO contrast and CTA W contrast IV Heart and coronary arteries CT cardiac scoring wo IV contrast Imaging Routine Sinus tachycardia Family history of early CAD Post-menopausal Class 1 obesity with body mass index (BMI) of 31.0 to 31.9 in adult, unspecified obesity type, unspecified whether serious comorbidity present Never smoked cigarettes Palpitations History of paroxysmal supraventricular tachycardia Dizziness Sinus bradycardia Expected: 01/01/2024, Expires: 12/31/2024 [facility] Service Area Work Phone: Comment on above: Expected: 01/01/2024, Expires: Start: 01-01-2024 End: 12-31-2025 Holter monitor study Holter Or [employer] [facility] Routine Sinus tachycardia Family history of early CAD Post-menopausal Class 1 obesity with body mass index (BMI) of 31.0 to 31.9 in adult, unspecified obesity type, unspecified whether serious comorbidity present Never smoked cigarettes Palpitations History of paroxysmal supraventricular tachycardia Dizziness Sinus bradycardia Expected: 01/01/2024 (Approximate), Expires: 12/31/2025 [facility] Work Phone: Comment on above: Expected: 01/01/2024 (Approximate), Expi res: 12/31/2025 Start: 01-01-2024 End: 01-01-2024 Professional / ancillary services management 01/01/2024 1:00 PM EDT Ancillary Procedure [facility] [address] [address] Sinus tachycardia; Family history of early CAD; Post-menopausal; Class 1 obesity with body mass index (BMI) of 31.0 to 31.9 in adult, unspecified obesity type, unspecified whether serious comorbidity present; Never smoked cigarettes; Palpitations; History of paroxysmal supraventricular tachycardia; Dizziness; Sinus bradycardia [facility] Comment on above: Sinus tachycardia; Family history of early CAD; Post-menopausal; Class 1 obesity with body mass index (BMI) of 31.0 to 31.9 in adult, unspecified obesity type, unspecified whether serious comorbidity present; Never smoked cigarettes; Palpitations; History of paroxysmal supraventricular tachycardia; Dizziness; Sinus bradycardia Start: 05-01-2023 COVID-19 Vaccine () COVID-19 Vaccine ( season) [facility] Start: 03-12-2023 FUV, Provider: Rita Rocha, Status: Pen, Time: 2:30 PM FUV, Provider: Rita Rocha, Status: Pen, Time: 2:30 PM [place] [address] DO Work Phone: Start: 12-04-2022 STRESS NUC, Provider: BHAVANI RUSHINGI NUCLEAR [id number], Status: Pen, Time: 12:00 PM STRESS NUC, Provider: BHAVANI HHVI NUCLEAR 01,[id number], Status: Pen, Time: 12:00 PM [facility] 250 DO Work Phone: Start: 2015 Zoster Vaccines (1 of 2) Zoster Vaccines (1 of 2) [facility] Start: 2005 Screening for malignant neoplasm of breast Mammogram [facility] Start: 1987 DTaP/Tdap/Td Vaccines (1 - Tdap) DTaP/Tdap/Td Vaccines (1 - Tdap) [facility] Start: 1986 Screening for malignant neoplasm of cervix [facility] Start: 1984 Hepatitis B Vaccines (1 of 3 - 19+ 3-dose series) Hepatitis B Vaccines (1 of 3 - 19+ 3-dose series) [facility] Start: 1983 Diabetes mellitus screening Diabetes Screening [facility] Start: 1983 Hepatitis C screening Hepatitis C Screening [facility] Start: 1966 MMR Vaccines (1 of 1 - Standard series) MMR Vaccines (1 of 1 - Standard series) [facility] Start: 02-24-1966 Examination of skin Derm Melanoma Skin Check [facility] Start: 1965 HIV screening HIV Screening [facility] Start: 1965 Lipid panel Lipid Panel [facility] Start: 1965 Screening for malignant neoplasm of colon [facility] Start: 1965 Screening for osteoporosis Bone Density Scan [facility] Start: 1965 Yearly Adult Physical Yearly Adult Physical [facility] End: 02-05-2024 CT for calcium scoring WO contrast and CTA W contrast IV Heart and coronary arteries [facility] Service Area Work Phone: Comment on above: Once for 1 Occurrences starting 02/05/20 until 02/05/2024 Payers Date Payer Category Payer [employer] [facility] [id number] 2015 Unknown 1965 Unknown [id number] 9.2.593 1965 Unknown [id number] 9.2.593 1965 Unknown [id number] 9.2.593 1965 Unknown [id number] 9.2.356 1965 Unknown [id number] 9.2.1068 1965 Unknown [id number] 9.2.1245 1965 Unknown [id number] [id number] 9.2.1246 1965 Unknown [id number] 9.2.1246 1965 Unknown [id number] 9.2.1246 1965 Unknown [id number] 9.2.1244 1965 Unknown [id number] [id number] 9.2.1244 1965 Unknown [id number] [id number] 9.2.1244 1965 Unknown [id number] [id number] 9.2.1244 1965 Unknown [id number] 9.2.1244 1959 [facility] [id number] Private Health Insurance [employer] [id number] Self-pay Self Pay [id number] Social History Date Type Detail Facility Unknown if ever smoked [employer] Other Start: 01-01-2024 End: 03-30-2024 Sex Assigned At [facility] [place] Other Start: 01-01-2024 End: 03-30-2024 Caffeine use Caffeine use -[facility] DO Work Phone: Start: 01-01-2024 End: 06-03-2024 Tobacco smoking status NHIS Never smoked tobacco [facility] Work Phone: Start: 01-01-2024 Tobacco use and exposure Smokeless tobacco non-user [facility] Work Phone: Start: 01-01-2024 End: 05-10-2024 Alcoholic beverage intake Lifetime non-drinker (finding) [facility] Work Phone: Start: 1965 Sex assigned at Not on file [facility] Work Phone: Start: 12-22-2023 End: 07-15-2024 Exposure to SARS-CoV-2 (event) Not sure [facility] Start: 1965 Sex Assigned At Female F [facility] Clinical Notes 11-06-2021 to 07-15-2024 Rita Rocha MD - 07/15/2024 10:00 AM ESTPatient InstructionsJamin Disla MD - 05/10/2024 8:30 AM EDTGstephen Rocha MD - 03/14/2024 2:15 PM EDTPatient InstructionsPatient Instructions Note Date & Type Note Facility 07-15-2024 History of Present illness Narrative In February 2024 at which time we initiated low-dose diltiazem, and EP consultation. Subjective : Accompanied by to the office. Reports feeling great. Interval review of systems is negative for chest discomfort pressure tightness heaviness palpitations lightheadedness orthopnea paroxysmal nocturnal dyspnea dependent edema or claudication TIA or CVA type symptoms or bleeding diathesis No palpitations Blood pressure better Not on any cardiac medications History so Far : 1. Patient with palpitations, associated with what [...] 4. Patient is on methotrexate for? Psoriasis she is off of this medication based on 01/01/2024 visit. 5. Stress perfusion imaging December 05, 2022-8.5 METS, 107% age-predicted maximum heart rate, terminated due to fatigue, normal blood pressure response, no dysrhythmia, normal perfusion, LVEF 65%. 6. TrueAbility monitor December 2023-initial strip showed atrial flutter with ventricular rate close to 200 bpm 7. Coronary calcium score February 2024-0 8. TrueAbility 30 days December 2023-episodes of narrow complex tachycardia some consistent with atrial fibrillation with rapid ventricular rate others more regular with rates up to 200 bpm either SVT or less likely atrial flutter. 9. Status post successful slow pathway modification of narrow complex tachycardia consistent with AVNRT by Dr. Disla March 2024 Objective Wt Readings from Last 3 Encounters: 07/15/24 81.2 kg (179 lb) 05/10/24 83 kg (183 lb) 03/30/24 83.5 kg (184 lb) Vitals: 07/15/24 1006 BP: 113/72 BP Location: Left arm Patient Position: Sitting BP Cuff Size: Large adult Pulse: 78 Weight: 81.2 kg (179 lb) Height: 1.626 m (5' 4 ) Physical Exam: GENERAL APPEARANCE: in no acute distress. CHEST: Symmetric and non-tender. INTEGUMENT: Skin warm and dry HEENT: No gross abnormalities identified.No pallor or scleral icterus. NECK: Supple, no JVD, no bruit. NEURO/PSHCY: Alert and oriented x3; appropriate behavior and responses and responses LUNGS: Clear to auscultation bilaterally; normal respiratory effort. HEART: Rate and rhythm regular with no evident murmur; no gallop appreciated. ABDOMEN: Soft, non tender. MUSCULOSKELETAL: No gross deformities. EXTREMITIES: Warm There is no edema noted. Meds: Current Outpatient Medications Medication Instructions clobetasol (Temovate) 0.05 % ointment 1 Application, 2 times daily KlonoPIN 0.5 mg, Nightly magnesium oxide 400 mg, oral, 2 times daily Allergies Allergen Reactions Ibandronate Myalgia Metoprolol Drowsiness LABS: No results found for: WBC , HGB , HCT , PLT , CHOL , TRIG , HDL , LDLDIRECT , ALT , AST , NA , K , CL , CREATININE , BUN , CO2 , TSH , PSA , INR , GLUF , HGBA1C , ALBUR Patient Active Problem List Diagnosis Date Noted BMI 30.0-30.9,adult 07/15/2024 Abnormal EKG 04/07/2024 Anxiety 04/07/2024 Skin cancer 04/07/2024 Medication course changed 03/14/2024 Typical atrial flutter (Multi) 01/04/2024 Never smoked cigarettes 01/01/2024 Class 1 obesity with body mass index (BMI) of 31.0 to 31.9 in adult 01/01/2024 Family history of early CAD 01/01/2024 Post-menopausal 01/01/2024 Palpitations 01/01/2024 Dizziness 01/01/2024 History of paroxysmal supraventricular tachycardia 01/01/2024 Sinus bradycardia 01/01/2024 Assessment: 1. History of paroxysmal supraventricular tachycardia 2. Sinus tachycardia Follow Up In Cardiology 3. BMI 30.0-30.9,adult 4. Never smoked cigarettes Patient is doing great. She will follow-up now with Dr. Yee on a regular basis, and with me on a as needed basis. Follow up : prn Thank you Dr. Yee for allowing me to participate in Lorena's care, please do not hesitate to call if further questions arise, Sincerely, Provider Attestation - Scribe documentation All medical record entries made by the Scribe were at my direction and personally dictated by me. I have reviewed the chart and agree that the record accurately reflects my personal performance of the history, physical exam, discussion and plan. documented in this encounter [facility] Work Phone: 07-15-2024 Instructions Shauna Casarez LPN - 07/15/2024 10:00 AM EST Follow up as needed documented in this encounter [facility] Work Phone: 05-10-2024 History of Present illness Narrative Images from the original note were not included. Referring Provider: Rita Rocha MD Reason for Consult: Supraventricular tachycardia History of Present Illness: Lorena Villalobos is a 58 y.o. year old female patient with a history significant for palpitations who is referred by Dr. Rocha for further management. She reports that she began having episodes of palpitations in early 40s. Initially, it would only last for couple minutes later away. More recently, she was prescribed phentermine for weight loss. This medication exacerbated her palpitations, and they began to last much longer. Earlier this year, she was admitted to the emergency department with palpitations and was noted to be in sinus tachycardia. After this, her phentermine was stopped, but she continued to have episodes of palpitations. She was eventually started on standing metoprolol rather than pill in the pocket, which helped to attenuate the episodes, but she continues to have them. She recently wore a monitor for a month which showed episodes of narrow complex supraventricular tachycardia with rates close to 200. Her longest episode of supraventricular tachycardia has been 40 minutes. She has attempted vagal maneuvers, but these do not seem to help. 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 She is doing well after ablation. Focused Cardiovascular Problem List: AVNRT: Narrow complex, with rates close to 200 on monitoring. S/p successful slow pathway modification on 04/07/2024 Past Medical and Surgical History: Ms. Villalobos has a past medical history of Abnormal ECG (10/2022) and Cancer (Multi) (02/2023). has a past surgical history that includes Cataract extraction, bilateral (Bilateral); Appendectomy; Skin cancer excision; and Cardiac electrophysiology procedure (N/A, 04/07/2024). Social History: Social History Tobacco Use Smoking status: Never Smokeless tobacco: Never Substance Use Topics Alcohol use: Never Tobacco: Denies Alcohol: Denies Drug use: Denies Relevant Family History: Family History Problem Relation Name Age of Onset Abnormal EKG Mother Camryn Babcock Atrial fibrillation Mother Camryn Babcock Cancer Mother Camryn Babcock Heart disease Mother Camryn Babcock Thyroid disease Mother Camryn Babcock Hyperlipidemia Father Chay Babcock Hypertension Father Chay Babcock Abnormal EKG Sister Nava Babcock Hyperlipidemia Sister Nava Babcock Hypertension Sister Nava Babcock Obesity Sister Nava Babcock Abnormal EKG Brother Bradley Babcock Hyperlipidemia Brother Chu Babcock Hypertension Brother Chu Babcock No other relevant family history Allergies: Allergies Allergen Reactions Ibandronate Myalgia Metoprolol Drowsiness Medications: Current Outpatient Medications Medication Instructions aspirin 81 mg, oral, Daily KlonoPIN 0.5 mg, oral, Nightly magnesium oxide 400 mg, oral, 2 times daily topiramate (TOPAMAX) 25 mg, oral, Daily Objective Physical Exam: Last Recorded Vitals: 11/06/2022 12:44 PM 01/01/2024 10:08 AM 01/04/2024 2:32 PM 01/04/2024 2:39 PM 03/14/2024 2:25 PM 03/30/2024 8:22 AM 05/10/2024 8:35 AM Vitals Systolic 138 125 116 100 137 146 Diastolic 86 79 76 60 79 75 Heart Rate 62 48 49 50 66 62 Temp 36.2 C (97.2 F) 36.2 C (97.1 F) 35.6 C (96.1 F) Resp 16 Height (in) 1.626 m (5' 4 ) 1.626 m (5' 4 ) 1.626 m (5' 4 ) 1.626 m (5' 4 ) 1.626 m (5' 4 ) Weight (lb) 183.6 185 185 184 183 BMI 31.51 kg/m2 31.76 kg/m2 31.76 kg/m2 31.58 kg/m2 31.41 kg/m2 BSA (m2) 1.94 m2 1.95 m2 1.95 m2 1.94 m2 1.94 m2 Visit Report Report Report Report Report Report Report Visit Vitals BP 146/75 Pulse 62 Temp 35.6 C (96.1 F) Resp 16 Ht 1.626 m (5' 4 ) Wt 83 kg (183 lb) SpO2 98% BMI 31.41 kg/m Smoking Status Never BSA 1.94 m Gen: NAD, sitting comfortably HEENT: NC/AT Card: RRR, no m/r/g Pulm: Clear to auscultation bilaterally Neuro: No focal deficits Diagnostic Results My Interpretation of Reviewed Study(s): Prior ECGs (reviewed and my interpretation): 05/10/2024: Normal sinus rhythm, normal ECG 03/30/2024: Sinus bradycardia, heart rate 59 bpm Cardiac Rhythm Monitors: 01/01/2024: 30-day event monitor which showed episodes of narrow complex SVT Echocardiography: 10/24/2022: Normal echocardiogram with normal valvular function No echocardiogram results found for the past 12 months Stress Test: 12/05/2022: Normal nuclear stress test with no perfusion defects Relevant Labs: No results found for: CREATININE , CCL , K , HGBA1C , HGB , INR , AST , ALT Assessment/Plan Assessment and Plan: Lorena Villalobos is a 58 y.o. year old female patient who was referred for management and evaluation of narrow complex tachycardia. She underwent successful slow pathway modification on 04/07/2024. She has done very well after the procedure with no issues and no recurrent palpitations. She was placed on 1 month of baby aspirin after the ablation. She can discontinue this medication at this point. She had a question about resuming phentermine. Prior to ablation, it seemed to be exacerbating her AVNRT. Now that she is status post ablation, her AVNRT is cured. However, phentermine can increase the incidence of other atrial arrhythmias. I do not have an objection for her retrialing phentermine, but if she does have recurrent palpitations, this does not mean her AVNRT has recurred, and may just be an unrelated arrhythmia. Return to Clinic: PRN Thank you very much for allowing me to participate in the care of this patient. Please do not hesitate to contact me with any further questions or concerns. Jamin Disla MD [employer] Installation Engineer, [facility] [place] Front Workerclerk general, [facility] [employer] Director of Atrial Fibrillation Ablation, [facility] Health ServicesGrease Man of Ventricular Arrhythmias Research, [facility] Office documented in this encounter [facility] Work Phone: 03-14-2024 History of Present illness Narrative Patient with persistent atrial fibrillation, cannot exclude coexisting supraventricular tachycardia or atrial flutter, borderline systolic blood pressure, intolerance to medications, presents for follow-up accompanied by to the office. Subjective : Continues to have palpitations worsening fatigue, Fitbit reads heart rates as high as 200, today's blood pressure 100/60, takes metoprolol 20 doses, but it leaves her extremely fatigued, and believes little energy for her work and day-to-day activities. Laboratory data December 2023 shows normal free T4 of 0.87. 30-day event monitor from December 2023 showed normal sinus rhythm and bouts of symptomatic narrow complex tachycardia some appear atrial fibrillation with rapid ventricular rate others narrow complex tachycardia with rate close to 200 suggestive of SVT or less likely atrial flutter She gets anterior chest heaviness when she has the palpitations. Her calcium score was 0. History so Far : 1. Patient with palpitations, associated with what [...] 4. Patient is on methotrexate for? Psoriasis she is off of this medication based on 01/01/2024 visit. 5. Stress perfusion imaging December 05, 2022-8.5 METS, 107% age-predicted maximum heart rate, terminated due to fatigue, normal blood pressure response, no dysrhythmia, normal perfusion, LVEF 65%. 6. TrueAbility monitor December 2023-initial strip showed atrial flutter with ventricular rate close to 200 bpm 7. Coronary calcium score February 2024-0 8. TrueAbility 30 days December 2023-episodes of narrow complex tachycardia some consistent with atrial fibrillation with rapid ventricular rate others more regular with rates up to 200 bpm either SVT or less likely atrial flutter. Objective Wt Readings from Last 3 Encounters: 03/14/24 83.9 kg (185 lb) 01/04/24 83.9 kg (185 lb) 01/01/24 83.3 kg (183 lb 9.6 oz) Vitals: 03/14/24 1425 BP: 100/60 BP Location: Right arm Patient Position: Sitting Pulse: 50 Weight: 83.9 kg (185 lb) Height: 1.626 m (5' 4 ) Physical Exam: GENERAL APPEARANCE: in no acute distress. CHEST: Symmetric and non-tender. INTEGUMENT: Skin warm and dry HEENT: No gross abnormalities identified.No pallor or scleral icterus. NECK: Supple, no JVD, no bruit. NEURO/PSHCY: Alert and oriented x3; appropriate behavior and responses and responses LUNGS: Clear to auscultation bilaterally; normal respiratory effort. HEART: Rate and rhythm regular with no evident murmur; no gallop appreciated. ABDOMEN: Soft, non tender. MUSCULOSKELETAL: No gross deformities. EXTREMITIES: Warm There is no edema noted. Meds: Current Outpatient Medications Medication Instructions aspirin 81 mg, oral, Daily dilTIAZem (CARDIZEM) 30 mg, oral, 2 times daily KlonoPIN 0.5 mg, oral, Daily magnesium oxide 400 mg, oral, 2 times daily topiramate (TOPAMAX) 25 mg, oral, Daily Allergies Allergen Reactions Ibandronate Myalgia Metoprolol Drowsiness LABS: Free T4 and TSH are normal Patient Active Problem List Diagnosis Date Noted Medication course changed 03/14/2024 Typical atrial flutter (Multi) 01/04/2024 Never smoked cigarettes 01/01/2024 Class 1 obesity with body mass index (BMI) of 31.0 to 31.9 in adult 01/01/2024 Family history of early CAD 01/01/2024 Post-menopausal 01/01/2024 Palpitations 01/01/2024 Dizziness 01/01/2024 History of paroxysmal supraventricular tachycardia 01/01/2024 Sinus bradycardia 01/01/2024 Assessment: 1. Palpitations magnesium oxide 400 mg magnesium capsule Referral to Cardiac Electrophysiology dilTIAZem (Cardizem) 30 mg immediate release tablet 2. History of paroxysmal supraventricular tachycardia magnesium oxide 400 mg magnesium capsule Referral to Cardiac Electrophysiology dilTIAZem (Cardizem) 30 mg immediate release tablet 3. Class 1 obesity with body mass index (BMI) of 31.0 to 31.9 in adult, unspecified obesity type, unspecified whether serious comorbidity present 4. Never smoked cigarettes 5. Sinus tachycardia Follow Up In Cardiology magnesium oxide 400 mg magnesium capsule Referral to Cardiac Electrophysiology 6. Family history of early CAD 7. Post-menopausal 8. Dizziness magnesium oxide 400 mg magnesium capsule 9. Sinus bradycardia magnesium oxide 400 mg magnesium capsule 10. Medication course changed Clinical decision making: Highly symptomatic tachycardia paroxysmal atrial fibrillation possible SVT versus atrial flutter ventricular rates as high as 200 associated with anginal type chest discomfort no evidence of flow-limiting coronary artery disease, does not tolerate AV anaya blocking agents particularly metoprolol even in small doses tends to get arterial hypotension fatigue and bradycardia , I think she is best served with EP evaluation for ablation. She was extremely reluctant previously with this approach. We talked about antiarrhythmic therapy, but her sensitivity to medications and her tendency for sinus bradycardia may be reluctant to try this approach. Recently a relative of hers had atrial fibrillation ablation and is doing very well, therefore she is more open to this idea. In view of her profound fatigue, we will try to switch her from metoprolol to diltiazem. She will take 30 mg p.o. twice daily, she may increase the dose to 3 times a day as needed. She reports that her palpitations are more frequent in the evenings. She can probably take the first dose mid afternoon and the second dose in the evening or at bedtime. Referral established to EP service Dr. Disla Follow up : 3 months Provider Attestation - Scribe documentation All medical record entries made by the Scribe were at my direction and personally dictated by me. I have reviewed the chart and agree that the record accurately reflects my personal performance of the history, physical exam, discussion and plan. Scribe Attestation By signing my name below, I, Roshni Mehta LPN , Trevor attest that this documentation has been prepared under the direction and in the presence of Rita Rocha MD. documented in this encounter [facility] Work Phone: 03-14-2024 Instructions Roshni Brand LPN - 03/14/2024 2:15 PM EDT Please bring all medicines, vitamins, and herbal supplements with you when you come to the office. Prescriptions will not be filled unless you are compliant with your follow up appointments or have a follow up appointment scheduled as per instruction of your physician. Refills should be requested at the time of your visit. BMI was above normal measurement. Current weight: 83.9 kg (185 lb) Weight change since last visit (-) denotes wt loss 0 lbs Weight loss needed to achieve BMI 25: 39.7 Lbs Weight loss needed to achieve BMI 30: 10.6 Lbs Advised to Increase physical activity. documented in this encounter [facility] Work Phone: 01-04-2024 History of Present illness Narrative This is a follow up from 01/01/2024 Subjective : Shortly after patient left the office on 01/01/2024, she was hooked up for True[employer], and she went into atrial flutter with rapid ventricular rate close to 200 bpm. She has not had any recurrence of symptoms since then. At that point, we notified her to start metoprolol on a regular basis. She is currently taking metoprolol succinate 25 mg p.o. daily. She is not taking any flecainide. She feels well on the metoprolol succinate 25 mg daily. She has metoprolol tartrate to take as needed palpitations. She is accompanied by her to the office. She denies any lightheadedness presyncope syncope or undue fatigue. Her resting heart rate is 48 bpm. History so Far : 1. Patient with palpitations, associated with what [...] 4. Patient is on methotrexate for? Psoriasis she is off of this medication based on 01/01/2024 visit. 5. Stress perfusion imaging December 05, 2022-8.5 METS, 107% age-predicted maximum heart rate, terminated due to fatigue, normal blood pressure response, no dysrhythmia, normal perfusion, LVEF 65%. 6. TrueAbility monitor December 2023-initial stroke showed atrial flutter with ventricular rate close to 200 bpm Objective Wt Readings from Last 3 Encounters: 01/04/24 83.9 kg (185 lb) 01/01/24 83.3 kg (183 lb 9.6 oz) 11/06/22 76.2 kg (168 lb) Vitals: 01/04/24 1432 01/04/24 1439 BP: 116/76 BP Location: Left arm Patient Position: Sitting Pulse: (!) 48 (!) 49 Weight: 83.9 kg (185 lb) Height: 1.626 m (5' 4 ) Physical Exam: GENERAL APPEARANCE: in no acute distress. CHEST: Symmetric and non-tender. INTEGUMENT: Skin warm and dry HEENT: No gross abnormalities identified.No pallor or scleral icterus. NECK: Supple, no JVD, no bruit. NEURO/PSHCY: Alert and oriented x3; appropriate behavior and responses and responses LUNGS: Clear to auscultation bilaterally; normal respiratory effort. HEART: Rate and rhythm regular with no evident murmur; no gallop appreciated. ABDOMEN: Soft, non tender. MUSCULOSKELETAL: No gross deformities. EXTREMITIES: Warm There is no edema noted. Meds: Current Outpatient Medications Medication Instructions aspirin 81 mg, oral, Daily KlonoPIN 0.5 mg, oral, Daily magnesium oxide 400 mg, oral, 2 times daily metoprolol succinate XL (TOPROL-XL) 25 mg, oral, Daily, Do not crush or chew. metoprolol tartrate (LOPRESSOR) 25 mg, oral, As needed Allergies Allergen Reactions Ibandronate Myalgia LABS: No results found for: WBC , HGB , HCT , PLT , CHOL , TRIG , HDL , LDLDIRECT , ALT , AST , NA , K , CL , CREATININE , BUN , CO2 , TSH , PSA , INR , GLUF , HGBA1C , ALBUR Patient Active Problem List Diagnosis Date Noted Typical atrial flutter (Multi) 01/04/2024 Never smoked cigarettes 01/01/2024 Class 1 obesity with body mass index (BMI) of 31.0 to 31.9 in adult 01/01/2024 Family history of early CAD 01/01/2024 Post-menopausal 01/01/2024 Palpitations 01/01/2024 Dizziness 01/01/2024 History of paroxysmal supraventricular tachycardia 01/01/2024 Sinus bradycardia 01/01/2024 Assessment: 1. Typical atrial flutter (Multi) 2. Sinus tachycardia ECG 12 Lead metoprolol succinate XL (Toprol-XL) 25 mg 24 hr tablet magnesium oxide 400 mg magnesium capsule 3. Palpitations metoprolol succinate XL (Toprol-XL) 25 mg 24 hr tablet magnesium oxide 400 mg magnesium capsule 4. History of paroxysmal supraventricular tachycardia magnesium oxide 400 mg magnesium capsule 5. Class 1 obesity with body mass index (BMI) of 31.0 to 31.9 in adult, unspecified obesity type, unspecified whether serious comorbidity present magnesium oxide 400 mg magnesium capsule 6. Never smoked cigarettes magnesium oxide 400 mg magnesium capsule 7. Family history of early CAD magnesium oxide 400 mg magnesium capsule 8. Post-menopausal magnesium oxide 400 mg magnesium capsule 9. Dizziness magnesium oxide 400 mg magnesium capsule 10. Sinus bradycardia magnesium oxide 400 mg magnesium capsule Clinical decision making: Patient with bouts of atrial flutter, palpitations increasing in frequency, had 4 episodes in October 2023 3 episodes in October and 2 episodes in November. We discussed different options to include antiarrhythmic therapy EP guided therapy and metoprolol. She wants to try metoprolol succinate current dose of 25 mg daily. She says she took 25 mg of flecainide i.e. half of a 50 mg dose when she most recently had palpitations and she felt wiped out for several hours. Unclear as to whether the arrhythmia wiped her out or the flecainide wiped her out. I think it is the arrhythmia that wiped her out. She is showing some evidence of sinus node dysfunction. She understands that if symptoms change she needs to seek prompt medical attention. So her plan of care for right now is Toprol-XL 25 mg p.o. daily magnesium oxide 400 mg p.o. twice daily aspirin 81 mg daily metoprolol tartrate 25 mg p.o. twice daily as needed palpitations. Follow up : 3 months Provider Attestation - Scribe documentation All medical record entries made by the Scribe were at my direction and personally dictated by me. I have reviewed the chart and agree that the record accurately reflects my personal performance of the history, physical exam, discussion and plan. documented in this encounter [facility] Work Phone: 01-04-2024 Instructions Catia Stoddard LPN - 01/04/2024 2:30 PM EDT Please bring all medicines, vitamins, and herbal supplements with you when you come to the office. Prescriptions will not be filled unless you are compliant with your follow up appointments or have a follow up appointment scheduled as per instruction of your physician. Refills should be requested at the time of your visit. Fall Prevention Education Given documented in this encounter [facility] Work Phone: 01-01-2024 History of Present illness Narrative Patient was last seen by me in November 20. At that time extensive discussion was held about therapy for supraventricular tachycardia.came to the consensus that since the episodes [...] understands that she needs emergent medical attention. She was recommended a treadmill stress test, at her convenience this can be arranged. We can discuss the results of her treadmill stress test over the telephone. The fact that she had a negative troponin after being tachycardic at 200 for more than 15 minutes speaks against a limiting coronary artery disease. Accompanied by to the office. Subjective : Has a Fitbit and has been tracking heart rates. Palpitations are increasing in frequency. On a few occasions she had documented that her heart rate was close to 200. Once the episode resolved, she feels very tired and worn out for several hours. At times she takes metoprolol 25 mg, and reports that the palpitations resolved quicker, and she does not feel as wiped out. On 1 occasion when she was out of the metoprolol she took flecainide 50 mg, and says that the palpitations improved quickly. Does not complain of chest pressure tightness heaviness, at times she gets lightheaded with her palpitations. Recently she was at [facility] with a drug, and an EKG done at that time was reviewed and shows sinus tachycardia and right atrial abnormality. History so Far : 1. Patient with palpitations, associated with what [...] 4. Patient is on methotrexate for? Psoriasis she is off of this medication based on 01/01/2024 visit. 5. Stress perfusion imaging December 05, 2022-8.5 METS, 107% age-predicted maximum heart rate, terminated due to fatigue, normal blood pressure response, no dysrhythmia, normal perfusion, LVEF 65%. Objective Wt Readings from Last 3 Encounters: 01/01/24 83.3 kg (183 lb 9.6 oz) 11/06/22 76.2 kg (168 lb) Vitals: 01/01/24 1008 BP: 125/79 BP Location: Left arm Patient Position: Sitting BP Cuff Size: Adult Pulse: 62 Temp: 36.2 C (97.2 F) Weight: 83.3 kg (183 lb 9.6 oz) Height: 1.626 m (5' 4 ) Physical Exam: GENERAL APPEARANCE: in no acute distress. CHEST: Symmetric and non-tender. INTEGUMENT: Skin warm and dry HEENT: No gross abnormalities identified.No pallor or scleral icterus. NECK: Supple, no JVD, no bruit. NEURO/PSHCY: Alert and oriented x3; appropriate behavior and responses and responses LUNGS: Clear to auscultation bilaterally; normal respiratory effort. HEART: Rate and rhythm regular with no evident murmur; no gallop appreciated. ABDOMEN: Soft, non tender. MUSCULOSKELETAL: No gross deformities. EXTREMITIES: Warm There is no edema noted. Meds: Current Outpatient Medications Medication Instructions flecainide (TAMBOCOR) 100 mg, oral, Once as needed KlonoPIN 0.5 mg, oral, Daily magnesium oxide 400 mg, oral, Daily metoprolol succinate XL (TOPROL-XL) 25 mg, oral, Daily, Do not crush or chew. metoprolol succinate XL (TOPROL-XL) 25 mg, oral, Daily, Do not crush or chew. metoprolol tartrate (Lopressor) 25 mg tablet Take one tablet up to two times daily as needed for palpitations metoprolol tartrate (Lopressor) 25 mg tablet Take one tablet up to two times daily as needed for palpitations Allergies Allergen Reactions Ibandronate Myalgia LABS: Laboratory data from October 2022-sodium 144 potassium 4 GFR greater than 60 creatinine 0.83 hemoglobin 11.4 hematocrit 35 platelet count 1 50,000 Lipid profile August 2023 LDL 89 HDL 80 Patient Active Problem List Diagnosis Date Noted Never smoked cigarettes 01/01/2024 Class 1 obesity with body mass index (BMI) of 31.0 to 31.9 in adult 01/01/2024 Sinus tachycardia 01/01/2024 Family history of early CAD 01/01/2024 Post-menopausal 01/01/2024 Palpitations 01/01/2024 Dizziness 01/01/2024 History of paroxysmal supraventricular tachycardia 01/01/2024 Sinus bradycardia 01/01/2024 Assessment: 1. 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 Family history of early CAD ECG 12 lead (Clinic Performed) magnesium oxide 400 mg magnesium capsule metoprolol succinate XL (Toprol-XL) 25 mg [address] cardiac scoring wo IV contrast metoprolol tartrate (Lopressor) 25 mg tablet Holter [employer] metoprolol tartrate (Lopressor) 25 mg tablet metoprolol succinate XL (Toprol-XL) 25 mg 24 hr tablet 3. Post-menopausal ECG 12 lead (Clinic Performed) magnesium oxide 400 mg magnesium capsule metoprolol succinate XL (Toprol-XL) 25 mg [address] cardiac scoring wo IV contrast metoprolol tartrate (Lopressor) 25 mg tablet Holter [employer] metoprolol tartrate (Lopressor) 25 mg tablet metoprolol succinate XL (Toprol-XL) 25 mg 24 hr tablet 4. Class 1 obesity with body mass index (BMI) of 31.0 to 31.9 in adult, unspecified obesity type, unspecified whether serious comorbidity present ECG 12 lead (Clinic Performed) magnesium oxide 400 mg magnesium capsule metoprolol succinate XL (Toprol-XL) 25 mg [address] cardiac scoring wo IV contrast metoprolol tartrate (Lopressor) 25 mg tablet Holter [employer] metoprolol tartrate (Lopressor) 25 mg tablet metoprolol succinate XL (Toprol-XL) 25 mg 24 hr tablet 5. Never smoked cigarettes ECG 12 lead (Clinic Performed) magnesium oxide 400 mg magnesium capsule metoprolol succinate XL (Toprol-XL) 25 mg [address] cardiac scoring wo IV contrast metoprolol tartrate (Lopressor) 25 mg tablet Holter [employer] metoprolol tartrate (Lopressor) 25 mg tablet metoprolol succinate XL (Toprol-XL) 25 mg 24 hr tablet 6. Palpitations ECG 12 lead (Clinic Performed) magnesium oxide 400 mg magnesium capsule metoprolol succinate XL (Toprol-XL) 25 mg [address] cardiac scoring wo IV contrast metoprolol tartrate (Lopressor) 25 mg tablet Holter [employer] metoprolol tartrate (Lopressor) 25 mg tablet metoprolol succinate XL (Toprol-XL) 25 mg 24 hr tablet 7. History of paroxysmal supraventricular tachycardia ECG 12 lead (Clinic Performed) magnesium oxide 400 mg magnesium capsule metoprolol succinate XL (Toprol-XL) 25 mg [address] cardiac scoring wo IV contrast metoprolol tartrate (Lopressor) 25 mg tablet Holter [employer] metoprolol tartrate (Lopressor) 25 mg tablet metoprolol succinate XL (Toprol-XL) 25 mg 24 hr tablet 8. Dizziness ECG 12 lead (Clinic Performed) magnesium oxide 400 mg magnesium capsule metoprolol succinate XL (Toprol-XL) 25 mg [address] cardiac scoring wo IV contrast metoprolol tartrate (Lopressor) 25 mg tablet Holter [employer] metoprolol tartrate (Lopressor) 25 mg tablet metoprolol succinate XL (Toprol-XL) 25 mg 24 hr tablet 9. Sinus bradycardia ECG 12 lead (Clinic Performed) magnesium oxide 400 mg magnesium capsule metoprolol succinate XL (Toprol-XL) 25 mg [address] cardiac scoring wo IV contrast metoprolol tartrate (Lopressor) 25 mg tablet Holter [employer] metoprolol tartrate (Lopressor) 25 mg tablet metoprolol succinate XL (Toprol-XL) 25 mg 24 hr tablet Clinical decision makin. Resting EKG Enmanuel bradycardia 2. Frequency of palpitations increasing, and they are lasting longer, and she is very tired once they resolved. 3. Her Fitbit documented heart rates, but the rhythm is not available. The way she describes her symptoms, SVT is very likely. 4. Mother has a history of atrial fibrillation 5. I would like her to start magnesium oxide 400 mg daily. 6. 30-day TrueAbility monitor 7. Metoprolol succinate 25 mg p.o. daily, metoprolol tartrate 25 mg p.o. twice a day as needed for persistent palpitations 8. Coronary calcium score 9. Follow-up after testing. Follow up : after testing Provider Attestation - Scribe documentation All medical record entries made by the Scribe were at my direction and personally dictated by me. I have reviewed the chart and agree that the record accurately reflects my personal performance of the history, physical exam, discussion and plan. documented in this encounter [facility] Work Phone: 01-01-2024 Instructions Shauna Casarez LPN - 01/01/2024 10:00 AM EDT Hold flecainide HARMONY monitor CT cardiac calcium score Begin metoprolol succinate 25 mg daily Metoprolol tartrate 25 mg twice daily as needed Magnesium 400mg daily Return after monitor documented in this encounter [facility] Work Phone: 08-04-2023 Evaluation note Encounter Date Diagnosis Assessment [...] changes and monitor patient closely with diabetic artificial glass eye maker. -Begin 0.25 Ozempic every week. The patient will stop the Ozempic any significant nausea, vomiting, abdominal pain or other side effects. Jul, Body mass index [BMI] 31.0-31.9, adult (ICD-10 - Z68.31) [facility] Other 02-17-2023 Evaluation note* Encounter Date Diagnosis Assessment Notes Treatment Notes Treatment Clinical Notes Oct, Palpitations (ICD-10 - R00.2) Echo needs completed. Will forward that, this OV and the discharge summary to [facility]. Lorena understands logically to stop adipex. Of note, she was considering med for ADD in the furture. This SVT would force our decision to avoid stimulants in the future. Oct, SVT (supraventricular tachycardia) (ICD-10 - I47.1) [facility] Other 02-10-2023 Evaluation note* Encounter Date Diagnosis Assessment Notes Treatment Notes Treatment Clinical Notes Oct, Overweight (ICD-10 - E66.3) Followup in 30 days. Monitor for adverse side effects Oct, Body mass index [BMI] 29.0-29.9, adult (ICD-10 - Z68.29) Oct, Anxiety (ICD-10 - F41.9) chronic issue. renewed meds. symptoms stable [facility] Other 01-13-2023 Evaluation note* Encounter Date Diagnosis [...] vision occur, go to ER . obese [facility] Other 03-12-2022 History of Present illness Narrative* [...] valvular heart disease. * Reviewed records from [facility] dated 10/12/2022. * Dr. Negron's [...] interval problems arise * Thank you Dr. Yee for allowing me to participate in Lorena's care, please do not hesitate to call if further questions arise, * Sincerely, * Rita Rocha MD [facility] [address] DO Work Phone: [phone]) 202-532803-09-2022 History of Present illness Narrative* Patient is [...] valvular heart disease. * Reviewed records from [facility] dated 10/12/2022. * Dr. Negron's [...] interval problems arise * Thank you Dr. Yee for allowing me to participate in Lorena's care, please do not hesitate to call if further questions arise, * Sincerely, * Rita Rocha MD [facility] [address] DO Work Phone: Chief complaint Narrative - Reported* LORENA VILLALOBOS is being seen for a cardiovascular evaluation. * LORENA VILLALOBOS is being seen for SVT. [facility] [address] DO Work Phone: Chizv complaint Narrative - Reported* LORENA VILLALOBOS is being seen for a cardiovascular evaluation. * LORENA VILLALOBOS is being seen for SVT. [facility] [address] DO Work Phone: Chief complaint+Reason for visit Narrative* Chief Complaint Headache REferral Dr. Radha Fish Reason for Visit Class 1 obesity with body mass index (BMI) of 32.0 to 32.9 in adult [facility] Work Phone: Evaluation noteNo [employer] Other Evaluation note* Diagnosis Sinus tachycardia Other specified cardiac dysrhythmias Family history of early CAD Family history of ischemic heart disease Post-menopausal Asymptomatic postmenopausal status (age-related) (natural) Class 1 obesity with body mass index (BMI) of 31.0 to 31.9 in adult, unspecified obesity type, unspecified whether serious comorbidity present Never smoked cigarettes Palpitations History of paroxysmal supraventricular tachycardia Dizziness Dizziness and giddiness Sinus bradycardia Other specified cardiac dysrhythmias Sinus tachycardia Other specified cardiac dysrhythmias Family history of early CAD Family history of ischemic heart disease Post-menopausal Asymptomatic postmenopausal status (age-related) (natural) Class 1 obesity with body mass index (BMI) of 31.0 to 31.9 in adult, unspecified obesity type, unspecified whether serious comorbidity present Never smoked cigarettes Palpitations History of paroxysmal supraventricular tachycardia Dizziness Dizziness and giddiness Sinus bradycardia Other specified cardiac dysrhythmias documented in this encounter [facility] Work Phone: Evaluation note* Diagnosis Typical atrial flutter (Multi)- Primary Sinus tachycardia Other specified cardiac dysrhythmias Palpitations History of paroxysmal supraventricular tachycardia Class 1 obesity with body mass index (BMI) of 31.0 to 31.9 in adult, unspecified obesity type, unspecified whether serious comorbidity present Never smoked cigarettes Family history of early CAD Family history of ischemic heart disease Post-menopausal Asymptomatic postmenopausal status (age-related) (natural) Dizziness Dizziness and giddiness Sinus bradycardia Other specified cardiac dysrhythmias documented in this encounter [facility] Work Phone: Evaluation note* Diagnosis Sinus tachycardia Other specified cardiac dysrhythmias Family history of early CAD Family history of ischemic heart disease Post-menopausal Asymptomatic postmenopausal status (age-related) (natural) Class 1 obesity with body mass index (BMI) of 31.0 to 31.9 in adult, unspecified obesity type, unspecified whether serious comorbidity present Never smoked cigarettes Palpitations History of paroxysmal supraventricular tachycardia Dizziness Dizziness and giddiness Sinus bradycardia Other specified cardiac dysrhythmias documented in this encounter [facility] Work Phone: Evaluation noteNo assessment information available [facility] Work Phone: Evaluation note* Author Elizabeth Muñoz [facility] Authored June 03, 2024 9: 54am Assessment: Highest weight: 192.0 lbs Start weight: 180.6lbs. Starting Date: 06-03-2024 1. Abnormal weight gain 2. Obesity-the patient will treat with long-term lifestyle changes of improved nutrition, increased exercise and activity, stress reduction, adequate sleep and behavioral modification versus short-term dieting. [ ] 3. [ ] 4. [ ] 5. [ ] 6. [ ] 7. [ ] 8. [ ] 9. [ ] 10. [ ] 11. [ ] Follow up with me in 6 weeks. New labs needed: [TSH, cholesterol profile, and CMP] The patient was instructed to consider logging all foods and caloric beverages. I highly recommended minimizing or stopping caloric beverages including alcohol. The importance of preplanning, shopping at the edge of the store, decreasing unhealthy food cues and environmental control stressed. I recommend packing snacks and meals when out of the home. Remove trigger/unhealthy foods if possible from the home. No macronutrient is completely restricted. We discussed the addictive nature and unhealthy biological changes that occur with ultra processed food. We discussed the brain and peripheral biological changes with obesity that make it a chronic disease. Importance of cooking most food items from scratch discussed. No skipping any meals. Avoid added sugar, refined starches, and added fats. I highly recommended preference for whole foods/real foods. Foods from the farm, not from the factory. The plate method discussed and handout given. Lean unprocessed protein with each meal and each snack to help control appetite, decrease cravings and lessen muscle loss with weight loss advised. Consider use of a protein shake or protein bar instead of missing a meal. The patient will try to get at least 5 or more servings of low carbohydrate veggies/salads daily. Recommend regular follow-up with our registered dietitian. Benefits of regular exercise including cardio and resistance training discussed and recommended as appropriate for the patient. Slowly increase activity. Our exercise program was recommended with our professor of rhetoric/obesity exercise group. Handout given. Our free weekly group support/food triggers program was highly recommended to help with long-term behavioral change and support. Handout given. The patient must start healthy behavioral changes. The patient was instructed on good sleep hygiene and on the importance of adequate sleep. Circadian rhythm and the importance of mealtime discussed. I recommended stress reduction. Medication addition and subtraction options discussed. Risks and benefits of prescribed meds discussed. Initial [id number]-[id number] interview/evaluation. The patient was counseled in detail on the options for weight loss in an individual setting. [ ] minutes was spent caring for the patient, counseling/educating patient on the options for the treatment of obesity and related healthcare issues. The program's treatment goals were reviewed with the patient. Each aspect of the program was discussed with the patient. [facility] Work Phone: Evaluation note* Diagnosis History of paroxysmal supraventricular tachycardia Sinus tachycardia Other specified cardiac dysrhythmias BMI 30.0-30.9,adult Never smoked cigarettes documented in this encounter [facility] Work Phone: Evaluation note* Diagnosis Palpitations History of paroxysmal supraventricular tachycardia Class 1 obesity with body mass index (BMI) of 31.0 to 31.9 in adult, unspecified obesity type, unspecified whether serious comorbidity present Never smoked cigarettes Sinus tachycardia Other specified cardiac dysrhythmias Family history of early CAD Family history of ischemic heart disease Post-menopausal Asymptomatic postmenopausal status (age-related) (natural) Dizziness Dizziness and giddiness Sinus bradycardia Other specified cardiac dysrhythmias Medication course changed documented in this encounter [facility] Work Phone: Evaluation note* Diagnosis History of paroxysmal supraventricular tachycardia- Primary documented in this encounter [facility] Work Phone: History general Narrative - Reported* Type Description Date Medical History Psoriasis Medical History Anxiety Medical History Depression Surgical History appendectomy Surgical History cataract 2013 Hospitalization History childbirths Hospitalization History see above [employer] Other History general Narrative - Reported* Type Description Date Medical History Psoriasis Medical History Anxiety Medical History Depression Medical History Basel cell carcinoma Medical History V tach Surgical History appendectomy Surgical History cataract 2013 Surgical History Basel cell removal forehead 08/03/23 Hospitalization History childbirths Hospitalization History see above [employer] Other Reason for referral (narrative)* Consultation (Routine) - Authorized Specialty Diagnoses / Procedures Referred By Ernesto dunlap Referred To Contact Cardiology Diagnoses Palpitations History of paroxysmal supraventricular tachycardia Sinus tachycardia Rita Rocha MD [address] [place] [id number] Jamin Disla MD [address] [place] [id number] Referral ID Status Reason Start Date Expiration Date Visits Requested Visits Authorized [id number] Authorized Specialty Services Required 03/14/2024 03/14/2025 1 1 * Consultation (Routine) - Authorized Specialty Diagnoses / Procedures Referred By Ernesto dunlap Referred To Contact Cardiology Diagnoses Sinus tachycardia Procedures Follow Up In Cardiology Rita Rocha MD [address] [place] [phone] Rita Rocha MD [address] [place] [id number] Referral ID Status Reason Start Date Expiration Date V isits Requested Visits Authorized [id number] Authorized 03/14/2024 03/14/2025 1 1 [facility] Work Phone: Summary Purpose Family History Unknown Family Member [...] Status:Active Heart problem: Father, Siste r Status:Active Relationship Condition Age at Onset Recorded Date/T giovani brother Unknown father Myocardial infarction Unknown Unknown Heart disease Unknown family member Unknown mother Unknown Malignant neoplasm Unknown Family history of lung cancer Unknown Advance Directives Advance Directive Response Recorded Date/ Time Advance Directives No July 7:43pm Reason for Referral Specialty Diagnoses / Procedures Referred By Contac t Referred To Contact Diagnoses History of paroxysmal supraventricular tachycardia Procedures ECG 12 Lead Jamin Disla MD [address] [place] [phone] Referral ID Status Reason Start Date Expiration Date V isits Requested Visits Authorized [id number] Authorized 05/10/2024 05/10/2025 1 1 Specialty Diagnoses / Procedures Referred By Contac t Referred To Contact Diagnoses Sinus tachycardia Procedures ECG 12 Lead Rita Rocha MD [address] [place] [address] Referral ID Status Reason Start Date Expiration Date V isits Requested Visits Authorized [id number] Authorized 01/04/2024 01/03/2025 1 1 Specialty Diagnoses / Procedures Referred By Contac t Referred To Contact Cardiology Diagnoses Sinus tachycardia Family history of early CAD Post-menopausal Class 1 obesity with body mass index (BMI) of 31.0 to 31.9 in adult, unspecified obesity type, unspecified whether serious comorbidity present Never smoked cigarettes Palpitations History of paroxysmal supraventricular tachycardia Dizziness Sinus bradycardia 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 [address] [place] [address] Referral ID Status Reason Start Date Expiration Date V isits Requested Visits Authorized [id number] Pending Review 01/01/2024 12/31/2024 1 1 Specialty Diagnoses / Procedures Referred By Contac t Referred To Contact Radiology Diagnoses Sinus tachycardia Family history of early CAD Post-menopausal Class 1 obesity with body mass index (BMI) of 31.0 to 31.9 in adult, unspecified obesity type, unspecified whether serious comorbidity present Never smoked cigarettes Palpitations History of paroxysmal supraventricular tachycardia Dizziness Sinus bradycardia Procedures CT cardiac scoring wo IV contrast Rita Rocha MD [address] [facility] [address] [place] [address] Referral ID Status Reason Start Date Expiration Date Visits Requested Visits Authorized [id number] Pending Review Perform Procedure 01/01/2024 12/31/2024 1 1 Specialty Diagnoses / Procedures Referred By Contac t Referred To Contact Diagnoses Sinus tachycardia Family history of early CAD Post-menopausal Class 1 obesity with body mass index (BMI) of 31.0 to 31.9 in adult, unspecified obesity type, unspecified whether serious comorbidity present Never smoked cigarettes Palpitations History of paroxysmal supraventricular tachycardia Dizziness Sinus bradycardia Procedures ECG 12 lead (Clinic Performed) Rita Rocha MD [address] [facility] [address] [place] [address] Referral ID Status Reason Start Date Expiration Date V isits Requested Visits Authorized [id number] Authorized 01/01/2024 12/31/2024 1 1 Chief Complaint and Reason for Visit Chief Complaint Headache Additional Source Comments REASON FOR VISIT (unrecogniz ed section and content) Reason Comments Follow-up Annual follow up. La st seen 10/2022 Specialty Diagnoses / Procedures Referred By Contac t Referred To Contact Diagnoses Sinus tachycardia Family history of early CAD Post-menopausal Class 1 obesity with body mass index (BMI) of 31.0 to 31.9 in adult, unspecified obesity type, unspecified whether serious comorbidity present Never smoked cigarettes Palpitations History of paroxysmal supraventricular tachycardia Dizziness Sinus bradycardia Procedures ECG 12 lead (Clinic Performed) Rita Rocha MD [address] [address] Referral ID Status Reason Start Date Expiration Date V isits Requested Visits Authorized [id number] Authorized 01/01/2024 12/31/2024 1 1 Reason Comments Follow-up Holter Monitor per G M sooner OV Specialty Diagnoses / Procedures Referred By Ernesto t Referred To Contact Diagnoses Sinus tachycardia Procedures ECG 12 Lead Rita Rocha MD [address] [facility] [address] [place] [address] Referral ID Status Reason Start Date Expiration Date V isits Requested Visits Authorized [id number] Authorized 01/04/2024 01/03/2025 1 1 Specialty Diagnoses / Procedures Referred By Ernesto t Referred To Contact Radiology Diagnoses Sinus tachycardia Family history of early CAD Post-menopausal Class 1 obesity with body mass index (BMI) of 31.0 to 31.9 in adult, unspecified obesity type, unspecified whether serious comorbidity present Never smoked cigarettes Palpitations History of paroxysmal supraventricular tachycardia Dizziness Sinus bradycardia Procedures CT cardiac scoring wo IV contrast Rita Rocha MD [address] [address] Referral ID Status Reason Start Date Expiration Date Visits Requested Visits Authorized [id number] Pending Review Perform Procedure 01/01/2024 12/31/2024 1 1 Reason Comments Follow-up Specialty Diagnoses / Procedures Referred By Ernesto t Referred To Contact Cardiology Diagnoses Sinus tachycardia Procedures Follow Up In Cardiology Rita Rocha MD [address] [address] Phone: tel: fax: Rita Rocha MD [address] [facility] [address] [place] [address] Phone: tel: fax: Referral ID Status Reason Start Date Expiration Date V isits Requested Visits Authorized [id number] Authorized 03/14/2024 03/14/2025 1 1 Reason Comments Follow-up HARMONY / issues Reason Comments Follow-up Specialty Diagnoses / Procedures Referred By Contac t Referred To Contact Diagnoses History of paroxysmal supraventricular tachycardia Procedures ECG 12 Lead aJmin Disla MD [address] [place] [address] Referral ID Status Reason Start Date Expiration Date V isits Requested Visits Authorized [id number] Authorized 05/10/2024 05/10/2025 1 1 INFORMATION SOURCE (unrecogn ized section and content) DATE CREATED AUTHOR 10/31/2022 [facility] [place] [facility] DATE CREATED AUTHOR AUTHOR'S ORGANIZ ATION 11/08/2022 [facility] DATE CREATED AUTHOR AUTHOR'S ORGANIZ ATION 11/08/2022 [employer] DATE CREATED AUTHOR AUTHOR'S ORGANIZ ATION 12/07/2022 [facility] DATE CREATED AUTHOR AUTHOR'S ORGANIZ ATION 04/09/2024 [facility] DATE CREATED AUTHOR AUTHOR'S ORGANIZ ATION 05/16/2024 [facility] DATE CREATED AUTHOR AUTHOR'S ORGANIZ ATION 07/17/2024 [facility] [employer]drop[employer] Operator Teams (unrecognized sec tion and content) Team Status: Active Member Role Status Dates Veorna Yee MD Primary Care Provider Active Team Status: Inactive Member Role Status Dates Verona Yee MD Primary Care Provide r, Attending Provider Active Start: March 11, 2024 End: March 11, 2024 Team Status: Inactive Member Role Status Dates Verona Yee MD Primary Care Provider Active Start: June 03, 2024 End: June 03, 2024 Yan Burrell MD Attending Provider Active Start: June 03, 2024 End: June 03, 2024 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 [address] [place] [address] Professor Of Chemical Engineering Cardiology 12/22/23 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 [address] [place] [address] Professor Of Chemical Engineering Cardiology 12/22/23 Costume Designer Relationship Specialty Start Date End Date Verona Yee MD [address] [facility] [place] [address] PCP - General 11/06/22 Rita Rocha MD [address] [facility] [place] [address] Professor Of Chemical Engineering Cardiology 12/22/23 Team Status: Active Member Role Status Dates Verona Yee MD Attending Provider Active St art: January 08, 2024 Costume Designer Relationship Specialty Start Date End Date Verona Yee MD [address] [facility] [place] [address] PCP - General 11/06/22 Rita Rocha MD [address] [facility] [place] [address] [place] [address] Professor Of Chemical Engineering Cardiology 12/22/23 Costume Designer Relationship Specialty Start Date End Date Verona Yee MD [address] [facility] [place] [address] [place] [address] PCP - General 11/06/22 Rita Rocha MD [address] [place] [address] Professor Of Chemical Engineering Cardiology 12/22/23 Costume Designer Relationship Specialty Start Date End Date Verona Yee MD [address] [place] [address] PCP - General 11/06/22 Rita Rocha MD [address] [place] [address] Professor Of Chemical Engineering Cardiology 12/22/23 Goals (unrecognized section and content) Goals may be documented in a n alternate section FOR RECORDS PERTAINING TO PATIENTS WHO ARE [...] BE BASED ON THE PRIMARY CLINICAL RECORDS. [facility] [employer] [facility]. provides no warranty or guarantee of the accuracy or completeness of information in this document.
[2024-08-25 10:02] LABS: Basophils Percent Auto 0.4 % (0.2-2.0); Eosinophils Absolute Auto 0.1 10^3/uL (0.0-0.7); Eosinophils Percent Auto 1.4 % (0.9-7.0); Hematocrit 40.6 % (36.0-48.0); Hemoglobin 13.1 g/dL (12.0-16.0); Immature Granulocytes Abs Auto 0.02 10^3/uL (0.00-0.03); Immature Granulocytes Pct Auto 0.3 % (0.0-0.5); Lymphocytes Absolute Auto 1.6 10^3/uL (1.2-3.8); Lymphocytes Percent Auto 22.9 % (20.5-60.0); Mean Corpuscular HGB Conc 32.3 g/dL (29.9-35.2); Mean Corpuscular Hemoglobin 29.8 pg (26.7-34.0); Mean Corpuscular Volume 92.3 fL (81.0-99.0); Mean Platelet Volume 11.2 fL (9.5-13.5); Monocytes Absolute Auto 0.5 10^3/uL (0.3-0.8); Neutrophils Absolute Auto 4.8 10^3/uL (1.4-6.5); Platelet Count 188 10^3/uL (150-450); Red Cell Distribution Width 12.7 % (11.0-15.0)
[2024-08-25 10:46] LABS: Alanine Aminotransferase 25 U/L (14-59); Albumin Globulin Ratio 0.9; Albumin Level 3.1 g/dL (3.4-5.0); Alkaline Phosphatase 83 U/L (46-116); Anion Gap 8.9; Aspartate Amino Transferase 19 U/L (15-37); Bilirubin Total 0.4 mg/dL (0.2-1.0); Calcium 8.9 mg/dL (8.5-10.1); Carbon Dioxide 32.7 mmol/L (21.0-32.0); Chloride 107 mmol/L (98-107); Chol HDL Ratio 2.9; Cholesterol 189 mg/dL (<=200); Estimated GFR (African America >60 (>=60 mL/min/1.73m^2); Estimated GFR (Non-African Ame 57 (>=60 mL/min/1.73m^2); Globulin 3.5 g/dL; Glucose 94 mg/dL (74-106); HDL Cholesterol 65 mg/dL (40-60); Potassium 4.6 mmol/L (3.5-5.1); Sodium 144 mmol/L (136-145); Thyroid Stimulating Hormone 3.169 uIU/mL (0.358-3.740); Total Protein 6.6 g/dL (6.4-8.2); Triglycerides 130 mg/dL (<=150)
== END 2024-08-25 09:29 | disposition home or self-care (01) ==
LOC: LAB 09:29
PROVIDERS: PCP Family Medicine; Visit Provider Family Medicine
DX: Z00.00 Encounter for general adult medical examination without abnormal findings (principal)
CPT/HCPCS: 36415; 80053; 80061; 84443; 85025

== ENCOUNTER 2024-09-09 10:57 | Outpatient (OUT) | payer BC, SELFPAY ==
--- NOTE | 2024-09-09 11:30 | MM_ITS ---
Patient Name: RASHAD ALMEIDA MR#: [id number] : 1965 Exam Date: 09/09/2024 Ordering Doctor: DR Verona Corral M.D. RADIOLOGY REPORT PROCEDURE: MM TOMOSYNTHESIS SCREENING BI COMPARISON: MM TOMOSYNTHESIS SCREENING BI, 08/14/2023. MG MAMM SCREEN RADHA W CAD, 08/10/2020. MG MAMM SCREEN RADHA W CAD, 05/27/2018. MAMMO RADHA SCREEN, 10/08/2006. INDICATIONS: Screening Calculator Name NCI Breast Cancer Risk Assessment Tool 5 Year Breast Cancer Risk 1.20% Lifetime Breast Cancer Risk 6.70% Personal Breast Cancer No Personal Ovarian Cancer No Treatments None Family Cancers Mother with lung cancer at age 72. LOCATION: [facility] BREAST COMPOSITION: The breasts are heterogeneously dense,which may obscure small masses. FINDINGS: DIAGNOSTIC CATEGORY 1--NEGATIVE. RIGHT BREAST: No significant suspicious finding. No significant change has occurred. LEFT BREAST: No significant suspicious finding. No significant change has occurred. RECOMMENDATIONS: ROUTINE MAMMOGRAM AND CLINICAL EVALUATION IN 12 MONTHS. PLEASE NOTE: A NORMAL MAMMOGRAM DOES NOT EXCLUDE THE POSSIBILITY OF BREAST CANCER. A CLINICALLY SUSPICIOUS PALPABLE LUMP SHOULD BE BIOPSIED. Dictated by: Ludwig Salcedo M.D. on 09/09/2024 at 15:12 Approved by: Ludwig Salcedo M.D. on 09/09/2024 at 15:14
== END 2024-09-09 10:58 | disposition home or self-care (01) ==
LOC: MAMMO 10:57
PROVIDERS: PCP Family Medicine; Visit Provider Family Medicine
DX: Z12.31 Encounter for screening mammogram for malignant neoplasm of breast (principal); Z80.1 Family history of malignant neoplasm of trachea, bronchus and lung
CPT/HCPCS: 77063; 77067

== ENCOUNTER 2024-09-16 13:29 | Outpatient (OUT) | payer BC, SELFPAY ==
--- NOTE | 2024-09-16 13:32 | CT_ITS ---
The [address] [address] Patient Name: RASHAD ALMEIDA MRN: [id number] date: 1965 Sex: F Assigned Patient Location: CT Current Patient Location: CT Accession/Order Number: [id number] Exam Date: 09/16/2024 14:20 Report Date: 09/16/2024 16:21 At the request of: YNES YEE Procedure: CT abdomen pelvis w con EXAMINATION: CT abdomen pelvis w con HISTORY: Anomaly Of Spleen COMPARISON: No relevant comparison available. TECHNIQUE: Axial, Coronal, and Sagittal images were obtained without and/or with IV contrast as indicated by examination type. Dose reduction techniques were achieved by using automated exposure control and/or adjustment of mA and/or kV according to patient size and/or use of iterative reconstruction technique. FINDINGS: LUNG BASES: No visible pulmonary or pleural disease. LIVER: No enlargement, atrophy, suspicious density, or significant focal lesion. BILIARY: No dilatation or calcification. PANCREAS: No lesion, fluid collection, or abnormal duct dilatation. SPLEEN: No enlargement or focal lesion. ADRENALS: No mass or enlargement. KIDNEYS: No mass, obstruction, or calcification. BOWEL/MESENTERY: No visible mass, obstruction, or bowel wall thickening. AORTA/VASCULAR: No aneurysm or dissection. RETROPERITONEUM: No mass or adenopathy. LYMPH NODES: No adenopathy. URINARY BLADDER: No visible focal wall thickening, lesion, or calculus. PELVIC ORGANS: No visible mass. Pelvic organs appropriate for patient age. ABDOMINAL WALL: No mass or hernia. BONES: No bony lesion or fracture. OTHER: Negative. CT/CT abdomen pelvis w con IMPRESSION: 1. No overtly suspicious abnormality of spleen. There is a small adjacent nodule most consistent with an incidental splenule. Electronically authenticated by: BECKI CAN Date: 09/16/2024 16:21
== END 2024-09-16 13:30 | disposition home or self-care (01) ==
LOC: CT 13:29
PROVIDERS: PCP Family Medicine; Visit Provider Family Medicine
DX: Q89.09 Congenital malformations of spleen (principal)
CPT/HCPCS: 74177; Q9967